=== PATIENT | female | born 1935 | race Caucasian/White ===

== ENCOUNTER 2024-10-12 17:21 | Outpatient (NON) | payer MEDICARE, SELFPAY ==
--- OUTSIDE RECORDS SUMMARY | 2024-10-12 17:26 | XMS_ITS | Clinical Summary ---
Author Organization [facility] 2 Address [address] [facility] [place] [address] Care Team Providers Care Missile Technician Name Role Phone Felipe Rodriguez MD Primary Care Provider Federico Jay MD Unavailable [phone] Allergies Active Allergy Reactions Criticality Noted Date Comments Codeine Other (See comments) Low Reaction: Other Memantine-Donepezil Agitation Low 08/25/2017 Opioids - Morphine Analogues Other (See comments) Low 08/15/2019 According to the family the patient cannot tolerate narcotics as she always needs Narcan for reversal. Only Tylenol for pain control. Medications isosorbide mononitrate ER (IMDUR) 30 mg 24 hr tablet 8 Active levothyroxine (SYNTHROID, LEVOTHROID) 100 mcg tablet 8 Active omeprazole (PriLOSEC) 20 mg capsule 8 Active ipratropium (ATROVENT) 0.03 % nasal spray Active metoprolol XL (TOPROL XL) 25 mg 24 hr tablet Acti ve acetaminophen (TYLENOL EXTRA STRENGTH) 500 mg tablet Active tamsulosin (FLOMAX) 0.4 mg extended release capsule 8 Active polycarbophil (FIBERCON) 625 mg tablet Take 625 mg by mouth daily. Active sennosides (SENNA LAX ORAL) Take by mouth. Active multivitamin (MULTI-DAY ORAL) Take by mouth. Active hydrocortisone 1 % lotion Apply topically 2 (two) times a day. Active DULoxetine DR (CYMBALTA) 20 mg capsule Take two capsules in the evening with food. 60 capsule 1 8 Active Additional Information Patient taking differently: 60 mg, Take two capsules in the evening with food., Reported on 09/14/2019 pregabalin (LYRICA) 100 mg capsule Take 150 mg by mouth 2 (two) times a day Active atorvastatin (LIPITOR) 80 mg tablet Take 80 mg by mouth daily. Active lutein 20 mg capsule Take 20 mg by mouth. Active calcium carbonate (OS-BRITTNEY) 650 mg calcium (1,625 mg) tablet Take 1 tablet by mouth daily Active aspirin 81 mg enteric coated tablet Take 81 mg by mouth daily 9 Active acetaminophen/di phenhydramine (TYLENOL PM EXTRA STRENGTH ORAL) Take by mouth Active vit C/E/Zn/coppr/lut ein/zeaxan (PRESERVISION AREDS-2 ORAL) Take by mouth Ac tive Active Problems Problem Noted Date Diagnosed Date Soft tissue mass 08/18/2018 Overview (08/18/2018): Added automatically from request for surgery [id number] Abnormal findings on diagnostic imaging of diges tive system 08/18/2018 Overview (08/18/2018): Added automatically from request for surgery [id number] Paraparesis of both lower limbs 02/22/2018 Sensory loss 02/22/2018 Neuropathic pain 02/22/2018 Polypharmacy 02/22/2018 Sacroiliitis 10/07/2017 Lumbar radiculopathy 10/07/2017 Spondylolisthesis 08/29/2017 Spinal stenosis of lumbar region 08/29/2017 Disorder of bile duct 08/03/2017 Surgical History Surgery Date Site/Laterality Comments NE ERCP REMOVE CALCULI/DEBRI S BILIARY/PANCREAS DUCT NE CORRJ HLX VLGS BNCTY SESM DC RESCJ PROX PHLX BASE Bunion Correction By Ochoa Procedure - (Added by TW Conv) WRIST SURGERY LUMBAR NERVE STIMLATOR INSERTION 05/24/2018 N/A HYSTERECTOMY CHOLECYSTECTOMY LUMBAR FUSION Medical History Medical History Date Comments DVT (deep venous thrombosis) (HCC) Urinary frequency Arthritis Sciatica Hypertension Memory deficit Myocardial infarction (HCC) Dyslipidemia GERD (gastroesophageal reflux disease) Hypothyroidism Spondylolisthesis Family History Medical History Relation Name Comments Arthritis Brother Diabetes type II Brother Heart disease Brother Hypertension Brother Hypertension Daughter Heart disease Father Alcohol abuse Mother Arthritis Sister Hypertension Sister Stroke Sister Gout Son Heart disease Son Hypertension Son Relation Name Status Comments Brother Daughter Father Mother Sister Son Social History Tobacco Use Types Packs/Day Years Used Date Smoking Tobacco: Former Cigarettes Q uit: 2001 Smokeless Tobacco: Never Alcohol Use Standard Drinks/Week Comments Yes 0 (1 standard drink = 0.6 oz pur e alcohol) RARE Comments Unknown Sex and Gender Information Value Date Recorded Sex Assigned at Not on file Legal Sex Female 3:21 AM JOURNEYMAN PRESSMAN Gender Identity Not on file Sexual Orientation Not on file Obstetrics History Last Filed Vital Signs Vital Sign Reading Time Taken Comments Blood Pressure 170/77 09/14/2019 2:40 PM CDT Pulse 71 09/14/2019 2:40 PM CDT Temperature 36.7 C (98 F) 09/14/2019 2:40 PM CDT Respiratory Rate 11 08/30/2018 2:41 PM JOURNEYMAN PRESSMAN Oxygen Saturation 99% 08/30/2018 2:41 PM JOURNEYMAN PRESSMAN Inhaled Oxygen Concentration - - Weight 64.6 kg (142 lb 6.4 oz) 09/14/2019 2:40 P M CDT Height 149.9 cm (4' 11 ) 08/30/2018 1:12 PM JOURNEYMAN PRESSMAN Body Mass Index 28.76 08/30/2018 1:12 PM JOURNEYMAN PRESSMAN Plan of Treatment Not on file Medical Devices Implanted Type Area Brownell Operator Device Identifier Shelf Expiration Date Model / Serial / Lot Spinal Cord Stimulator- Implanted: by Pasha Sanchez MD (Quantity not on file) Spinal Cord Stimulator Left: Back Med[employer]onic Neuro [id number] / [id number] H / Description:Nerve stimulator for leg pain - confirmed Full Body eligible Pt knows to bring external controller and is able to put into MRI mode. Hardware Spine Lumbar Insurance [place] [id number] MDCR HMO REF [place] [address] Advance Directives For more information, please contact: [phone] Documents on File Type Date Recorded Patient Audio Visual Facilities Engineer Expl anation ADVANCE DIRECTIVE 11/26/2017 12:00 AM ADVANCE DIRECTIVE 09/14/2017 11:22 PM ADVANCE DIRECTIVE 08/15/2017 12:00 AM * Full Code (Latest Code Status on File) Date Activated Date Inactivated Comments 08/30/2018 12:47 PM 08/30/2018 8:48 PM Care Teams Missile Technician Relationship Specialty [place] [address] [place] [address] PCP - General 09/22/17 [place] [address] [place] [address] Referring Physician Gastroenterology 09/04/18
--- OUTSIDE RECORDS SUMMARY | 2024-10-12 17:26 | XMS_ITS | Referral Summary ---
Author Organization [facility] Medical [facility] 2 Address [address] [facility] [place] [address] Care Team Providers Care Glass Toughening Operator Name Role Phone Felipe Rodriguez MD Primary Care Provider Federico Jay MD Unavailable [phone] Allergies Active Allergy Reactions Criticality Noted Date [...] (08/18/2018): Added automatically from request for surgery [id number] Abnormal findings on diagnostic imaging of diges tive system 08/18/2018 Overview (08/18/2018): Added automatically from request for surgery [id number] Paraparesis of both lower limbs 02/22/2018 Sensory loss 02/22/2018 Neuropathic pain 02/22/2018 Polypharmacy 02/22/2018 Sacroiliitis 10/07/2017 Lumbar radiculopathy 10/07/2017 Spondylolisthesis 08/29/2017 Spinal stenosis of lumbar region 08/29/2017 Disorder of bile duct 08/03/2017 Social History Tobacco Use Types Packs/Day Years Used Date Smoking Tobacco: Former Cigarettes Q uit: 2002 Smokeless Tobacco: Never Alcohol Use Standard Drinks/Week Comments Yes 0 (1 standard drink = 0.6 oz pur e alcohol) RARE Comments Unknown Sex and Gender Information Value Date Recorded Sex Assigned at Not on file Legal Sex Female 3:21 AM REEL WINDER Gender Identity Not on file Sexual Orientation Not on file Last Filed Vital Signs Vital Sign Reading Time Taken Comments Blood Pressure 170/77 09/14/2019 2:40 PM CDT Pulse 71 09/14/2019 2:40 PM CDT Temperature 36.7 C (98 F) 09/14/2019 2:40 PM CDT Respiratory Rate 11 08/30/2018 2:41 PM REEL WINDER Oxygen Saturation 99% 08/30/2018 2:41 PM REEL WINDER Inhaled Oxygen Concentration - - Weight 64.6 kg (142 lb 6.4 oz) 09/14/2019 2:40 P M CDT Height 149.9 cm (4' 11 ) 08/30/2018 1:12 PM REEL WINDER Body Mass Index 28.76 08/30/2018 1:12 PM REEL WINDER Plan of Treatment Not on file Medical Devices Implanted Type Area Football Scout Device Identifier Shelf Expiration Date Model / Serial / Lot Spinal Cord Stimulator- Implanted: by Pasha Sanchez MD (Quantity not on file) Spinal Cord Stimulator Left: Back [employer] Neuro [id number] / [id number] H / Description:Nerve stimulator for leg pain - confirmed Full Body eligible Pt knows to bring external controller and is able to put into MRI mode. Hardware Spine Lumbar Insurance [facility] Address: [facility] [address] [place] [address] [facility] Address: [address] [address] [place] [address] [facility] MDCR HMO REF [facility] Address: [address] [address] [place] [address] Advance Directives For more information, please contact: [phone] Documents on File Type Date Recorded Patient Occ Therapist Expl anation ADVANCE DIRECTIVE 11/26/2017 12:00 AM ADVANCE DIRECTIVE 09/14/2017 11:22 PM ADVANCE DIRECTIVE 08/15/2017 12:00 AM * Full Code (Latest Code Status on File) Date Activated Date Inactivated Comments 08/30/2018 12:47 PM 08/30/2018 8:48 PM Care Teams Glass Toughening Operator Relationship Specialty [place] [address] [facility] [address] [place] [address] PCP - General 09/22/17 [place] [address] [place] [address] Referring Physician Gastroenterology 09/04/18
--- OUTSIDE RECORDS SUMMARY | 2024-10-12 17:26 | XMS_ITS | Encounter Summary ---
Author Organization [facility] Address [address] [facility] [place] [address] Care Team Providers Care Butter Grader Name Role Phone Felipe Rodriguez MD Primary Care Provider + Encounter Details Date Type Department Care Team (Late st Contact Info) Description 01/24/2020 Lab Requisition [facility] [address] [facility] [place] [address] Kassandra Reyes MD [address] [facility] [address] [place] [address] Social History Tobacco Use Types Packs/Day Years Used Date Smoking Tobacco: Never Assessed Sex and Gender Information Value Date Recorded Sex Assigned at Not on file Gender Identity Not on file Sexual Orientation Not on file documented as of this encounter Plan of Treatment Not on file documented as of this encounter Procedures Procedure Name Priority Date/Time Associated Diagnosis Comments DERMATOPATHOLOGY Routine 01/23/2020 12:0 0 AM CDT documented in this encounter Results * DERMATOPATHOLOGY (01/23/2020 12:00 AM CDT) Case Report Dermatopathology Report Case: [id number] Authorizing Provider: Kassandra Reyes MD Collected: 01/23/2020 12:00 AM Ordering Location: [facility] Lab Received: 01/24/2020 12:22 PM Pathologist: Keila Luis MD Specimens: A) - Skin, right lower eyelid B) - Skin, right cheek 0 5:15 PM CDT DERMATOPATHOLOGY LABORATORY Final Diagnosis Specimen A. 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 SKIN, right cheek: BLUE NEVUS, COMMON TYPE (D22.9) (see microscopic description) 0 5:15 PM [facility] DERMATOPATHOLOGY [facility]ORATORY Clinical History A: Stedman papule; R/O HAK vs SCC. B: Brown papule; irreg; R/O ISK vs MM. 0 5:15 PM CDT DERMATOPATHOLOGY LABORATORY Gross Description Specimen A: Received is one formalin filled container labeled with the patient's name and designated right lower eyelid. The specimen consists of a shave measuring 1x8a6yf. Jar 0. Specimen B: Received is one formalin filled container labeled with the patient's name and designated right cheek. The specimen consists of a shave measuring 2a2t9im. Jar 0. 0 5:15 PM [facility] DERMATOPATHOLOGY [facility]ORATORY Microscopic Description Specimen A. SKIN, right lower eyelid: The epidermis shows parakeratosis, full thickness disorderly maturation of keratinocytes, mitoses at different levels, and dyskeratotic cells. The lesion extends to the base of the biopsy. COMMENT: An invasive squamous cell carcinoma cannot be ruled out. Specimen B. SKIN, right cheek: Within the dermis there are oval, spindle-shaped and dendritic melanocytes with melanophages. Melanocytes are highlighted by MART-1/Melan-A and HMB-45 (weak, focal). Additional deeper sections were obtained and reviewed. 0 5:15 PM [facility] DERMATOPATH[facility]Y [facility]ORAT[facility] Disclaimer An external and internal positive and negative controls are appropriate for the histochemical, immunohistochemical and immunofluorescence stain(s) in this case (if any), except where stated explicitly. The performance characteristics of the stain(s) cited in this report were developed and its performance characteristic determined by the Dermatopathology Laboratory at [facility], directed by Dr. Dayanna Ewing. These tests need not be, and therefore are not, approved by the [place] Food and Drug Administration. The tests are used for clinical purposes. Billing Codes Specimen Charges Stain Charges 18112 31401 1 1 75386 17956 1 1 0 5:15 PM CDT DERMATOPATHOLOGY LABORATORY Embedded Images 0 5:15 PM CDT DERMATOPATHOLOGY LABORATORY Pathology/Cytology TISSUE SPECIMEN FROM SKIN / Unknown 01/23/2020 01/24/2020 12:22 PM CDT Miscellaneous samples (specimen) TISSUE SPECIMEN FROM SKIN / Unknown 01/23/2020 01/24/2020 12:22 PM CDT Kassandra Reyes MD LAB - PATHOLOGY/CYTO LOGY ORDERABLES DERMATOPATHOLOGY LABORATORY [facility] - Department of Dermatology Senior Painter [place]/[address] [phone] documented in this encounter Visit Diagnoses Not on filedocumented in this encounter Care Teams Butter Grader Relationship Specialty Start Date End Date eFlipe Rodriguez MD PCP - General 01/31/18 documented as of this encounter
--- OUTSIDE RECORDS SUMMARY | 2024-10-12 17:26 | XMS_ITS | Clinical Summary ---
Author Organization [facility] Address [address] [facility] [place] [place] [address] Care Team Providers Care Towel Inspector Name Role Phone Felipe Rodriguez MD Primary Care Provider + Source Comments [facility],non-owned Affiliates and Associated Physician Practices is amultiple site organization consisting of ambulatory clinics and hospital sitesin [place], [place]. This disclosure is being madepursuant to the Care Everywhere program and may not contain all information available regarding this patient. Last updated 18.[facility] Social History Tobacco Use Types Packs/Day Years Used Date Smoking Tobacco: Never Assessed Sex and Gender Information Value Date Recorded Sex Assigned at Not on file Gender Identity Not on file Sexual Orientation Not on file Plan of Treatment Health Maintenance Due Date Last Done Comments BONE DENSITY TESTING 1935 DTAP/TDAP/TD VACCINES (1 - Tdap) 09/27/1954 PNEUMOCOCCAL VACCINE 50+ (1 of 1 - PCV) 09/27/1985 ZOSTER VACCINE (1 of 2) 09/27/1985 Respiratory Syncytial Virus (RSV) Vaccine Pt: or over 60 yrs (1 - 1-dose 75+ series) 09/27/2010 COVID-19 VACCINE ( - 2023-2 5 season) 2024 DEPRESSION SCREENING 07/04/2024 INFLUENZA VACCINE (Season Ended) 2025 HEPATITIS B VACCINE Aged Out No longe r eligible based on patient's age to complete this topic HIB VACCINE Aged Out No longer eligi ble based on patient's age to complete this topic HPV VACCINE Aged Out No longer eligi ble based on patient's age to complete this topic MENINGOCOCCAL (Group B) VACC INE SHARED DECISION-MAKING Aged Out No longer eligibl e based on patient's age to complete this topic MENINGOCOCCAL GROUPS A/C/Y/W VACCINE Aged Out No longer eligible b ased on patient's age to complete this topic Care Teams Towel Inspector Relationship Specialty Start Date End Date Felipe Rodriguez MD PCP - General 01/31/18
--- OUTSIDE RECORDS SUMMARY | 2024-10-12 17:26 | XMS_ITS | Clinical Summary ---
Author Organization Unknown Care Team Providers Care Careers Counsellor Name Role Phone ENE JEFFRIES Unavailable Unavailable DANIEL LICENSED PRACTICAL NURSE, BRENDA gallego Unavailable SHERWIN BRICK HANDLER, RAJEEV Un available Unavailable CASSIE PHYSICAL THERAPIST, DINORAH Unavailable Unavailable RAFAEL SPEECH THERAPIST, MS, CCC/HYDRAULIC BOOM OPERATOR, CARL Un available Unavailable NEERAJ POCKET BUILDER, DANNY Toure ailable Unavailable NATA REGISTERED NURSE CARDIOVASCULAR OR NURSE, MARIA DEL CARMEN López vailable Unavailable NIEVES OCCUPATIONAL THERAPIST, SEJAL Unavailable Unavailable Payers Payer Name Policy Type Policy Number Effective Date Expira tion Date [employer] MEDICARE ADVANTAGE - EPISODIC Problems Condition Name Condition Details Condition Category Status Onset Date Resolution Date Last Treatment Date Treating Clinician Comments METABOLIC ENCEPHALOPAT HY Active 10-02 00:00: 00 HYPERTENSIVE HEART DISEASE WITH HEART FAILURE Active 07-04 00:00: 00 UNSPECIFIED DIASTOLIC (CONGESTIVE) HEART FAILURE Active 07-04 00:00: 00 UNSPECIFIED SEVERE PROTEIN-NILA CHRISTAL MALNUTRITION Active 07-04 00:00: 00 DEPRESSION, UNSPECIFIED Active 07-04 00:00: 00 CHRONIC OBSTRUCTIVE PULMONARY DISEASE, UNSPECIFIED Active 07-04 00:00: 00 HYPOTHYROIDI SM, UNSPECIFIED Active 07-04 00:00: 00 ANXIETY DISORDER, UNSPECIFIED Active 07-04 00:00: 00 UNSPECIFIED OSTEOARTHRIT IS, UNSPECIFIED SITE Active 07-04 00:00: 00 OTHER CHRONIC PAIN Active 07-04 00:00: 00 PURE HYPERCHOLEST EROLEMIA, UNSPECIFIED Active 07-04 00:00: 00 THYROTOXICOS IS, UNSP WITHOUT THYROTOXIC CRISIS OR STORM Active 07-04 00:00: 00 GASTRO-ESOPH AGEAL REFLUX DISEASE WITHOUT ESOPHAGITIS Active 07-04 00:00: 00 MILD COGNITIVE IMPAIRMENT OF UNCERTAIN OR UNKNOWN ETIOLOGY Active 07-04 00:00: 00 UNSPECIFIED CHRONIC GASTRITIS WITHOUT BLEEDING Active 07-04 00:00: 00 OLD MYOCARDIAL INFARCTION Active 07-04 00:00: 00 AGE-RELATED OSTEOPOROSIS W/O CURRENT PATHOLOGICAL FRACTURE Active 07-04 00:00: 00 GASTROSTOMY STATUS Active 07-04 00:00: 00 PERSONAL HISTORY OF OTHER INFECTIOUS AND PARASITIC DISEASES Active 07-04 00:00: 00 PERSONAL HISTORY OF OTHER DISEASES OF THE DIGESTIVE SYSTEM Active 07-04 00:00: 00 PERSONAL HISTORY OF URINARY (TRACT) INFECTIONS Active 07-04 00:00: 00 PERSONAL HISTORY OF NICOTINE DEPENDENCE Active 07-04 00:00: 00 PERSONAL HISTORY OF PNEUMONIA (RECURRENT) Active 07-04 00:00: 00 ACQUIRED ABSENCE OF OTHER SPECIFIED PARTS OF DIGESTIVE TRACT Active 07-04 00:00: 00 ARCHIVAL STUDIES PROFESSOR (CURRENT) USE OF ASPIRIN Active 07-04 00:00: 00 ARCHIVAL STUDIES PROFESSOR (CURRENT) USE OF INHALED STEROIDS Active 07-04 00:00: 00 HORMONE REPLACEMENT THERAPY Active 07-04 00:00: 00 DO NOT RESUSCITATE Active 07-04 00:00: 00 HISTORY OF FALLING Active 07-04 00:00: 00 Allergies, Adverse Reactions, Alerts Allergy Name Allergy Type Status Severity Reaction(s) Onset Date Inactive Date Treating Clinician Comments CODEINE Propensity to adverse reactions Active 10-03 10:06: 49 HYDROMORPHON E Propensity to adverse reactions Active 10-03 10:06: 56 MORPHINE Propensity to adverse reactions Active 10-03 10:07: 05 DONEPEZIL Propensity to adverse reactions Active 10-03 10:07: 12 NALTREXONE Propensity to adverse reactions Active 10-03 10:07: 20 NAMZARIC Propensity to adverse reactions Active 10-03 10:08: 55 PHENYLTOLAXA MINE-ACETAMI NOPHEN Propensity to adverse reactions Active 10-03 10:10: 02 ANY NARCOTICS Propensity to adverse reactions Active 10-09 13:10: 56 Medications Ordered Medication Name Filled Medication Name Start Date Stop Date Current Medication? Ordering Clinician Indication Dosage Frequency Signature (SIG) Comments Components albuterol sulfate HFA 90 mcg/actuati on aerosol inhaler 10-09 00:00: 00 Yes [id number] WHEEZING/SH ORTNESS OF BREATH 2 puff EVERY 6 HOURS 2 puff EVERY 6 HOURS (route: inhalation ) Med Classific ation: Respirato ry Therapy Agents aspirin 81 mg tablet,rosita yed release 10-09 00:00: 00 Yes [id number] CIRCULATION 1 tablet ONCE DAILY 1 tablet ONCE DAILY (route: oral) Alternate Route: G-TUBE. Med Classific ation: Hematolog ical Agents atorvastati n 80 mg tablet 10-09 00:00: 00 Yes [id number] CHOLESTEROL 1 tablet AT BEDTIME 1 tablet AT BEDTIME (route: oral) Alternate Route: G-TUBE. Med Classific ation: Cardiovas cular Therapy Agents Breztri Aerosphere 160 mcg-9mcg-4. 8mcg/actuat ion HFA aerosol inhaler 10-09 00:00: 00 Yes [id number] COPD 2 puff TWICE DAILY 2 puff TWICE DAILY (route: inhalation ) Med Classific ation: Respirato ry Therapy Agents calcium polycarboph il 625 mg tablet 10-09 00:00: 00 Yes [id number] FIBER SUPPLEMENT 1 tablet ONCE DAILY 1 tablet ONCE DAILY (route: oral) Alternate Route: G-TUBE. Med Classific ation: Gastroint estinal Therapy Agents Desitin 40 % topical paste 10-09 00:00: 00 Yes [id number] REDDNESS TO BUTTOCKS 1 gram NEEDED 1 gram NEEDED (route: topical) Med Classific ation: Dermatolo gical dronabinol 2.5 mg capsule 10-09 00:00: 00 Yes [id number] APPETITE 1 capsule TWICE DAILY 1 capsule TWICE DAILY (route: oral) Alternate Route: G-TUBE. Med Classific ation: Gastroint estinal Therapy Agents duloxetine 60 mg capsule,del ayed release 10-09 00:00: 00 Yes [id number] ANXIETY 1 capsule AT BEDTIME 1 capsule AT BEDTIME (route: oral) Alternate Route: G-TUBE. Med Classific ation: Central Nervous System Agents isosorbide mononitrate 10 mg tablet 10-09 00:00: 00 Yes [id number] HIGH BLOOD PRESSURE 3 tablet ONCE DAILY 3 tablet ONCE DAILY (route: oral) Alternate Route: G-TUBE. Med Classific ation: Cardiovas cular Therapy Agents levothyroxi ne 100 mcg tablet 10-09 00:00: 00 Yes [id number] HYPOTHYROID ISM 1 tablet ONCE DAILY 1 tablet ONCE DAILY (route: oral) Alternate Route: G-TUBE. Med Classific ation: Endocrine lisinopril 20 mg tablet 10-09 00:00: 00 Yes [id number] HIGH BLOOD PRESSURE 1 tablet ONCE DAILY 1 tablet ONCE DAILY (route: oral) Alternate Route: G-TUBE. Med Classific ation: Cardiovas cular Therapy Agents loratadine 10 mg tablet 10-09 00:00: 00 Yes [id number] ALLERGIES 1 tablet ONCE DAILY 1 tablet ONCE DAILY (route: oral) Alternate Route: G-TUBE. Med Classific ation: Respirato ry Therapy Agents mecobalamin (vitamin B12) 1,000 mcg chewable tablet 10-09 00:00: 00 Yes [id number] LOW VITAMIN B 1 tablet ONCE DAILY 1 tablet ONCE DAILY (route: oral) Alternate Route: G-TUBE. Med Classific ation: Electroly te Balance-N utritiona l Products melatonin 5 mg tablet 10-09 00:00: 00 Yes [id number] SLEEP 1 tablet AT BEDTIME 1 tablet AT BEDTIME (route: oral) Alternate Route: G-TUBE. Med Classific ation: Central Nervous System Agents methocarbam ol 500 mg tablet 10-09 00:00: 00 Yes [id number] MUSCLE SPASMS-BACK 1 tablet 3 TIMES DAILY 1 tablet 3 TIMES DAILY (route: oral) Alternate Route: G-TUBE. Med Classific ation: Locomotor System metoprolol succinate ER 25 mg tablet,exte nded release 24 hr 10-09 00:00: 00 Yes [id number] HIGH BLOOD PRESSURE 1 tablet ONCE DAILY 1 tablet ONCE DAILY (route: oral) Alternate Route: G-TUBE. Med Classific ation: Cardiovas cular Therapy Agents Miralax 17 gram/dose oral powder 10-09 00:00: 00 Yes [id number] CONSTIPATIO N 17 gram ONCE DAILY 17 gram ONCE DAILY (route: oral) Alternate Route: G-TUBE. Med Classific ation: Gastroint estinal Therapy Agents montelukast 10 mg tablet 10-09 00:00: 00 Yes [id number] ALLERGIES 1 tablet AT BEDTIME 1 tablet AT BEDTIME (route: oral) Alternate Route: G-TUBE. Med Classific ation: Respirato ry Therapy Agents omeprazole 20 mg capsule,del ayed release 10-09 00:00: 00 Yes [id number] GERD 1 capsule ONCE DAILY 1 capsule ONCE DAILY (route: oral) Alternate Route: G-TUBE. Med Classific ation: Gastroint estinal Therapy Agents pregabalin 100 mg capsule 10-09 00:00: 00 Yes [id number] BACK PAIN 1 capsule TWICE DAILY 1 capsule TWICE DAILY (route: oral) Alternate Route: G-TUBE. Med Classific ation: Central Nervous System Agents thiamine HCl (vitamin B1) 100 mg tablet 10-09 00:00: 00 Yes [id number] LOW VITAMIN B 1 tablet ONCE DAILY 1 tablet ONCE DAILY (route: oral) Alternate Route: G-TUBE. Med Classific ation: Electroly te Balance-N utritiona l Products Tylenol Extra Strength 500 mg tablet 10-09 00:00: 00 Yes [id number] BACK PAIN 2 tablet 3 TIMES DAILY 2 tablet 3 TIMES DAILY (route: oral) Alternate Route: G-TUBE. Med Classific ation: Analgesic , Anti-infl ammatory or Antipyret ic Vitamin C 1,000 mg tablet 10-09 00:00: 00 Yes [id number] IMMUNE SUPPORT 1 tablet ONCE DAILY 1 tablet ONCE DAILY (route: oral) Alternate Route: G-TUBE. Med Classific ation: Electroly te Balance-N utritiona l Products Women's 50 Plus Advanced 400 mcg-20 mcg tablet 10-09 00:00: 00 Yes [id number] HEALTH SUPPLEMENT 1 tablet ONCE DAILY 1 tablet ONCE DAILY (route: oral) Alternate Route: G-TUBE. Med Classific ation: Electroly te Balance-N utritiona l Products Jevity 1.5 Seun 0.06 gram-1.5 kcal/mL oral liquid 10-09 00:00: 00 Yes [id number] TUBE FEED Per instruc tions 4 TIMES DAILY Per instructio ns 4 TIMES DAILY (route: oral) Alternate Route: G-TUBE. Med Classific ation: Electroly te Balance-N utritiona l Products Immunizations Ordered Immunization Name Filled Immunization Name Date Status Comments Refusal Reason COVID-19 MONOVALENT, MRNA 2024-04-20 00:00:00 INFLUENZA, TIV (INACTIVATED) 2024-04-20 00:00:00 PNEUMOCOCCAL (PPV), PPV 2021-02-10 00:00:00 Vital Signs Vital Name Observation Time Observation Value Commen ts Temperature 2024-10-12 12:15:11.000 97.8 [degF] Temperature 2024-10-11 13:06:00.000 98.7 [degF] Temperature 2024-10-09 13:59:00.000 97.3 [degF] BMI (%) 2024-10-09 13:59:00.000 31 kg/m2 Height 2024-10-09 13:59:00.000 59 [in_us] Pulse 2024-10-12 12:15:04.000 64 /min Pulse 2024-10-11 13:06:00.000 68 /min Pulse 2024-10-09 13:59:00.000 68 /min O2 Saturation (%) 2024-10-11 13:06:00.000 97 % O2 Saturation (%) 2024-10-09 13:59:00.000 92 % Respirations 2024-10-11 13:06:00.000 16 /min Respirations 2024-10-09 13:59:00.000 16 /min Weight (lbs) 2024-10-09 13:59:00.000 154 [lb_av] Systolic Blood Pressure 2024-10-12 12:18:08.000 128 mm [Hg] Systolic Blood Pressure 2024-10-11 13:06:00.000 124 mm [Hg] Systolic Blood Pressure 2024-10-09 14:59:00.000 118 mm [Hg] Diastolic Blood Pressure 2024-10-12 12:18:08.000 64 mm [Hg] Diastolic Blood Pressure 2024-10-11 13:06:00.000 68 mm [Hg] Diastolic Blood Pressure 2024-10-09 14:59:00.000 52 mm [Hg] Plan of Treatment Planned Activity Planned Date Details Comments Future Scheduled Test SKILLED NU RSE TO INSTRUCT PATIENT/CAREGIVER ON WHAT IS HYPERTENSION, HOW TO CHECK HIS/HER BLOOD PRESSURE, AND STRATEGIES TO USE TO CONTROL BLOOD PRESSURE SUCH MONITORING BP, ENGAGING IN PHYSICAL ACTIVITY AIMING FOR 150 MINUTES SPREAD THROUGHOUT THE WEEK. [code = SKILLED NURSE TO INSTRUCT PATIENT/CAREGIVER ON WHAT IS HYPERTENSION, HOW TO CHECK HIS/HER BLOOD PRESSURE, AND STRATEGIES TO USE TO CONTROL BLOOD PRESSURE SUCH MONITORING BP, ENGAGING IN PHYSICAL ACTIVITY AIMING FOR 150 MINUTES SPREAD THROUGHOUT THE WEEK.] Future Scheduled Test HOME HEALT H NURSE WILL TEACH PATIENT/CAREGIVER ABOUT HEART FAILURE, EDEMA, AND HOW TO WEIGH DAILY AT THE SAME TIME EVERY MORNING AFTER URINATING AND BEFORE BREAKFAST. INSTRUCT PATIENT TO CHECK FOR LBS. OF WEIGHT GAIN CAUSED BY INCREASED FLUID AND CONTACT THE PHYSICIAN IF 2LBS WEIGHT GAIN IN 1 DAY OR 5LBS WEIGHT GAIN IN 1 WEEK. HOME HEALTH RN TO TEACH PATIENT ABOUT WARNING SIGNS TO CONTACT THE AGENCY, PHYSICIAN, OR 911. MAY ADD PRN VISITS PER MONTH FOR SIGNS/SYMPTOMS OF EXACERBATION SUCH INCREASED EDEMA, WEIGHT GAIN, SHORTNESS OF BREATH, OR FATIGUE. [code = HOME HEALTH NURSE WILL TEACH PATIENT/CAREGIVER ABOUT HEART FAILURE, EDEMA, AND HOW TO WEIGH DAILY AT THE SAME TIME EVERY MORNING AFTER URINATING AND BEFORE BREAKFAST. INSTRUCT PATIENT TO CHECK FOR LBS. OF WEIGHT GAIN CAUSED BY INCREASED FLUID AND CONTACT THE PHYSICIAN IF 2LBS WEIGHT GAIN IN 1 DAY OR 5LBS WEIGHT GAIN IN 1 WEEK. HOME HEALTH RN TO TEACH PATIENT ABOUT WARNING SIGNS TO CONTACT THE AGENCY, PHYSICIAN, OR 911. MAY ADD PRN VISITS PER MONTH FOR SIGNS/SYMPTOMS OF EXACERBATION SUCH INCREASED EDEMA, WEIGHT GAIN, SHORTNESS OF BREATH, OR FATIGUE.] Future Scheduled Test [facility] TIFYING PHYSICIAN, ASSOCIATED PHYSICIAN, NPP OR PA WITHIN THE SAME GROUP MAY APPROVE AND SIGN THE ORDER (ON ANY PAGE) ATTESTING THAT THE COMPREHENSIVE OUTCOME ASSESSMENTS, EVALUATIONS, AND HOME HEALTH CERTIFICATION PLANS SUPPORT HOMEBOUND STATUS. HOME HEALTH WEB-PORTAL DOCUMENTATION ACCESSED BY THE PHYSICIAN MUST BE INCORPORATED INTO THE MEDICAL RECORD TO CORROBORATE THE PHYSICIAN, NPP, OR PAS F2F ENCOUNTER TO SUPPORT ELIGIBILITY FOR HOME HEALTH SERVICES. [code = THE CERTIFYING PHYSICIAN, ASSOCIATED PHYSICIAN, NPP OR PA WITHIN THE SAME GROUP MAY APPROVE AND SIGN THE ORDER (ON ANY PAGE) ATTESTING THAT THE COMPREHENSIVE OUTCOME ASSESSMENTS, EVALUATIONS, AND HOME HEALTH CERTIFICATION PLANS SUPPORT HOMEBOUND STATUS. HOME HEALTH WEB-PORTAL DOCUMENTATION ACCESSED BY THE PHYSICIAN MUST BE INCORPORATED INTO THE MEDICAL RECORD TO CORROBORATE THE PHYSICIAN, NPP, OR PAS F2F ENCOUNTER TO SUPPORT ELIGIBILITY FOR HOME HEALTH SERVICES.] Future Scheduled Test EACH ORDER ED IN-HOME OR TELEHEALTH VISIT, THE SKILLED NURSE WILL CONDUCT A COMPREHENSIVE ASSESSMENT INCLUDING VITAL SIGNS, PAIN, SAFETY, MENTAL/COGNITIVE/PSYCHOSOCIAL STATUS, MED MANAGEMENT, NUTRITION, SKIN INTEGRITY, PRESSURE ULCER PREVENTION, AND PATIENT/CAREGIVER ABILITY TO SUPPORT ORDERED CARE. SKILLED NURSE WILL INSTRUCT ON DISEASE PROCESS, MED MGMT., FALL PREVENTION AND SAFETY, INFECTION CONTROL AND PREVENTION, WARNING SIGNS, ADDRESS RESULTS OUTSIDE OF ORDERED PARAMETERS LISTED ON CARE PLAN, AND COORDINATE DISCHARGE WITH THE TREATING PROVIDER. MAY ACCEPT ORDERS FROM THE FOLLOWING PROVIDER(S) WHO WILL BE CONSULTING ON THE CERTIFIED CARE PLAN: DR. ENE JEFFRIES, DR. SALIMA QURESHI, DR. MAXX REDDY, DR. NEIL ALMEIDA AND ANYONE COVERING IN THEIR ABSENCE. [code = EACH ORDERED IN-HOME OR TELEHEALTH VISIT, THE SKILLED NURSE WILL CONDUCT A COMPREHENSIVE ASSESSMENT INCLUDING VITAL SIGNS, PAIN, SAFETY, MENTAL/COGNITIVE/PSYCHOSOCIAL STATUS, MED MANAGEMENT, NUTRITION, SKIN INTEGRITY, PRESSURE ULCER PREVENTION, AND PATIENT/CAREGIVER ABILITY TO SUPPORT ORDERED CARE. SKILLED NURSE WILL INSTRUCT ON DISEASE PROCESS, MED MGMT., FALL PREVENTION AND SAFETY, INFECTION CONTROL AND PREVENTION, WARNING SIGNS, ADDRESS RESULTS OUTSIDE OF ORDERED PARAMETERS LISTED ON CARE PLAN, AND COORDINATE DISCHARGE WITH THE TREATING PROVIDER. MAY ACCEPT ORDERS FROM THE FOLLOWING PROVIDER(S) WHO WILL BE CONSULTING ON THE CERTIFIED CARE PLAN: DR. ENE JEFFRIES, DR. SALIMA QURESHI, DR. MAXX REDDY, DR. NEIL ALMEIDA AND ANYONE COVERING IN THEIR ABSENCE. ] Future Scheduled Test SKILLED NU RSE TO OBSERVE AND ASSESS PATIENT WITH GENERALIZED DEPRESSION AND TEACH DEPRESSIVE SYMPTOMS. [code = SKILLED NURSE TO OBSERVE AND ASSESS PATIENT WITH GENERALIZED DEPRESSION AND TEACH DEPRESSIVE SYMPTOMS.] Future Scheduled Test SKILLED NU RSE TO ASSESS PATIENT WITH ANXIETY DISORDER AND TEACH SYMPTOMS OF ANXIETY. [code = SKILLED NURSE TO ASSESS PATIENT WITH ANXIETY DISORDER AND TEACH SYMPTOMS OF ANXIETY.] Future Scheduled Test HOME HEALT H NURSE TO INSTRUCT ON URINARY TRACT INFECTION, PREVENTION, SYMPTOMS AND WHEN TO REPORT TO THE AGENCY, PHYSICIAN, OR 911. [code = HOME HEALTH NURSE TO INSTRUCT ON URINARY TRACT INFECTION, PREVENTION, SYMPTOMS AND WHEN TO REPORT TO THE AGENCY, PHYSICIAN, OR 911.] Future Scheduled Test SKILLED NU RSE TO INSTRUCT ON URINARY INCONTINENCE INCLUDING CAUSES AND MANAGEMENT STRATEGIES. [code = SKILLED NURSE TO INSTRUCT ON URINARY INCONTINENCE INCLUDING CAUSES AND MANAGEMENT STRATEGIES.] Future Scheduled Test HOME HEALT H NURSE TO INSTRUCT PATIENT/CAREGIVER ON HYPOTENSION, SIGNS AND SYMPTOMS TO REPORT, TO KEEP A VITAL SIGN LOG, TO MONITOR BLOOD PRESSURE SIT TO STAND, AND TO ADDRESS DIETARY NEEDS TO HELP DECREASE SIGNS AND SYMPTOMS RELATED TO HYPOTENSION. [code = HOME HEALTH NURSE TO INSTRUCT PATIENT/CAREGIVER ON HYPOTENSION, SIGNS AND SYMPTOMS TO REPORT, TO KEEP A VITAL SIGN LOG, TO MONITOR BLOOD PRESSURE SIT TO STAND, AND TO ADDRESS DIETARY NEEDS TO HELP DECREASE SIGNS AND SYMPTOMS RELATED TO HYPOTENSION.] Future Scheduled Test SKILLED NU RSE TO EDUCATE ON PREPARATION/ADMINISTRATION OF GASTROSTOMY FEEDING. ADMINISTER JEVITY 1.5 KCAL VIA BOLUS FEEDING 4X DAILY. 237 ML @ 0800, 1200, 1600 AND 119 ML @ 2000. FLUSH TUBE WITH 30 ML OF FREE WATER BEFORE AND AFTER EACH FEEDING. RESIDUALS NOT ORDERED. SITE TO BE CLEANSED ITH WARM SOAP AND WATER OR STERILE SALINE USING COTTON TIPPED APPLICATOR WITH NEW SPLIT GAUZE TO BE REAPPLIED, SECURED WITH PAPER TAPE. TO BE CHANGED DAILY AND NEEDED FOR SOILAGE OR LOOSENESS. MAY COVER PEG TUBING AND CLAMP WITH DRY DRESSING FOR COMFORT. MAY WEAR ABDOMINAL BINDER. CAREGIVER TO COMPLETE AFTER RETURN DEMONSTATIO OF PROPER TECHNIQUE. MAY ADD 2 PRN VISITS PER MONTH FOR FEEDING TUBE COMPLICATIONS OR SITE COMPLICATIONS. [code = SKILLED NURSE TO EDUCATE ON PREPARATION/ADMINISTRATION OF GASTROSTOMY FEEDING. ADMINISTER JEVITY 1.5 KCAL VIA BOLUS FEEDING 4X DAILY. 237 ML @ 0800, 1200, 1600 AND 119 ML @ 2000. FLUSH TUBE WITH 30 ML OF FREE WATER BEFORE AND AFTER EACH FEEDING. RESIDUALS NOT ORDERED. SITE TO BE CLEANSED ITH WARM SOAP AND WATER OR STERILE SALINE USING COTTON TIPPED APPLICATOR WITH NEW SPLIT GAUZE TO BE REAPPLIED, SECURED WITH PAPER TAPE. TO BE CHANGED DAILY AND NEEDED FOR SOILAGE OR LOOSENESS. MAY COVER PEG TUBING AND CLAMP WITH DRY DRESSING FOR COMFORT. MAY WEAR ABDOMINAL BINDER. CAREGIVER TO COMPLETE AFTER RETURN DEMONSTATIO OF PROPER TECHNIQUE. MAY ADD 2 PRN VISITS PER MONTH FOR FEEDING TUBE COMPLICATIONS OR SITE COMPLICATIONS.] Future Scheduled Test PHYSICAL T HERAPIST TO EVALUATE AND TREAT [code = PHYSICAL THERAPIST TO EVALUATE AND TREAT] Future Scheduled Test OCCUPATION AL THERAPIST TO EVALUATE AND TREAT [code = OCCUPATIONAL THERAPIST TO EVALUATE AND TREAT] Future Scheduled Test SPEECH GRABIEL GUAGE PATHOLOGIST TO EVALUATE AND TREAT. [code = SPEECH LANGUAGE PATHOLOGIST TO EVALUATE AND TREAT.] Future Scheduled Test HOME HEALT H AIDE SERVICE FOR ASSISTANCE WITH PERSONAL CARE, HYGIENE AND ACTIVITIES OF DAILY LIVING. [code = HOME HEALTH AIDE SERVICE FOR ASSISTANCE WITH PERSONAL CARE, HYGIENE AND ACTIVITIES OF DAILY LIVING.] Goal Patient Goal - S OC 10/09/24: TO REMAIN FREE FROM FALLS, INFECTIONS, AND HOSPITALIZATIONS. TO GET ADEQUATE NUTRITION AND HYDRATION THROUGH TUBE FEEDING AND ORAL INTAKE. Goal Provider Goal - PATIENT/CAREGIVER WILL INDEPENDENTLY DEMONSTRATE HOW TO CHECK HIS/HER OWN BP AND VERBALIZE WHAT STRATEGIES CAN ASSIST TO CONTROL BLOOD PRESSURE. Goal Provider Goal - PATIENT/CAREGIVER WILL DEMONSTRATE AND ADHERE TO WEIGHING DAILY WITH THE USE OF TRACKING LOG. PATIENT WILL VERBALIZE WAYS TO MONITOR FLUID OVERLOAD FROM OWN QUALITY OF SLEEP, EDEMA, TIGHT-FITTING CLOTHES, QUALITY OF BREATHING, AND CHANGES IN FEELING MORE TIRED OR WEEK BY THE END OF HOME HEALTH SERVICES. Goal Provider Goal - A PLAN OF CARE WILL BE ESTABLISHED THAT MEETS ALL PATIENT'S CARE HOME NEEDS AND COUNTER SIGNED BY PHYSICIAN. Goal Provider Goal - PATIENT WILL BE FREE OF FALLS AND HOSPITALIZATIONS THROUGHOUT EPISODE OF CARE. PATIENT/CAREGIVER WILL UNDERSTAND AND ADHERE TO ORDERED DIET. PATIENT/CAREGIVER WILL INDEPENDENTLY MANAGE MEDICATIONS, UNDERSTAND ANY CHANGES, SIDE EFFECTS TO REPORT BY EOE. PATIENT WILL BE FREE OF INFECTION AND UNDERSTAND MEASURES OF PREVENTION. PATIENT/CAREGIVER WILL COLLABORATE WITH SKILLED NURSE TO DEVELOP POC AT SOC AND ON AN ONGOING BASIS UPDATES ARE NEEDED. UNDERSTAND PROGRESS MADE/DISCHARGE PLANNING. ADDITIONAL ORDERS WILL BE RECEIVED FROM ALTERNATE PHYSICIANS IN A TIMELY MANNER. Goal Provider Goal - PATIENT/CAREGIVER WILL VERBALIZE UNDERSTANDING OF THE CONTRIBUTING FACTORS AND SYMPTOMS OF DEPRESSION. Goal Provider Goal - PATIENT/CAREGIVER WILL VERBALIZE UNDERSTANDING OF THE CONTRIBUTING FACTORS AND SYMPTOMS OF ANXIETY. Goal Provider Goal - PATIENT/CAREGIVER WILL INDEPENDENTLY VERBALIZE WAYS TO PREVENT A UTI AND VERBALIZE SYMPTOMS TO REPORT TO THE PHYSICIAN BY THE END OF HOME HEALTH SERVICES. Goal Provider Goal - PATIENT/CAREGIVER WILL INDEPENDENTLY DEMONSTRATE STRATEGIES TO MANAGE INCONTINENCE AND PROBLEMS THAT CAN DEVELOP FROM BEING INCONTINENT. Goal Provider Goal - PATIENT/CAREGIVER WILL DEMONSTRATE USE OF A LOG TO TRACK BLOOD PRESSURE READINGS AND VERBALIZE UNDERSTANDING OF WHEN TO CALL THE PHYSICIAN BY THE END OF HOME HEALTH SERVICES. Goal Provider Goal - PATIENT/CAREGIVER WILL INDEPENDENTLY DEMONSTRATE THE ABILITY TO MANAGE CARE OF SITE, EQUIPMENT, AND FLUSHING. PATIENT/CAREGIVER WILL INDEPENDENTLY VERBALIZE SYMPTOMS TO REPORT TO THE PHYSICIAN BY END OF HOME HEALTH SERVICES. Goal Provider Goal - Goal Provider Goal - Goal Provider Goal - Goal Provider Goal - PATIENT WILL RECEIVE ASSISTANCE WITH PERSONAL CARE AND HYGIENE AND OTHER ACTIVITIES OF DAILY LIVING NEEDED. Progress Notes Progress Notes <paragraph>[Visit Date: 2024 by MARIA DEL CARMEN PEACE REGISTERED NURSE CARDIOVASCULAR OR NURSE]:</paragraph><paragraph>PTNT BEING SEEN BY SN FOR METABOLIC ENCEPHALOPATHY. HOSPITALIZED AT [facility] FROM 09/26-10/09. PMH: SEPSIS, UTI, MALNUTRITION, HTN, CHF, ANGINA, COPD, HYPOTHYROIDISM, ANXIETY, DEPRESSION, OA, OP, HLD, THYROTOXICOSIS, CHRONIC GASTRITIS, GA, SYNCOPE, PNA, NEUROSTIMULATOR, HYPOKALEMIA, HYPONATREMIA, HYPERURICEMIA, SPINAL STENOSIS GREETED AT DOOR BY PTNT DTRRADHA. SN ENTERED HOME TO FIND PTNT RESTING IN HOSPITAL BED. PTNT DISCHARGED HOME TODAY AND IS VERY TIRED AFTER CAR RIDE. PTNT LIVES ALONE. DTR LIVES NEXT DOOR. THERE ARE 4 SONS WHO HELP WITH CARE. PRIVATE PAY CG DURING THE WEEK TO ASSIST WITH CARE. PTNT CG PRESENT DURING VISIT. PTNT SLEEPY AND ORIENTED X3 (-TIME), VERY FORGETFUL, SOMEWHAT PARTICIPATING IN CARE. COMPREHENSIVE ASSESSMENT COMPLETED. VSS, HR REG, LUNGS DIMINISHED ALL RIVERA, BSX4, ABD DISTENDED AND TENDER, LBM 4/7, G- TUBE IN PLACE LUQ, NO EDEMA, +2 PEDAL PULSES. DORA FOOT DROP NOTED, SKIN CHECK PERFORMED. PTNT SHOWS NO BREAKDOWN IN SKIN INTEGRITY. DOES HAVE BLANCHABLE REDDNESS TO DORA BUTTOCKS-MOISTURE ASSOCIATED. PTNT DENIES CHEST PAIN, FEVER, CHILLS, SOB, NEW COUGH, OR DYSURIA. PAIN 5/10 ABD PTNT HAS ADEQUATE DME IN HOME: ROLLATOR, MOTORIZED WHEELCHAIR, MANUAL WHEELCHAIR, STAND-AID, HOSPITAL BED, [place], BED ALARM, LIFE ALERT. PTNT NOT ABLE TO PERFORM WALK TEST TODAY. PTNT ABLE TO INTAKE PO-SOFT DIET WITH THIN LIQUIDS. SHE HAS TUBE FEEDING QID FOR SUPPLEMENT. PTNT CG-RADHA COMPLETED NOON TUBE FEEDING WITH SN PRESENT. SN OBSERVED PTNT CG INDEPENDENCE WITH PROPER RETURN DEMONSTRATION. MEDICATION RECONCILLIATION COMPLETED. SN EDUCATED PTNT ON EACH MEDICATION TAKING INCLUDING ROUTE, PURPOSE, DOSE, TIME, AND POTENTIAL SIDE EFFECTS. PTNT VERBALIZED UNDERSTANDING. SIGNIFICANT MEDICATION ISSUES FOUND DURING REVIEW (SEE NOTE) PTNT APT 11/30 DR. REDDY (CARDIO), 02/06 DR. ALMEIDA (NEURO). SN INSTRUCTED PTNT TO BRING MEDICATION LIST AND ARRIVE 15 MIN EARLY FOR CHECK-IN. PTNT VERBALIZED UNDERSTANDING. INSTRUCTED ON SIGNS AND SYMPTOMS OF COVID-19 AND HOW IT IS TRANSMITTED. INSTRUCTED ON NEED FOR WEARING MASK, MAINTAINING SOCIAL DISTANCING, ADEQUATE HAND WASHING, NOT TOUCHING THEIR FACE, AND AVOIDING CROWDS. INSTRUCTED TO NOTIFY SN WITH ANY FEVER, CHILLS, BODY ACHES, SINUS DRAINAGE, HEADACHE, WORSENING SOB, COUGH, LOSS OF SENSE OF TASTE, AND DIARRHEA. INSTRUCTED ON PAIN RELIEF, FALL PRECAUTIONS, INFECTION CONTROL, PRESSURE RELIEF, AND SX OF UTI AND WHEN TO CALL AGENCY. REVIEWED START OF CARE PACKET INFORMATION WITH PATIENT/CG (AGENCY NUMBER, PATIENT BILL OF RIGHTS, GRIEVANCE PROCEDURE, EMERGENCY PREPAREDNESS, GOALS, AND STATE HOTLINE NUMBER). FOR FURTHER PATIENT REFERENCE AND REMINDERS, THIS INFORMATION WAS CIRCLED/HIGHLIGHTED AT THIS TIME. VERBALIZES UNDERSTANDING OF ALL INSTRUCTIONS. PTNT IN STABLE CONDITION UPON DEPARTURE FROM HOME.</paragraph> Encounters Start Date/Time End Date/Time Encounter Type Admission Type Attending Clinicians Care Facility Care Department Encounter ID Discharge Date Discharge Status Discharge Condition Discharge Reason Percent Goals Met 2024-10-09 00:00:00 2024-12-07 00:00:00 Outpatient NEW ADMISSION [facility] [facility] [id number]
--- OUTSIDE RECORDS SUMMARY | 2024-10-12 17:26 | XMS_ITS | Encounter Summary ---
Author Organization [facility] Address [address] [place] [address] Phone Care Team Providers Care Drug Abuse Treatment Specialist Name Role Phone Felipe Rodriguez MD Primary Care Provider Federico Jay MD Unavailable [phone] Encounter Details Date Type Department Care Team (Latest Contact Info) Description 10/20/2017 Orders Only [facility] CONVERSION Scanning, Provider Social History Tobacco Use Types Packs/Day Years Used Date Smoking Tobacco: Former Comments Unknown Sex and Gender Information Value Date Recorded Sex Assigned at Not on file Legal Sex Female 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 Gender Identity Not on file Sexual Orientation Not on file documented as of this encounter Plan of Treatment Not on file documented as of this encounter Procedures Procedure Name Priority Date/Time Associated Diagnosis Comments VASCULAR LABORATORY REPORT 10/20/2017 7:05 AM CDT documented in this encounter Results * VASCULAR LABORATORY REPORT (10/20/2017 7:05 AM CDT) Anatomical Region Laterality Modality Ultrasound us Provider Scanning CV VASCULAR PROCEDURES Final R esult documented in this encounter Visit Diagnoses Not on filedocumented in this encounter Care Teams Drug Abuse Treatment Specialist Relationship Specialty [place] [address] [place] [address] PCP - General 09/22/17 [place] [address] [place] [address] Referring Physician Gastroenterology 09/04/18 documented as of this encounter
--- OUTSIDE RECORDS SUMMARY | 2024-10-12 17:26 | XMS_ITS | Continuity of Care Document ---
Author Organization [facility] Address [address] [place] [address] [place] [address] Phone Care Team Providers Care Moisture Meter Reader Name Role Phone Artem Salmeron Unavailable Unavailable Advance Directives Directive Yes / No Effective Date File Name No Information Encounters Encounter Description Practice Location Reason(s) For Visit Diagnoses Date Provider Providers Copied on Encounter [facility], [address], [place], [id number], [place] tel:[phone] [facility] ([facility]) No Information Faviola Mcgill. [address], [place], [facility] [place], [place]. tel:[phone] Referring Provider: Aminata Peters, [address] [place] [address], [place], [facility]. tel:[phone] Family History Family Member Type Diagnosis Age At Onset No Information Payers Payer name Insurance type Covered republican ID Authoriza tion(s) No Information Social History [...]
--- OUTSIDE RECORDS SUMMARY | 2024-10-12 17:27 | XMS_ITS | CONTINUITY OF CARE DOCUMENT ---
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 Raghav Fish MD HTN-12/10 ECHO EF 55 -3/07 EC HO EF 60 active ? Roberto Landry RN HYPERCHOLESTEROLEMIA-LABS PE Uri PEREZ active ? Raghav Fish MD CHEST PAIN-NL STRESS TEST 2009 active Jasmin Fish MD HEALTH MAINTENANCE EXAM completed - Raghav Fish MD ENCOUNTERS Date Type Provider Location Encounter Diag nosis - In-person encounter Office Visit Raghav Fish MD [facility] - In-person encounter Office Visit Raghav Fish MD [facility] CHEST PAIN-NL STRESS TEST 2009HEALTH MAINTENANCE EXAM - In-person encounter Office Visit Raghav Fish MD [facility] - In-person encounter Office Visit Raghav Fish MD [facility] CAD-8/07 NUC SUB MAXHTN-12/10 ECHO EF 55 -3/07 ECHO EF 60HYPERCHOLESTEROLEM IA-LABS PER ANA VITAL SIGNS Date Observation Value Provider blood pressure, diastolic 51 mm[Hg] Jamil ayaladayne Marcelino blood pressure, systolic 101 mm[Hg] Mauro Marcelino pulse rate 70 /min Mendez Marcelino oxygen saturation, oximetry 95 % Mendez Marcelino respiratory rate E&M 16 /min Mendez Marcelino weight E&M 161 [lb_av] Mendez Marcelino blood pressure, diastolic, left arm 59 mm [Hg] Efrain Manacop blood pressure, systolic, left arm 144 mm [Hg] Efrain Manacop blood pressure, diastolic, right arm 89 m m[Hg] Efrain Man[place] blood pressure, systolic, right arm 154 m m[Hg] Efrain [place] blood pressure, diastolic 89 mm[Hg] Tisha seph [place] blood pressure, systolic 154 mm[Hg] Fernando eph [place] pulse rate 88 /min Efrain Man[place] oxygen saturation, oximetry 97 % Efrain Man[place]op respiratory rate E&M 16 /min Efrain [place] weight E&M 161 [lb_av] Efrain Man[place]op blood pressure, diastolic 82 mm[Hg] Tisha seph [place] blood pressure, systolic 148 mm[Hg] Fernando eph [place] pulse rate 64 /min Efrain Manacop oxygen saturation, oximetry 96 % Efrain Manacop respiratory rate E&M 16 /min Efrain Manacop weight E&M 161 [lb_av] Efrain Manacop blood pressure, diastolic 69 mm[Hg] Tisha seph [place] blood pressure, systolic 143 mm[Hg] Fernando eph [place] pulse rate 82 /min Efrain Manacop oxygen saturation, oximetry 95 % Efrain Manacop respiratory rate E&M 16 /min Efrain Manacop weight E&M 159 [lb_av] Efrain Bianchi ALLERGIES Allergy Name Onset Date Reaction Criticality Status MUSCLE RELAXER High Criticality acti ve RESULTS Date Observation Value Provider Reference Range Interpretation Location 0 thyroid stimulating hormone, serum 0.40 u[IU]/mL Elizabeth Negron RN 0 platelet count 236 10*3/uL Elizabeth Negron RN 0 hematocrit, blood 39.0 % Elizabeth Negron RN 0 hemoglobin, blood 13.3 g/dL Elizabeth Negron RN 0 leukocyte count, blood 6.7 10*3/mm3 Elizabeth Negron RN 0 triglyceride, serum, fasting 325 mg/dL Elizabeth Negron RN 0 HDL cholesterol, serum 51 mg/dL Elizabeth Negorn RN 0 LDL cholesterol, serum 143 mg/dL Elizabeth Negron RN 0 cholesterol, serum 259 mg/dL Elizabeth Negron RN HISTORY OF MEDICATION USE Medication Status Instructions Dates Provider Indications Com ments CRESTOR TABLET completed 1 tablet by mouth daily - Mendez Marcelino RESTASIS 0.05 % OPHTHALMIC EMULSION completed 2 per day in both eyes - Mendez Marcelino FISH OIL 1000 MG ORAL CAPSULE active twice daily Rosa Elena [place] AVALIDE 300-12.5 MG ORAL TABLET active 1/2 tablet daily Rosa Elena [place] CRESTOR 20 MG ORAL TABLET completed ONE TAB. DAILY - Rosa Elena Jose NITROQUICK SUBL active 0.4mg underneath the tongu as needed Efrain Bianchi PAXIL 10 MG ORAL TABLET active ONE TAB. DAILY Kelli Stahlschmidt CALCIUM + D TABLET active 1200mg 1 tablet by mouth daily Efrain Bianchi ASPIRIN 81 MG ORAL TABLET active ONE TAB. DAILY Kelli Stahlschmidt BIOTIN TABS active twice daily Rosa Elena Jose AMITRIPTYLINE HCL 25 MG ORAL TABLET active ONE TAB. DAILY Kelli Stahlschmidt LEVOTHROID 100 MCG TABS active ONE TAB. DAILY Kelli Stahlschmidt AVAPRO 150 MG ORAL TABLET active ONE TAB. DAILY Kelli Stahlschmidt LIPITOR 20 MG ORAL TABLET completed 1 tablet by mouth daily - Elizabeth Negron RN PREMARIN TABS active 0.625mg 1 tablet by mouth once daily Efrain Bianchi OMEPRAZOLE 20 MG ORAL CAPSULE DELAYED RELEASE active ONE TAB. DAILY Kelli Stahlschmidt ISOSORBIDE MONONITRATE ER 30 MG ORAL TABLET EXTENDED RELEASE 24 HOUR active one tab. daily Kelli Stahlschmidt METOPROLOL TARTRATE 50 MG ORAL TABLET active ONE TAB TWICE DAILY Kelli Stahlschmidt NABUMETONE 750 MG ORAL TABLET active ONE TAB TWICE DAILY Kelli Stahlschmidt SOCIAL HISTORY Date Observation Value Provider social history reviewed E&M reviewed Roberto Landry RN social history reviewed E&M reviewed Raghav Fish MD social history E&M Marital Statu s: L zackery with family/friends E thnicity: Raghav Fish MD drug use none Raghav Fish MD social history reviewed E&M reviewed Raghav Fish MD social history E&M Marital Statu s: L zackery with family/friends E thnicity: Roberto Landry RN social history reviewed E&M reviewed Roberto Landry RN number of years as a smoker 10 years or m ore [employer] smoking status Quit [facility] MENTAL STATUS Date Observation Value Provider assessment of judgme nt and insight E&M Alert and oriented to time, place and person. Mood and affect are normal. Roberto Landry RN assessment of judgme nt and insight E&M Alert and oriented to time, place and person. Mood and affect are normal. Raghav Fish MD assessment of judgme nt and insight E&M Alert and oriented to time, place and person. Mood and affect are normal. Roberto Landry RN assessment of judgme nt and insight E&M Alert and oriented to time, place and person. Mood and affect are normal. Roberto Landry RN INSURANCE PROVIDERS Payer name Policy type / Coverage type [place] red libertarian ID [employer] MEDICARE COMPLETE HMO Other [id number] TREATMENT PLAN Date Name Performer follow up: T he following medications were removed from the medication list: Crestor Tabs (Rosuvastatin calcium tabs) ..... 1 tablet by mouth daily Her updated medication list for this problem includes: Metoprolol Tartrate 50 Mg Tabs (Metoprolol tartrate) ..... One tab twice daily Isosorbide Mononitrate Cr 30 Mg Tb24 (Isosorbide mononitrate) ..... One tab. daily Aspirin 81 Mg Tabs (Aspirin) ..... One tab. daily Nitroquick Subl (Nitroglycerin subl) ..... 0.4mg underneath the tongu as needed BP today: 101/51 Prior BP: 154/89 (12/09/2009) N uclear Stress Findings: EF - 54%. S ubmaximal stress test. N o EKG changes diagnostic for ischemia. N ormal myocardial perfusion without infarct or ischemia. (02/28/2007) C HOL: 259 (01/10/2009) LDL: 143 (01/10/2009) HDL: 51 (01/10/2009) T (01/10/2009) H gb: 13.3 (01/10/2009) HCT: 39.0 (01/10/2009) WBC: 6.7 (01/10/2009) T SH: 0.40 (01/10/2009) Raghav Fish MD follow up: H er updated medication list for this problem includes: Metoprolol Tartrate 50 Mg Tabs (Metoprolol tartrate) ..... One tab twice daily Avapro 150 Mg Tabs (Irbesartan) ..... One tab. daily Aspirin 81 Mg Tabs (Aspirin) ..... One tab. daily Avalide 300-12.5 Mg Tabs (Irbesartan-hydrochlorothiazide) ..... 1/2 tablet daily BP today: 101/51 P rior BP: 154/89 (12/09/2009) Labs Reviewed: C hol: 259 (01/10/2009) HDL: 51 (01/10/2009) LDL: 143 (01/10/2009) T (01/10/2009) Raghav Fish MD follow up: T he following medications were removed from the medication list: Crestor Tabs (Rosuvastatin calcium tabs) ..... 1 tablet by mouth daily BP today: 101/51 Prior BP: 154/89 (12/09/2009) C HOL: 259 (01/10/2009) LDL: 143 (01/10/2009) HDL: 51 (01/10/2009) T (01/10/2009) Raghav Fish MD follow up: H er updated medication list for this problem includes: Levothroid 100 Mcg Tabs (Levothyroxine sodium) ..... One tab. daily Orders: E KG ([id number]) Labs Reviewed: T SH: 0.40 (01/10/2009) C hol: 259 (01/10/2009) HDL: 51 (01/10/2009) LDL: 143 (01/10/2009) T (01/10/2009) Raghav Fish MD follow up: H er updated medication list for this problem includes: Metoprolol Tartrate 50 Mg Tabs (Metoprolol tartrate) ..... One tab twice daily Isosorbide Mononitrate Cr 30 Mg Tb24 (Isosorbide mononitrate) ..... One tab. daily Aspirin 81 Mg Tabs (Aspirin) ..... One tab. daily Nitroquick Subl (Nitroglycerin subl) ..... 0.4mg underneath the tongu as needed BP today: 101/51 Prior BP: 154/89 (12/09/2009) N uclear Stress Findings: EF - 54%. S ubmaximal stress test. N o EKG changes diagnostic for ischemia. N ormal myocardial perfusion without infarct or ischemia. (02/28/2007) C HOL: 259 (01/10/2009) LDL: 143 (01/10/2009) HDL: 51 (01/10/2009) T (01/10/2009) H gb: 13.3 (01/10/2009) HCT: 39.0 (01/10/2009) WBC: 6.7 (01/10/2009) T SH: 0.40 (01/10/2009) Echocardiogram: EF - 55%. N ormal LV systolic function. Normal E/E at 9. T race aortic regurgitation. Aortic valve sclerosis without stenosis. T race mitral regurgitation. Trace tricuspid regurgitation. There is non-specific thickening of the tricuspid valve. N ormal pericardium with no significant pericardial effusion. [facility] (12/03/2008) Raghav Fish MD Yearly Follow-up: H er updated medication list for this problem includes: Metoprolol Tartrate 50 Mg Tabs (Metoprolol tartrate) ..... One tab twice daily Avapro 150 Mg Tabs (Irbesartan) ..... One tab. daily Aspirin 81 Mg Tabs (Aspirin) ..... One tab. daily Avalide 300-12.5 Mg Tabs (Irbesartan-hydrochlorothiazide) ..... 1/2 tablet daily BP today: 154/89 P rior BP: 148/82 (12/03/2008) Labs Reviewed: C hol: 259 (01/10/2009) HDL: 51 (01/10/2009) LDL: 143 (01/10/2009) T (01/10/2009) Raghav Fish MD Yearly Follow-up: H er updated medication list for this problem includes: Levothroid 100 Mcg Tabs (Levothyroxine sodium) ..... One tab. daily Labs Reviewed: T SH: 0.40 (01/10/2009) C hol: 259 (01/10/2009) HDL: 51 (01/10/2009) LDL: 143 (01/10/2009) T (01/10/2009) Raghav Fish MD Yearly Follow-up: H er updated medication list for this problem includes: Metoprolol Tartrate 50 Mg Tabs (Metoprolol tartrate) ..... One tab twice daily Isosorbide Mononitrate Cr 30 Mg Tb24 (Isosorbide mononitrate) ..... One tab. daily Aspirin 81 Mg Tabs (Aspirin) ..... One tab. daily Nitroquick Subl (Nitroglycerin subl) ..... 0.4mg underneath the tongu as needed BP today: 154/89 Prior BP: 148/82 (12/03/2008) N uclear Stress Findings: EF - 54%. S ubmaximal stress test. N o EKG changes diagnostic for ischemia. N ormal myocardial perfusion without infarct or ischemia. (02/28/2007) C HOL: 259 (01/10/2009) LDL: 143 (01/10/2009) HDL: 51 (01/10/2009) T (01/10/2009) H gb: 13.3 (01/10/2009) HCT: 39.0 (01/10/2009) WBC: 6.7 (01/10/2009) TSH: 0.40 (01/10/2009) Echocardiogram: EF - 55%. N ormal LV systolic function. Normal E/E at 9. T race aortic regurgitation. Aortic valve sclerosis without stenosis. T race mitral regurgitation. T race tricuspid regurgitation. There is non-specific thickening of the tricuspid valve. N ormal pericardium with no significant pericardial effusion. [facility] (12/03/2008) Raghav Fish MD 6 month follow-up [facility] Echo: H er updated medication list for this problem includes: Metoprolol Tartrate 50 Mg Tabs (Metoprolol tartrate) ..... One tab twice daily Avapro 150 Mg Tabs (Irbesartan) ..... One tab. daily Aspirin 81 Mg Tabs (Aspirin) ..... One tab. daily BP today: 148/82 P rior BP: 143/69 (06/03/2008) Raghav Fish MD 6 month follow-up [facility] Echo: H er updated medication list for this problem includes: Lipitor 20 Mg Tabs (Atorvastatin calcium) ..... 1 tablet by mouth daily BP today: 148/82 Prior BP: 143/69 (06/03/2008) Raghav Fish MD 6 month follow-up [facility] Echo: H er updated medication list for this problem includes: Metoprolol Tartrate 50 Mg Tabs (Metoprolol tartrate) ..... One tab twice daily Isosorbide Mononitrate Cr 30 Mg Tb24 (Isosorbide mononitrate) ..... One tab. daily Aspirin 81 Mg Tabs (Aspirin) ..... One tab. daily Nitroquick Subl (Nitroglycerin subl) ..... 0.4mg underneath the tongu as needed B P today: 148/82 Prior BP: 143/69 (06/03/2008) N uclear Stress Findings: EF - 54%. S ubmaximal stress test. N o EKG changes diagnostic for ischemia. N ormal myocardial perfusion without infarct or ischemia. (02/28/2007) E chocardiogram: EF - 60%. T race mitral regurgitation. T race tricuspid regurgitation. (09/27/2006) Raghav Fish MD 6 month follow-up wi th Echo: H er updated medication list for this problem includes: Levothroid 100 Mcg Tabs (Levothyroxine sodium) ..... One tab. daily Raghav Fish MD yearly follow-up: H er updated medication list for this problem includes: Levothroid 100 Mcg Tabs (Levothyroxine sodium) ..... One tab. daily Raghav Fish MD yearly follow-up: H er updated medication list for this problem includes: Metoprolol Tartrate 50 Mg Tabs (Metoprolol tartrate) ..... One tab twice daily Isosorbide Mononitrate Cr 30 Mg Tb24 (Isosorbide mononitrate) ..... One tab. daily Aspirin 81 Mg Tabs (Aspirin) ..... One tab. daily Nitroquick Subl (Nitroglycerin subl) ..... 0.4mg underneath the tongu as needed BP today: 143/69 Prior BP: / () N uclear Stress Findings: EF - 54%. S ubmaximal stress test. N o EKG changes diagnostic for ischemia. N ormal myocardial perfusion without infarct or ischemia. (02/28/2007) E chocardiogram: EF - 60%. T race mitral regurgitation. T race tricuspid regurgitation. (09/27/2006) Raghav Fish MD yearly follow-up: H er updated medication list for this problem includes: Lipitor 40 Mg Tabs (Atorvastatin calcium) ..... One tab. daily BP today: 143/69 Prior BP: / () Raghav Fish MD yearly follow-up: H er updated medication list for this problem includes: Metoprolol Tartrate 50 Mg Tabs (Metoprolol tartrate) ..... One tab twice daily Avapro 150 Mg Tabs (Irbesartan) ..... One tab. daily Aspirin 81 Mg Tabs (Aspirin) ..... One tab. daily BP today: 143/69 Raghav Fish MD yearly follow-up: H er updated medication list for this problem includes: Metoprolol Tartrate 50 Mg Tabs (Metoprolol tartrate) ..... One tab twice daily Isosorbide Mononitrate Cr 30 Mg Tb24 (Isosorbide mononitrate) ..... One tab. daily Lipitor 40 Mg Tabs (Atorvastatin calcium) ..... One tab. daily Aspirin 81 Mg Tabs (Aspirin) ..... One tab. daily Nitroquick Subl (Nitroglycerin subl) ..... 0.4mg underneath the tongu as needed BP today: 143/69 Prior BP: / () N uclear Stress Findings: EF - 54%. S ubmaximal stress test. N o EKG changes diagnostic for ischemia. N ormal myocardial perfusion without infarct or ischemia. (02/28/2007) Raghav Fish MD HISTORY OF PROCEDURES Procedure Date Procedure Name Provider Procedure Notes S tatus EKG Raghav Fish MD completed EKG Raghav Fish MD completed
[2024-10-12 17:42] LABS: Anion Gap 5 mmol/L (4-12); Blood Urea Nitrogen 31 mg/dL (7-18); Calcium 9.5 mg/dL (8.5-10.1); Carbon Dioxide 32 mmol/L (21-32); Chloride 98 mmol/L (98-108); Estimated Glomerular Filt Rate 57; Glucose 121 mg/dL (70-99); Osmolality Calculated 287 mOsm/kg (285-295); Potassium 5.2 mmol/L (3.5-5.1); Sodium 135 mmol/L (136-145)
== END 2024-10-12 17:22 | disposition home or self-care (01) ==
LOC: CHSLAB 17:24
PROVIDERS: PCP Internal Medicine; Visit Provider Family Medicine
DX: I11.0 Hypertensive heart disease with heart failure (principal)
CPT/HCPCS: 36415; 80048

== ENCOUNTER 2025-01-20 10:32 | Inpatient (IN) | payer MEDICARE, SELFPAY ==
[2025-01-20] VITALS (17 sets, daily range): BP systolic 151–178; BP diastolic 64–90; PULSE 84–98; RESP 18–30; TEMP 36.7–37.1; O2SAT 93–97; BMI 32.0
--- NOTE | ~2025-01-20 | XR_ITS ---
Portable chest x-ray Comparison: 01/27/2018 Clinical History: Shortness of breath Findings: Lungs are clear, without focal consolidation or pleural effusion. Cardiomediastinal silho uette is stable. Bones and soft tissues are unremarkable. Neurostimulator device present. Impression: Clear lungs. Reviewed, dictated and finalized at location . Impression: Clear lungs.
--- NOTE | ~2025-01-20 | XR_ITS ---
EXAMINATION: XR chest 1V portable Exam Date/Time: 01/21/2025 18:10 CDT HISTORY: Follow up shortness of breath Comparison: 01/20/2025; CT lumbar spine 01/27/2018. RESULT: Lines, tubes, and devices: Stimulator leads project over the thoracic spine. G-tube over the stomach . Lungs and pleura: Mild rotation. No focal consolidation, pleural effusion, or pneumothorax. Cardiomediastinal silhouette: Stable. Posteromedial left diaphragmatic hernia, fat-containing in the prior CT lumbar spine Other: No acute osseous or upper abdominal finding. IMPRESSION: No acute cardiopulmonary process. Reviewed, dictated and finalized at location K.
--- NOTE | ~2025-01-20 | CT_ITS ---
EXAMINATION: CTA chest PE protocol DATE: 01/22/2025 17:35 CDT INDICATION: Hypoxia TECHNIQUE: Computed tomographic angiography (CTA) of the chest was performed with 100 mL Omnipaque-35 0 intravenous contrast. The dose-length product was 465.44 mGy-cm. Maximum intensity projection 3D-re constructions of the aorta and other arteries were constructed by the technologist on a separate work station. COMPARISON: None. FINDINGS/OBSERVATIONS: PULMONARY ARTERIES: No filling defect is identified within the main or proximal pulmonary artery. The main pulmonary artery is not enlarged. THORACIC AORTA: No aneurysmal dilatation or dissection is present. The great vessels are intact LUNGS: Panlobular emphysematous disease is identified. Examination is somewhat limited for the evalua tion of discrete pulmonary nodules secondary to respiratory motion artifact. MEDIASTINUM: No morphologically suspicious or pathologically enlarged lymph nodes are identified with in the mediastinum or bilateral axilla. BONES OF THE CHEST: No acute fracture. No significant degenerative disease. No lytic or blastic lesions. HEART: The heart is of normal size, without pericardial effusion. IMPRESSION: No pulmonary embolus. No thoracic aortic dissection. Panlobular emphysematous disease, as detailed above. Reviewed, dictated and finalized at location A.
--- NOTE | 2025-01-20 10:42 | ECG_ITS ---
Test Date: 2025-01-20 10:46:51 Measurements Intervals [place] Rate: 89 P: 248 NV: 362 QRS: -7 QRSD: 90 T: 69 QT: 325 QTc: 397 Interpretive Statements Significant baseline artifact precludes accurate interpretation of underlying rhythm SEPTAL MYOCARDIAL INFARCTION , OF INDETERMINATE AGE [40+ ms Q WAVE IN V1/V2] No previous ECG available for comparison Electronically Signed On 01-21-2025 10:43:37 CDT by Joseph Nielsen M.D.
--- NOTE | 2025-01-20 10:52 | ED_ITS ---
HPI - General Adult General Chief complaint: Shortness of Breath/Dyspnea Stated complaint: dyspnea Time Seen by Provider: 01/20/25 10:43 History of Present Illness HPI narrative: 89-year-old female present to the emergency department for evaluation for approximately 3 days of worsening shortness of breath. Patient does have a prior history of smoking. Patient does have audible wheeze exam. Patient is A&O x 2 which is her baseline. Patient is present with her family members. Patient denies any associated chest pain. Patient denies any falls or injuries. Related Data Home Medications ?Medication ?Instructions ?Recorded ?Confirmed ?Last Taken ?Type acetaminophen 500 mg tablet 500 mg PO ONCE PRN pain 01/20/25 01/20/25 01/19/25 History (Tylenol Extra Strength) albuterol sulfate 90 mcg/actuation 1 puff inhalation Q6H PRN 01/20/25 01/20/25 01/20/25 History aerosol inhaler shortness of breath or wheezing ascorbic acid (vitamin C) 1,000 mg 1,000 mg PO DAILY 01/20/25 01/20/25 01/19/25 History capsule aspirin 81 mg tablet,delayed 81 mg PO DAILY 01/20/25 01/20/25 01/19/25 History release (Adult Aspirin Regimen) atorvastatin 80 mg tablet 80 mg PO DAILY 01/20/25 01/20/25 01/20/25 History budesonide 160 mcg-glycopyr 9 2 inh inhalation BID 01/20/25 01/20/25 01/19/25 History mcg-formot 4.8 mcg/actuation HFA inhaler (Breztri Aerosphere) calcium carbonate (Calcium 600) 600 mg PO DAILY 01/20/25 01/20/25 01/19/25 History calcium polycarbophil 625 mg 625 mg PO DAILY 01/20/25 01/20/25 01/19/25 History tablet (Fiber (calcium polycarbophil)) docusate sodium 100 mg capsule 100 mg PO DAILY PRN constipation 01/20/25 01/20/25 01/19/25 History (Stool Softener) ipratropium 0.5 mg-albuterol 3 mg 1.5 ml inhalation BID 01/20/25 01/20/25 01/19/25 History (2.5 mg base)/3 mL nebulization soln isosorbide mononitrate 60 mg 60 mg PO DAILY 01/20/25 01/20/25 01/19/25 History tablet,extended release 24 hr levothyroxine 100 mcg tablet 100 mcg PO DAILY 01/20/25 01/20/25 01/19/25 History lisinopril 10 mg tablet 20 mg PO DAILY 01/20/25 01/20/25 01/19/25 History loratadine 10 mg tablet 10 mg PO DAILY 01/20/25 01/20/25 01/19/25 History megestrol 40 mg tablet 40 mg PO TID 01/20/25 01/20/25 01/19/25 History metoprolol succinate 25 mg 25 mg PO DAILY 01/20/25 01/20/25 01/19/25 History tablet,extended release 24 hr montelukast 10 mg tablet 10 mg PO DAILY 01/20/25 01/20/25 01/19/25 History mv-mn-iron fum-folic acid-omega cap PO DAILY 01/20/25 01/19/25 History 3,6,9 no.3 18 mg-600 mcg capsule omeprazole 20 mg capsule,delayed 20 mg PO DAILY 01/20/25 01/20/25 01/19/25 History release pregabalin 100 mg capsule 200 mg PO BID 01/20/25 01/20/25 01/19/25 History quetiapine 25 mg tablet 25 mg PO HS 01/20/25 01/20/25 01/19/25 History sodium chloride 1,000 mg soluble 40 mg PO DAILY 01/20/25 01/20/25 01/19/25 History tablet vitamin B12 0.5 mg-folic acid 1 mg 1 tablet PO DAILY 01/20/25 01/20/25 01/19/25 History tablet (Foltrate) Allergies Allergy/AdvReac Type Severity Reaction Status Date / Time codeine Allergy Unknown worsens Verified 02/01/19 14:45 pain donepezil Allergy Unknown sleeplessne Verified 02/01/19 14:46 ss memantine Allergy Unknown sleeplessne Verified 02/01/19 14:46 ss Opioids - Morphine Analogues Allergy Unknown unconscious Verified 02/01/19 14:45 ness Review of Systems 2 Review of Systems: All systems reviewed & are unremarkable except as noted in HPI and below PMFSH Family History Family History Other Depression Diabetes mellitus Family history of arthritis Family history of cardiovascular disease Family history of mental disorder Family history of thyroid disease Hypertension Social History Social History Smoking packs per day: 2 Smoking cigarettes per day: 40.0 Smoking status: Former smoker Tobacco type: cigarettes Smoking end date: 07/04/94 Alcohol intake: never Substance use: never Substance use type: does not use Do You Feel Safe in your Home?: Yes Lack of Transportation: No Lack of Food: Never True Current Housing: I Have Housing Concerned About Future Housing: No Difficulty Paying Gas/Electric Bills: No Difficulty Paying for Meds: No Currently Unemployed: No Education: High School Diploma/GED Difficulty w/ Childcare or Family Care: No Spiritual care concerns: No Exam 2 Narrative: APPEARANCE: Well appearing, no pain, no distress, well-nourished. HEAD: normocephalic, atraumatic. EYES: PERRLA/EOMI, conjunctivae clear. NOSE: Normal no drainage EARS:TMS clear with good light reflex. THROAT: Pharynx clear, no exudate. NECK: Supple. No adenopathy, no masses. RESPIRATORY: Expiratory wheeze CARDIOVASCULAR: Regular rate and rhythm without murmurs rubs or gallops. ABDOMINAL: Soft, nontender, nondistended, normal bowel sounds MUSCULOSKELETAL: Moves all extremities. Strength/ROM intact, No edema, No calf tenderness. NEURO: Alert. Cranial nerves II through XII intact. Good gait. Good coordination SKIN: Warm, dry. Normal Color Course Vital Signs Vital signs: Vital Signs Temperature 98.7 F 01/20/25 10:33 Pulse Rate 88 01/20/25 10:33 Respiratory Rate 24 H 01/20/25 10:33 Blood Pressure 151/75 H 01/20/25 10:33 Pulse Oximetry 96 01/20/25 10:33 Oxygen Delivery Room Air 01/20/25 10:33 Temperature 98.7 F 01/20/25 10:33 Pulse Rate 92 01/20/25 18:28 Respiratory Rate 28 H 01/20/25 16:14 Blood Pressure 158/79 H 01/20/25 16:14 Pulse Oximetry 95 01/20/25 18:28 Oxygen Delivery Room Air 01/20/25 18:28 Oxygen Flow Rate 2 01/20/25 10:43 Medical Decision Making MDM Narrative Medical decision making narrative: 89-year-old female present to the emergency department for evaluation for worsening shortness of breath. Patient does have history of COPD but is not on oxygen at home. Patient has been exposed to viral illnesses at home. Patient did have a recent course of steroids but continues to worsen. Patient was treated with 2 x 5 mg nebulized albuterol treatments and does have some residual wheeze. Patient does still have increased work of breathing. Patient does not have an O2 requirement. Patient is currently afebrile but does have a leukocytosis of 13.1. CMP has no acute abnormalities. Patient was negative for influenza RSV and for COVID. I did recommend admission to the family is due to the patient artery having outpatient steroids and continue to worsen. Patient was started on antibiotics in the emergency department for concern for COPD exacerbation and underlying pneumonia. Differential Diagnosis Differential Diagnosis: Pneumonia, pneumothorax, COPD, COVID, RSV, and influenza Vital Signs Vital Signs: Vital Signs Temperature 98.7 F 01/20/25 10:33 Pulse Rate 88 01/20/25 10:33 Respiratory Rate 24 H 01/20/25 10:33 Blood Pressure 151/75 H 01/20/25 10:33 Pulse Oximetry 96 01/20/25 10:33 Oxygen Delivery Room Air 01/20/25 10:33 Temperature 98.7 F 01/20/25 10:33 Pulse Rate 92 01/20/25 18:28 Respiratory Rate 28 H 01/20/25 16:14 Blood Pressure 158/79 H 01/20/25 16:14 Pulse Oximetry 95 01/20/25 18:28 Oxygen Delivery Room Air 01/20/25 18:28 Oxygen Flow Rate 2 01/20/25 10:43 Lab Data Lab results reviewed: Yes I reviewed the patient's lab results. 01/20/25 11:34 01/20/25 11:34 Labs: Lab Results 01/20/25 01/20/25 Range/Units 10:58 11:34 WBC 13.1 H (4.5-10.0) K/mm3 RBC 4.56 (4.2-5.4) M/mm3 Hgb 12.7 (12.0-15.0) g/dL Hct 41.4 (37.0-47.0) % MCV 90.8 (80-100) fl MCH 27.9 (26-34) pg MCHC 30.7 L (32-36) g/dl RDW 15.4 H (11.5-14.5) % Plt Count 244 (150-375) k/mm3 MPV 10.5 H (7.4-10.4) fl Immature Gran % (Auto) 0.4 (0-0.5) % Neut % (Auto) 71.6 (45.5-73.1) % Lymph % (Auto) 20.1 (18.3-44.2) % [place] % (Auto) 5.4 (2.6-8.5) % Eos % (Auto) 2.1 (0-4.4) % Baso % (Auto) 0.4 (0.2-1.2) % Lymph # (Auto) 2.63 (0.9-3.2) K/mm3 [place] # (Auto) 0.7 H (0.1-0.6) K/mm3 Eos # (Auto) 0.3 (0-0.3) K/mm3 Baso # (Auto) 0.1 (0.0-0.1) K/mm3 Abs Immat Gran (auto) 0.05 H (0.00-0.031) K/mm3 Absolute Neuts (auto) 9.4 H (1.3-6.7) K/mm3 Absolute Nucleated RBC 0.000 (0.0-0.012) K/mm3 Nucleated RBC % 0.0 (0.0-0.2) % Sodium 137 (137-145) mmol/L Potassium 4.1 (3.4-5.0) mmol/L Chloride 102 (98-107) mmol/L Carbon Dioxide 23 (22-30) mmol/L Anion Gap 12 (4-12) mmol/L BUN 23 H (7-17) mg/dL Creatinine 0.75 (0.7-1.0) mg/dL Estim Creat Clear Calc Not Reportable Estimated GFR > 60 (59 - ) Glucose 104 (65-110) mg/dL Calcium 9.2 (8.4-10.2) mg/dL Total Bilirubin 0.3 (0.2-1.3) mg/dL AST 29 (14-36) U/L ALT 26 (6-35) U/L Alkaline Phosphatase 74 (38-126) U/L NT-Pro-B Natriuret Pep Cancelled 81 Total Protein 7.4 (6.3-8.2) g/dL Albumin 4.1 (3.5-5.1) g/dL Influenza A (RT-PCR) Negative (Negative) Influenza B (RT-PCR) Negative (Negative) RSV (RT-PCR) Negative (Negative) SARS-CoV-2 RNA (RT-PCR) Negative (Negative) Imaging Data Radiologist's impression: Impressions Chest X-Ray 01/20/25 10:59 Impression: Clear lungs. Discharge Plan Discharge Clinical Impression: COPD exacerbation, Pneumonia, Acute dyspnea Patient Disposition: Still a Patient Condition: Serious
--- OUTSIDE RECORDS SUMMARY | 2025-01-20 11:00 | XMS_ITS | Encounter Summary ---
Author Organization [facility] Address [address] [place] [address] Care Team Providers Care Stamp Analyst Name Role Phone Felipe Rodriguez MD Primary Care Provider + Encounter Details Date Type Department Care Team (Late st Contact Info) Description 01/24/2020 Lab Requisition [facility] [address] [place] [address] Kassandra Reyes MD [address] [facility] [address] [place] [address] Social History Tobacco Use Types Packs/Day Years Used Date Smoking Tobacco: Never Assessed Comments Unknown Sex and Gender Information Value Date Recorded Sex Assigned at Not on file Legal Sex Female 2:38 PM CDT Gender Identity Not on file Sexual Orientation Not on file documented as of this encounter Plan of Treatment Not on file documented as of this encounter Procedures Procedure Name Priority Date/Time Associated Diagnosis Comments DERMATOPATHOLOGY Routine 01/23/2020 12:0 0 AM CDT documented in this encounter Results * DERMATOPATHOLOGY (01/23/2020 12:00 AM CDT) Case Report Dermatopathology Report Case: [id number] Authorizing Provider: Kassandra Reyes MD Collected: 01/23/2020 12:00 AM Ordering Location: [facility] Received: 01/24/2020 12:22 PM [...] (D22.9) (see microscopic description) 0 5:15 PM CDT DERMATOPATHOLOGY LABORATORY at 1715 CDT Clinical History A: Askov papule; R/O HAK vs SCC. B: Brown papule; irreg; R/O ISK vs MM. 0 5:15 PM CDT DERMATOPATHOLOGY LABORATORY Gross Description Specimen A: Received is one formalin filled container labeled with the patient's name and designated right lower eyelid. The specimen consists of a shave measuring 2h6y6lb. Jar 0. Specimen B: Received is one formalin filled container labeled with the patient's name and designated right cheek. The specimen consists of a shave measuring 9l2j9mi. Jar 0. 0 5:15 PM CDT DERMATOPATHOLOGY LABORATORY Microscopic Description Specimen A. SKIN, [...] were obtained and reviewed. 0 5:15 PM CDT DERMATOPATHOLOGY LABORATORY Disclaimer An external and internal positive and negative controls are appropriate for the histochemical, immunohistochemical and immunofluorescence stain(s) in this case (if any), except where stated explicitly. The performance characteristics of the stain(s) cited in this report were developed and its performance characteristic determined by the Dermatopathology Laboratory at [facility], directed by Dr. Dayanna Ewing. These tests need not be, and therefore are not, approved by the [place] Food and Drug Administration. The tests are used for clinical purposes. Billing Codes Specimen Charges Stain Charges 12041 33016 1 1 30365 51204 1 1 0 5:15 PM CDT DERMATOPATHOLOGY LABORATORY Embedded Images 0 5:15 PM CDT DERMATOPATHOLOGY LABORATORY Pathology/Cytology TISSUE SPECIMEN FROM SKIN / Unknown 01/23/2020 01/24/2020 12:22 PM CDT Miscellaneous samples (specimen) TISSUE SPECIMEN FROM SKIN / Unknown 01/23/2020 01/24/2020 12:22 PM CDT us Kassandra Reyes MD LAB - PATHOLOGY/CYTOLOGY ORD ERABLES Final Result DERMATOPATHOLOGY LABORATORY [facility] - Department of Dermatology [facility]/[address] [phone] documented in this encounter Visit Diagnoses Not on filedocumented in this encounter Care Teams Stamp Analyst Relationship Specialty Start Date End Date Felipe Rodriguez MD PCP - General 01/31/18 documented as of this encounter
--- OUTSIDE RECORDS SUMMARY | 2025-01-20 11:00 | XMS_ITS | Continuity of Care Document ---
Author Organization [facility] Address [address] [place] [address] [place] [address] Phone Care Team Providers Care Ski Maker Name Role Phone Artem Salmeron Unavailable Unavailable Advance Directives Directive Yes / No Effective Date File Name No Information Encounters Encounter Description Practice Location Reason(s) For Visit Diagnoses Date Provider Providers Copied on Encounter [facility], [address], [place], [place], [id number], [place] tel:[phone] [facility] No Information Faviola Mcgill. [address] [place], [place], [facility], [place]. tel:[phone] Referring Provider: Aminata Peters, [address] [place] [address] [place], [place], [facility]. tel:[phone] Family History Family Member Type Diagnosis Age [...]
--- OUTSIDE RECORDS SUMMARY | 2025-01-20 11:00 | XMS_ITS | Clinical Summary ---
Author Organization [facility] 2 Address [address] [place] [address] Care Team Providers Care Value Advisor Name Role Phone Felipe Rodriguez MD Primary Care Provider Federico Jay MD Unavailable [phone] Allergies Active Allergy Reactions Criticality Noted Date [...] (08/18/2018): Added automatically from request for surgery [id number] Abnormal findings on diagnostic imaging of diges tive system 08/18/2018 Overview (08/18/2018): Added automatically from request for surgery [id number] Paraparesis of both lower limbs 02/22/2018 Sensory loss 02/22/2018 Neuropathic pain 02/22/2018 Polypharmacy 02/22/2018 Sacroiliitis 10/07/2017 Lumbar radiculopathy 10/07/2017 Spondylolisthesis 08/29/2017 Spinal stenosis of lumbar region 08/29/2017 Disorder of bile duct 08/03/2017 Surgical History Surgery Date Site/Laterality Comments [place] ERCP REMOVE CALCULI/DEBRI S BILIARY/PANCREAS DUCT [place] CORRJ HLX VLGS BNCTY SESM DC RESCJ [...] on file Legal Sex Female 3:21 AM SIZE STAMPER Gender Identity Not on file Sexual Orientation Not on file Obstetrics History Last Filed Vital Signs Vital Sign Reading Time Taken Comments Blood Pressure 170/77 09/14/2019 2:40 PM CDT Pulse 71 09/14/2019 2:40 PM CDT Temperature 36.7 C (98 F) 09/14/2019 2:40 PM CDT Respiratory Rate 11 08/30/2018 2:41 PM SIZE STAMPER Oxygen Saturation 99% 08/30/2018 2:41 PM SIZE STAMPER Inhaled Oxygen Concentration - - Weight 64.6 kg (142 lb 6.4 oz) 09/14/2019 2:40 P M CDT Height 149.9 cm (4' 11) 08/30/2018 1:12 PM SIZE STAMPER Body Mass Index 28.76 08/30/2018 1:12 PM SIZE STAMPER Plan of Treatment Not on file Medical Devices Implanted Type Area Program Director Cable Television Device Identifier Shelf Expiration Date Model / Serial / Lot Spinal Cord Stimulator- Implanted: by Pasha Sanchez MD (Quantity not on file) Spinal Cord Stimulator Left: Back Medtronic Neuro [id number] / [id number] / Description:Nerve stimulator for leg pain - confirmed Full Body eligible Pt knows to bring external controller and is able to put into MRI mode. Hardware Spine Lumbar Insurance [facility] Address: [address] [address] [place] [id number] [facility] Address: [address] MDCR HMO REF [facility] Address: [address] [address] [place] [address] Advance Directives For more information, please contact: [phone] Documents on File Type Date Recorded Patient New Car Sales Manager Expl anation ADVANCE DIRECTIVE 11/26/2017 12:00 AM ADVANCE DIRECTIVE 09/14/2017 11:22 PM ADVANCE DIRECTIVE 08/15/2017 12:00 AM * Full Code (Latest Code Status on File) Date Activated Date Inactivated Comments 08/30/2018 12:47 PM 08/30/2018 8:48 PM Care Teams Value Advisor Relationship Specialty [place] [address] [place] [address] PCP - General 09/22/17 [place] [address] [place] [address] Referring Physician Gastroenterology 09/04/18
--- OUTSIDE RECORDS SUMMARY | 2025-01-20 11:00 | XMS_ITS | Clinical Summary ---
Author Organization [facility] Address [address] [place] [address] Care Team Providers Care Station Cook Name Role Phone Felipe Rodriguez MD Primary Care Provider + Source Comments [facility],non-owned Affiliates and Associated Physician Practices is amultiple site organization consisting of ambulatory clinics and hospital sitesin [place], [place], [place] and [place]. This disclosure is being madepursuant to the Care Everywhere program and may not contain all information available regarding this patient. Last updated 18.[facility] Social History Tobacco Use Types Packs/Day Years [...] season) 2024 DEPRESSION SCREENING 07/04/2024 INFLUENZA VACCINE (#1) 2025 HEPATITIS B VACCINE Aged Out No [...] on patient's age to complete this topic Insurance Care Teams Station Cook Relationship Specialty Start Date End Date Felipe Rodriguez MD PCP - General 01/31/18
--- OUTSIDE RECORDS SUMMARY | 2025-01-20 11:00 | XMS_ITS | Encounter Summary ---
Author Organization [facility] Address [address] [place] [address] Phone Care Team Providers Care Coding Machine Operator Name Role Phone Felipe Rodriguez MD Primary Care Provider Federico Jay MD Unavailable [phone] Encounter Details Date Type Department Care Team (Latest Contact Info) Description 10/20/2017 Orders Only [facility] CONVERSION Scanning, Provider Social History Tobacco Use Types Packs/Day Years Used Date Smoking Tobacco: Former Comments Unknown Sex and Gender Information Value Date Recorded Sex Assigned at Not on file Legal Sex Female 3:21 AM TOMBSTONE ERECTOR HELPER Gender Identity Not on file Sexual Orientation [...] on filedocumented in this encounter Care Teams Coding Machine Operator Relationship Specialty [place] [address] [place] [address] PCP - General 09/22/17 [place] [address] [place] [address] Referring Physician Gastroenterology 09/04/18 documented as of this encounter
--- OUTSIDE RECORDS SUMMARY | 2025-01-20 11:01 | XMS_ITS | Referral Summary ---
Author Organization [facility] Medical [facility] 2 Address [address] [facility] [place] [address] Care Team Providers Care Sail Maker Name Role Phone Felipe Rodriguez MD Primary Care Provider Federico Jay MD Unavailable [phone] Allergies Active Allergy Reactions Criticality Noted Date [...] (08/18/2018): Added automatically from request for surgery [id number] Abnormal findings on diagnostic imaging of diges tive system 08/18/2018 Overview (08/18/2018): Added automatically from request for surgery [id number] Paraparesis of both lower limbs 02/22/2018 Sensory [...] on file Legal Sex Female 3:21 AM CHARACTER ACTRESS Gender Identity Not on file Sexual Orientation Not on file Last Filed Vital Signs Vital Sign Reading Time Taken Comments Blood Pressure 170/77 09/14/2019 2:40 PM CDT Pulse 71 09/14/2019 2:40 PM CDT Temperature 36.7 C (98 F) 09/14/2019 2:40 PM CDT Respiratory Rate 11 08/30/2018 2:41 PM CHARACTER ACTRESS Oxygen Saturation 99% 08/30/2018 2:41 PM CHARACTER ACTRESS Inhaled Oxygen Concentration - - Weight 64.6 kg (142 lb 6.4 oz) 09/14/2019 2:40 P M CDT Height 149.9 cm (4' 11) 08/30/2018 1:12 PM CHARACTER ACTRESS Body Mass Index 28.76 08/30/2018 1:12 PM CHARACTER ACTRESS Plan of Treatment Not on file Medical Devices Implanted Type Area Featheredger And Reducer Machine Device Identifier Shelf Expiration Date Model / Serial / Lot Spinal Cord Stimulator- Implanted: by Pasha Sanchez MD (Quantity not on file) Spinal Cord Stimulator Left: Back [employer] Neuro [id number] / [id number] H / Description:Nerve stimulator for leg pain - confirmed Full Body eligible Pt knows to bring external controller and is able to put into MRI mode. Hardware Spine Lumbar Insurance [facility] MDCR HMO REF Advance Directives For more information, please contact: [phone] Documents on File Type Date Recorded Patient Lead Nurse Expl anation ADVANCE DIRECTIVE 11/26/2017 12:00 AM ADVANCE DIRECTIVE 09/14/2017 11:22 PM ADVANCE DIRECTIVE 08/15/2017 12:00 AM * Full Code (Latest Code Status on File) Date Activated Date Inactivated Comments 08/30/2018 12:47 PM 08/30/2018 8:48 PM Care Teams Sail Maker Relationship Specialty [place] [address] [address] [place] [address] PCP - General 09/22/17 [place] [address] [place] [address] Referring Physician Gastroenterology 09/04/18
[2025-01-20] MEDS: ALBUTEROL SULFATE NEB 2.5 MG/3 ML INH 5 MG INHALATION ×2 (11:04→12:23)
[2025-01-20 11:43] LABS: Hematocrit 41.4 % (37.0-47.0); Hemoglobin 12.7 g/dL (12.0-15.0); Immature Granulocyte Percent A 0.4 % (0-0.5); Lymphocytes Absolute Auto 2.63 K/mm3 (0.9-3.2); Mean Corpuscular HGB Conc 30.7 g/dl (32-36); Mean Corpuscular Hemoglobin 27.9 pg (26-34); Mean Corpuscular Volume 90.8 fl (80-100); Nucleated Red Blood Cells Absolute Auto 0.000 K/mm3 (0.0-0.012); Nucleated Red Blood Cells Perc 0.0 % (0.0-0.2); Platelet Count Result 244 k/mm3 (150-375); Red Blood Count 4.56 M/mm3 (4.2-5.4); White Blood Count 13.1 K/mm3 (4.5-10.0)
[2025-01-20 11:51] LABS: Influenza A QL RT-PCR Negative (Negative); Influenza B QL RT-PCR Negative (Negative); RSV RNA, RT-PCR Negative (Negative); SARS-CoV-2 RNA PCR Negative (Negative)
[2025-01-20 11:55] LABS: Alanine Aminotransferase 26 U/L (6-35); Albumin Level 4.1 g/dL (3.5-5.1); Alkaline Phosphatase 74 U/L (38-126); Anion Gap 12 mmol/L (4-12); Aspartate Amino Transferase 29 U/L (14-36); Bilirubin,Total 0.3 mg/dL (0.2-1.3); Blood Urea Nitrogen 23 mg/dL (7-17); Calcium 9.2 mg/dL (8.4-10.2); Carbon Dioxide 23 mmol/L (22-30); Chloride 102 mmol/L (98-107); Estimated Glomerular Filt Rate > 60; Glucose 104 mg/dL (65-110); Potassium 4.1 mmol/L (3.4-5.0); Sodium 137 mmol/L (137-145); Total Protein 7.4 g/dL (6.3-8.2)
[2025-01-20 12:02] LABS: NT Pro B Type Natriuretic Pept 81 pg/mL (19.9-100)
[2025-01-20] MEDS: AZITHROMYCIN 250 MG TABLET 500 MG PO (12:15)
--- NOTE | 2025-01-20 12:21 | PC.NURSE ---
Pt appears more comfortably at this time with work of breathing improved. She does still endorse shortness of breath being present. Saturating well on 2L. BP 170s systolic at this time without pt complaint of headache or chest pain. NAD noted.
--- NOTE | 2025-01-20 12:29 | PC.NURSE ---
Pt's daughter reports pt did not take her morning blood pressure medication. Dr. Gonsalves made aware of family request for BP meds.
--- NOTE | 2025-01-20 12:44 | PC.NURSE ---
Lisinopril administered per SEP. Pharmacy contacted to send Metoprolol dosage.
[2025-01-20] MEDS: METOPROLOL SUCCINATE EXT REL 25 MG TABCR PO (12:59)
--- NOTE | 2025-01-20 13:56 | PC.NURSE ---
RN attempted exertional trial on pt while monitoring O2 level. Pt is bed bound and does not have AFOs with her in order to attempt pivot to wheelchair. RN had pt lay flat in bed and bring herself to a seated position 8x. Respirations increased to 30s. HR 90s. Lowest O2 saturation was 94%. Pt appears with increased work of breathing during episode. Pt continues to endorse shortness of breath at this time.
--- NOTE | 2025-01-20 14:42 | P.HP_ITS ---
H&P: HPI History of Present Illness Date/Time: 01/20/25 14:42 Chief Complaint: Shortness of Breath Narrative: 89 y/o F with PMH of former smoker, COPD, HTN, hyperthyroidism, anxiety, and dementia presents here with shortness of breath. The patient presents here from home via EMS for further evaluation of shortness of breath. Onset 4-5 days ago with worsening this morning upon awakening. This was precipitated by a coarse cough that has been dry and exposure to a viral illness within her family. Denies chest pain, nausea, vomiting, diarrhea, fever, chills, rhinorrhea, or congestion. She is A&O x2 at baseline. Per chart review, the patient arrived to the ED with audible wheezing on exam and had persistent wheezing despite nebulizers. Initial VS at presentation: 98.7? F, HR 80, R 24, 151/75, and 96% on RA. ED workup showed: WBC 13.1, no anemia, no significant electrolyte derangements, renal function within normal limits, viral PCR negative. CXR showed clear lungs. EKG showed electronic atrial pacemaker and septal PR of indeterminate age, rate 89. Review of Systems Review of Systems: All systems reviewed & are unremarkable except as noted in HPI and below (Limited due to baseline disorientation) [facility] Past Medical History Medical History (Updated 01/20/25 @ 21:03 by Melissa Feldman APRN) Hypothyroidism (acquired) History of PR (myocardial infarction) FIDE (generalized anxiety disorder) Anxiety Macular degeneration Cataracts, bilateral Hemorrhoids COPD (chronic obstructive pulmonary disease) HTN (hypertension) Surgical History Surgical History (Updated 01/20/25 @ 20:59 by Melissa Feldman APRN) History of ankle surgery History of cholecystectomy History of intestinal surgery History of cardiac catheterization Family History Family History Other Depression Diabetes mellitus Family history of arthritis Family history of cardiovascular disease Family history of mental disorder Family history of thyroid disease Hypertension Social History Social History Smoking packs per day: 2 Smoking cigarettes per day: 40.0 Smoking status: Former smoker Tobacco type: cigarettes Smoking end date: 07/04/94 Alcohol intake: never Substance use: never Substance use type: does not use Do You Feel Safe in your Home?: Yes Lack of Transportation: No Lack of Food: Never True Current Housing: I Have Housing Concerned About Future Housing: No Difficulty Paying Gas/Electric Bills: No Difficulty Paying for Meds: No Currently Unemployed: No Education: High School Diploma/GED Difficulty w/ Childcare or Family Care: No Spiritual care concerns: No Meds Home Medications and Allergies Home Medications ?Medication ?Instructions ?Recorded ?Confirmed ?Type acetaminophen 500 mg tablet 500 mg PO ONCE PRN pain 01/20/25 01/20/25 History (Tylenol Extra Strength) albuterol sulfate 90 mcg/actuation 1 puff inhalation Q6H PRN 01/20/25 01/20/25 History aerosol inhaler shortness of breath or wheezing ascorbic acid (vitamin C) 1,000 mg 1,000 mg PO DAILY 01/20/25 01/20/25 History capsule aspirin 81 mg tablet,delayed 81 mg PO DAILY 01/20/25 01/20/25 History release (Adult Aspirin Regimen) atorvastatin 80 mg tablet 80 mg PO DAILY 01/20/25 01/20/25 History budesonide 160 mcg-glycopyr 9 2 inh inhalation BID 01/20/25 01/20/25 History mcg-formot 4.8 mcg/actuation HFA inhaler (Breztri Aerosphere) calcium carbonate (Calcium 600) 600 mg PO DAILY 01/20/25 01/20/25 History calcium polycarbophil 625 mg 625 mg PO DAILY 01/20/25 01/20/25 History tablet (Fiber (calcium polycarbophil)) docusate sodium 100 mg capsule 100 mg PO DAILY PRN constipation 01/20/25 01/20/25 History (Stool Softener) ipratropium 0.5 mg-albuterol 3 mg 1.5 ml inhalation BID 01/20/25 01/20/25 Histor y (2.5 mg base)/3 mL nebulization soln isosorbide mononitrate 60 mg 60 mg PO DAILY 01/20/25 01/20/25 History tablet,extended release 24 hr levothyroxine 100 mcg tablet 100 mcg PO DAILY 01/20/25 01/20/25 History lisinopril 10 mg tablet 20 mg PO DAILY 01/20/25 01/20/25 History loratadine 10 mg tablet 10 mg PO DAILY 01/20/25 01/20/25 History megestrol 40 mg tablet 40 mg PO TID 01/20/25 01/20/25 History metoprolol succinate 25 mg 25 mg PO DAILY 01/20/25 01/20/25 History tablet,extended release 24 hr montelukast 10 mg tablet 10 mg PO DAILY 01/20/25 01/20/25 History mv-mn-iron fum-folic acid-omega 1 cap PO DAILY 01/20/25 01/20/25 History 3,6,9 no.3 18 mg-600 mcg capsule omeprazole 20 mg capsule,delayed 20 mg PO DAILY 01/20/25 01/20/25 History release pregabalin 100 mg capsule 200 mg PO BID 01/20/25 01/20/25 History quetiapine 25 mg tablet 25 mg PO HS 01/20/25 01/20/25 History sodium chloride 1,000 mg soluble 40 mg PO DAILY 01/20/25 01/20/25 History tablet vitamin B12 0.5 mg-folic acid 1 mg 1 tablet PO DAILY 01/20/25 01/20/25 History tablet (Foltrate) Allergies Allergy/AdvReac Type Severity Reaction Status Date / Time codeine Allergy Unknown worsens Verified 02/01/19 14:45 pain donepezil Allergy Unknown sleeplessne Verified 02/01/19 14:46 ss memantine Allergy Unknown sleeplessne Verified 02/01/19 14:46 ss Opioids - Morphine Analogues Allergy Unknown unconscious Verified 02/01/19 14:45 ness Vital Signs Vital Signs - 24 hr 01/20/25 10:33 01/20/25 10:43 01/20/25 10:44 Temperature 98.7 F Pulse Rate 88 87 Respiratory Rate 24 H Blood Pressure 151/75 H Pulse Oximetry 96 96 Oxygen Delivery Room Air Nasal Cannula Oxygen Flow Rate 2 01/20/25 11:00 01/20/25 11:07 01/20/25 12:16 Temperature Pulse Rate 88 91 Respiratory Rate 20 20 Blood Pressure 178/90 H Pulse Oximetry Oxygen Delivery Oxygen Flow Rate 01/20/25 12:18 01/20/25 12:18 01/20/25 12:20 Temperature Pulse Rate 94 94 87 Respiratory Rate 23 H 23 H 20 Blood Pressure 177/76 H Pulse Oximetry 94 95 Oxygen Delivery Oxygen Flow Rate 01/20/25 12:24 01/20/25 12:40 01/20/25 12:59 Temperature Pulse Rate 89 98 92 Respiratory Rate 20 18 Blood Pressure 160/64 H Pulse Oximetry 97 Oxygen Delivery Oxygen Flow Rate 01/20/25 12:59 01/20/25 13:42 Temperature Pulse Rate 94 87 Respiratory Rate 30 H 20 Blood Pressure 165/77 H 162/64 H Pulse Oximetry 95 94 Oxygen Delivery Oxygen Flow Rate Exam Const: General: comfortable and no acute distress Other: , female, elderly, nontoxic appearance HENMT: Face/Nose/Sinus: Normal nares present Mouth: Yes moist mucous membranes Eyes: General: appearance normal, both eyes and all related structures Sclera: sclerae normal Pupils: Equal, round and reactive pupils present EOM: EOMs intact bilaterally Resp: Auscultation: clear to auscultation bilaterally Other: Mild tachypnea without accessory muscle use Cardio: Rate: regular rate Rhythm: regular rhythm Other: S1-S2 present without murmur, rub, ectopy GI: Other: Abdomen soft, nondistended, nontender. Normoactive bowel sounds in all quadrants. Skin: General skin exam: normal color and no rashes or lesions noted Wounds: no wounds Neuro: Speech: normal speech Motor exam (neuro): 5/5 motor strength present throughout Sensory Exam: normal sensation Other: A&O x2 Extrem: General: normal to inspection Psych: Mental Status: mental status grossly normal Affect: normal affect Other: Fair to poor insight and judgment, pleasant H&P: Results Labs Labs: Short CBC 01/20/25 Range/Units 11:34 WBC 13.1 H (4.5-10.0) K/mm3 Hgb 12.7 (12.0-15.0) g/dL Hct 41.4 (37.0-47.0) % Plt Count 244 (150-375) k/mm3 BMP 01/20/25 11:34 Sodium 137 Potassium 4.1 Chloride 102 Carbon Dioxide 23 BUN 23 H Creatinine 0.75 Glucose 104 Calcium 9.2 Liver Function 01/20/25 Range/Units 11:34 Total Bilirubin 0.3 (0.2-1.3) mg/dL AST 29 (14-36) U/L ALT 26 (6-35) U/L Alkaline Phosphatase 74 (38-126) U/L Albumin 4.1 (3.5-5.1) g/dL Assessment and Plan Assessment and plan (1) COPD exacerbation: Code(s): J44.1 - Chronic obstructive pulmonary disease with (acute) exacerbation Status: Acute Assessment and Plan: - former smoker with recent exposure to viral illness, coarse cough, shortness of breath. No hypoxia. Viral PCR negative. No improvement with recent steroid course outpatient. Given age, will treat inpatient for COPD exacerbation - CXR showed clear lungs - DuoNebs jose - steroid course IV - started on ceftriaxone and azithromycin on 01/20 for exacerbation - Mucinex jose - continue home meds (2) HTN (hypertension): Qualifiers: Hypertension type: primary hypertension Qualified Code(s): I10 - Essential (primary) hypertension Code(s): I10 - Essential (primary) hypertension Status: Chronic Assessment and Plan: - chronic, currently 162/69 - continue home medications: Lisinopril, Metoprolol - monitor Plan Diet: Heart healthy GI Prophylaxis: N/a DVT Prophylaxis: SCDs IV fluids: LR at 150 mL/hr x1L Lines/Tubes: peripheral IV Code Status: full code Quality VTE Prophylaxis VTE prophylaxis: mechanical ordered Hospitalist [facility] Advance Care Plan I have confirmed that the patient's Advanced Care Plan is present, code status is documented, or surrogate decision maker is listed in patient medical record.: Yes Medication Reconciliation I have utilized all available resources to obtain, update and review the patients current medications (includes all prescriptions, OTC, herbals, cannabis, and nutritional supplements).: Yes
[2025-01-20] MEDS: cefTRIAXone 1 GM in SODIUM CHLORIDE 0.9% IV 50 ML 100 ML IVPB (16:06)
--- NOTE | 2025-01-20 16:25 | ADMGEN ---
This patient, Roslyn Kasper, was admitted to Medical Room 244-. Patient/family oriented to hospital policies and general routines including ID bracelet, bed and alarms, visiting hours, pain management, procedures, bathroom and other care routines, personal items, smoking policy, room service/diet, and visiting hours. Information on how to activate the Rapid Response Team has been discussed. Patient/Family are encouraged to report perceived risks to care and to ask questions if they do not understand what they are told or what they should do.
[2025-01-20] MEDS: LACTATED RINGERS 1,000 ML 150 ML IV CONT (17:43)
[2025-01-20] MEDS: IPRATROPIUM BR 0.02% INH SOLN 0.5 MG/2.5 ML VIAL INHALATION (20:00)
[2025-01-20] MEDS: guaiFENesin 12 HR 600 MG TABCR PO (21:02)
--- NOTE | 2025-01-20 21:43 | PCRCNOTE ---
Patient seen this pm for initial respiratory medical staff physician; she stated there she had chest pain with previous nebulized Albuterol treatments; med changed to Levalbuterol. Further discussion reveals confusion and only 30 seconds of nebulizer with mask before patient refuses treatment saying that she just can't do it. Attempted to use mouthpiece, unsuccessful. No pain or other symptoms noted.
[2025-01-20] MEDS: PREGABALIN (*CRX) 50 MG CAPSULE 200 MG PO (23:04)
[2025-01-21] VITALS (19 sets, daily range): BP systolic 125–152; BP diastolic 71–87; PULSE 82–94; RESP 18–24; TEMP 36.5–36.8; O2SAT 93–98; BMI 32.0
[2025-01-21 00:43] LABS: Add Urine Microscopic? YES; Appearance Urine Clear (Clear); Glucose Urine UA Negative (Negative); Leukocyte Esterase Ur Trace LEU/UL (Negative); Nitrate Urine Negative (Negative); Specific Grav Ur 1.011 (1.001-1.035)
[2025-01-21] MEDS: IPRATROPIUM BR 0.02% INH SOLN 0.5 MG/2.5 ML VIAL INHALATION ×4 (02:24→20:45)
[2025-01-21] MEDS: LEVOTHYROXINE SODIUM 100 MCG TABLET PO (04:23)
[2025-01-21 05:25] LABS: Hematocrit 42.0 % (37.0-47.0); Hemoglobin 13.4 g/dL (12.0-15.0); Immature Granulocyte Percent A 0.7 % (0-0.5); Lymphocytes Absolute Auto 1.03 K/mm3 (0.9-3.2); Mean Corpuscular HGB Conc 31.9 g/dl (32-36); Mean Corpuscular Hemoglobin 28.3 pg (26-34); Mean Corpuscular Volume 88.8 fl (80-100); Nucleated Red Blood Cells Absolute Auto 0.000 K/mm3 (0.0-0.012); Nucleated Red Blood Cells Perc 0.0 % (0.0-0.2); Platelet Count Result 275 k/mm3 (150-375); Red Blood Count 4.73 M/mm3 (4.2-5.4); White Blood Count 8.0 K/mm3 (4.5-10.0)
[2025-01-21 05:51] LABS: Anion Gap 11 mmol/L (4-12); Blood Urea Nitrogen 19 mg/dL (7-17); Calcium 9.3 mg/dL (8.4-10.2); Carbon Dioxide 25 mmol/L (22-30); Chloride 99 mmol/L (98-107); Estimated Glomerular Filt Rate > 60; Glucose 147 mg/dL (65-110); Potassium 4.1 mmol/L (3.4-5.0); Sodium 135 mmol/L (137-145)
--- NOTE | 2025-01-21 07:25 | P.PNIM_ITS ---
Progress Note: A&P Assessment and Plan (1) Acute respiratory failure: Code(s): J96.00 - Acute respiratory failure, unspecified whether with hypoxia or hypercapnia Status: Acute Assessment and Plan: Wean for sats >92% -Goals of care: No Bipap, No intubation -High risk for respiratory decompensation but no plan for advanced airways (2) COPD exacerbation: Code(s): J44.1 - Chronic obstructive pulmonary disease with (acute) exacerbation Status: Acute Assessment and Plan: Former smoker with recent exposure to viral illness, coarse cough, shortness of breath. No hypoxia. Viral PCR negative. No improvement with recent steroid course outpatient. Given age, will treat inpatient for COPD exacerbation - CXR showed clear lungs, repeat chest x-ray - Duonebs jose but not tolerating well due to severe claustrophobia - Continue IV methylprednisone 60mg IV q6 - started on ceftriaxone and azithromycin on 01/20 for exacerbation - Mucinex scheduled - continue home meds: Trelegy substituted for Breztri --Treatment of respiratory failure (3) HTN (hypertension): Qualifiers: Hypertension type: primary hypertension Qualified Code(s): I10 - Essential (primary) hypertension Code(s): I10 - Essential (primary) hypertension Status: Chronic Assessment and Plan: - chronic, currently 162/69 - continue home medications: Lisinopril, Metoprolol - monitor Plan Diet: Heart healthy GI Prophylaxis: N/a DVT Prophylaxis: SCDs IV fluids: LR at 150 mL/hr x1L Lines/Tubes: peripheral IV Code Status: full code Time Spent With Patient Time: 58 minutes Subjective Date/time seen: 01/21/25 16:15 Interval history: Increased work of breathing, but family reports it is better than this weekend Has significant claustrophobia, not tolerating breathing treatments or even the pipe style breathing treatments Discussed with family at bedside: No bipap or intubation. No CPR. Daughter, ADALBERTO, initially considered intubation only in an emergency, but discussed further and opted against intubation due to severe claustrophobia. Review of Systems Review of Systems: All systems reviewed & are unremarkable except as noted in HPI and below (Limited due to baseline disorientation) Exam Narrative: General - Awake and alert. No acute distress Eyes - PERRLA, EOM intact ENT - No thrush, No erythema Neck - No noticeable or palpable swelling Lymph Nodes - No lymphadenopathy Cardiovascular - RRR no m/r/g, no JVD Lungs: Wheezing to small airways, abdominal accessory muscle use Skin - Skin warm and dry, no wounds or rashes Abdomen - Normal bowel sounds, abdomen soft and nontender Extremities - No edema, cyanosis or clubbing Musculoskeletal - 3/5 strength, normal range of motion, no swollen or erythematous joints. Neurological ? Alert and oriented x 1, CN 2-12 grossly intact. Psych: Mildly anxious Objective Data Vital Signs Vital Signs: Vital Signs - 24 hr 01/20/25 10:33 01/20/25 10:43 01/20/25 10:44 Temperature 98.7 F Pulse Rate 88 87 Respiratory Rate 24 H Blood Pressure 151/75 H Pulse Oximetry 96 96 Oxygen Delivery Room Air Nasal Cannula Oxygen Flow Rate 2 01/20/25 11:00 01/20/25 11:07 01/20/25 12:16 Temperature Pulse Rate 88 91 Respiratory Rate 20 20 Blood Pressure 178/90 H Pulse Oximetry Oxygen Delivery Oxygen Flow Rate 01/20/25 12:18 01/20/25 12:18 01/20/25 12:20 Temperature Pulse Rate 94 94 87 Respiratory Rate 23 H 23 H 20 Blood Pressure 177/76 H Pulse Oximetry 94 95 Oxygen Delivery Oxygen Flow Rate 01/20/25 12:24 01/20/25 12:40 01/20/25 12:59 Temperature Pulse Rate 89 98 92 Respiratory Rate 20 18 Blood Pressure 160/64 H Pulse Oximetry 97 Oxygen Delivery Oxygen Flow Rate 01/20/25 12:59 01/20/25 13:42 01/20/25 15:29 Temperature Pulse Rate 94 87 87 Respiratory Rate 30 H 20 30 H Blood Pressure 165/77 H 162/64 H Pulse Oximetry 95 94 94 Oxygen Delivery Oxygen Flow Rate 01/20/25 16:14 01/20/25 18:28 01/20/25 18:28 Temperature Pulse Rate 84 92 Respiratory Rate 28 H Blood Pressure 158/79 H Pulse Oximetry 95 95 Oxygen Delivery Room Air Oxygen Flow Rate 01/20/25 20:00 01/20/25 20:00 01/20/25 20:09 Temperature 98.0 F Pulse Rate 88 85 95 Respiratory Rate 18 20 Blood Pressure 162/69 H Pulse Oximetry 93 Oxygen Delivery Oxygen Flow Rate 01/20/25 20:46 01/21/25 00:00 01/21/25 02:24 Temperature Pulse Rate 82 88 Respiratory Rate 18 Blood Pressure Pulse Oximetry Oxygen Delivery Room Air Oxygen Flow Rate 01/21/25 02:34 01/21/25 03:53 01/21/25 04:00 Temperature 97.7 F Pulse Rate 88 83 92 Respiratory Rate 22 H 18 Blood Pressure 152/87 H Pulse Oximetry 93 Oxygen Delivery Oxygen Flow Rate 01/21/25 06:14 01/21/25 06:20 01/21/25 06:24 Temperature Pulse Rate 91 94 94 Respiratory Rate 24 H 24 H 24 H Blood Pressure Pulse Oximetry 94 Oxygen Delivery Room Air Oxygen Flow Rate Intake/Output Intake/Output: Intake & Output 01/18/25 01/19/25 01/20/25 01/21/25 23:59 23:59 23:59 23:59 Intake Total 240 1190 Output Total 400 Balance 240 790 Meds/Results Medications: Active Medications Generic Name Dose Route Start Last Admin Trade Name Freq PRN Reason Stop Dose Admin Acetaminophen 650 mg 01/20/25 15:32 Acetaminophen 325 Mg Tablet PO Q6H PRN Mild Pain (1-3) or Fever Ascorbic Acid 1,000 mg 01/21/25 09:00 Ascorbic Acid 500 Mg Tablet PO DAILY [facility] Aspirin 81 mg 01/21/25 09:00 Aspirin 81 Mg Enteric Tablet PO DAILY [facility] Atorvastatin Calcium 80 mg 01/21/25 09:00 Atorvastatin 40 Mg Tablet PO DAILY [facility] Calcium Carbonate 500 mg 01/21/25 09:00 Calcium Carbonate (Oscal) 500 Mg Tablet PO DAILY [facility] Calcium Polycarbophil 625 mg 01/21/25 09:00 Calcium Polycarbophil 625 Mg Tablet PO DAILY [facility]1983 Cyanocobalamin 500 mcg 01/21/25 09:00 Cyanocobalamin 500 Mcg Tablet PO DAILY [facility] Docusate Sodium 100 mg 01/20/25 21:03 Docusate Sodium 100 Mg Capsule PO DAILY PRN constipation Fluticasone/Umeclidinium/Vilanterol 1 puff 01/21/25 09:00 Fluticasone/Umeclidin/Vilanter 100-62.5-25 Mcg Ellipta INHALATION DAILY [facility] Folic Acid 1 mg 01/21/25 09:00 Folic Acid 1 Mg Tablet PO DAILY [facility] Guaifenesin 600 mg 01/20/25 21:00 01/20/25 21:02 Guaifenesin 12 Hr 600 Mg Tabcr PO 600 mg Q12HR JOSE Administration Ceftriaxone Sodium 1 gm/ 50 mls @ 100 mls/hr 01/20/25 16:00 01/20/25 16:06 Sodium Chloride IVPB 100 mls/hr Q24H JOSE Administration Azithromycin 500 mg/ Sodium 250 mls @ 250 mls/hr 01/21/25 12:00 Chloride IVPB 01/25/25 12:59 Q24H [facility] Ipratropium [place] 0.5 mg 01/20/25 20:00 01/21/25 06:14 Ipratropium Br 0.02% Inh Soln 0.5 Mg/2.5 Ml Vial INHALATION 0.5 mg Q6HRT [facility] Administration Isosorbide Mononitrate 60 mg 01/21/25 09:00 Isosorbide Mononitrate 60 Mg Tab.Er.24h PO DAILY [facility] Levalbuterol HCl 1.25 mg 01/20/25 20:00 01/21/25 06:13 Levalbuterol Neb 1.25 Mg/3 Ml INHALATION 1.25 mg Q6HRT [facility] Administration Levothyroxine Sodium 100 mcg 01/21/25 06:30 01/21/25 04:23 Levothyroxine Sodium 100 Mcg Tablet PO 100 mcg DAILY@0630 [facility] Administration Lisinopril 20 mg 01/21/25 09:00 Lisinopril 20 Mg Tablet PO DAILY [facility] Loratadine 10 mg 01/21/25 09:00 Loratadine 10 Mg Tablet PO DAILY [facility] Megestrol Acetate 40 mg 01/21/25 09:00 Megestrol Acetate (*Chemo) 40 Mg Tablet PO TID [facility] Methylprednisolone Sodium Succinate 60 mg 01/20/25 15:00 01/21/25 04:23 Methylprednisolone Sod Succ 125 Mg Vial IV PUSH 60 mg Q6H [facility] Administration Metoprolol Succinate 25 mg 01/21/25 09:00 Metoprolol Succinate Ext Rel 25 Mg Tabcr PO DAILY [facility] Montelukast Sodium 10 mg 01/21/25 09:00 Montelukast Sodium 10 Mg Tablet PO DAILY [facility] Multivitamins Therapeutic 1 tablet 01/21/25 09:00 Multivitamins Therapeutic Tab (*Bkc) PO DAILY [facility] Ondansetron HCl 4 mg 01/20/25 15:32 Ondansetron Hcl Odt 4 Mg Tablet PO Q6H PRN Nausea And Vomiting Pantoprazole Sodium 40 mg 01/21/25 09:00 Pantoprazole 40 Mg Tablet PO DAILY JOSE Pregabalin 200 mg 01/20/25 21:15 01/20/25 23:04 Pregabalin (*Crx) 50 Mg Capsule PO 200 mg BID JOSE Administration Quetiapine Fumarate 25 mg 01/20/25 21:55 01/20/25 23:04 Quetiapine Fumarate 25 Mg Tablet PO 25 mg HS JOSE Administration Radiology Results: ITS Impressions Chest X-Ray 01/20/25 10:59 Impression: Clear lungs. Labs Labs: Laboratory Results - last 24 hr 01/20/25 01/20/25 01/21/25 10:58 11:34 00:23 WBC 13.1 H RBC 4.56 Hgb 12.7 Hct 41.4 MCV 90.8 MCH 27.9 MCHC 30.7 L RDW 15.4 H Plt Count 244 MPV 10.5 H Immature Gran % (Auto) 0.4 Neut % (Auto) 71.6 Lymph % (Auto) 20.1 [place] % (Auto) 5.4 Eos % (Auto) 2.1 Baso % (Auto) 0.4 Lymph # (Auto) 2.63 [place] # (Auto) 0.7 H Eos # (Auto) 0.3 Baso # (Auto) 0.1 Abs Immat Gran (auto) 0.05 H Absolute Neuts (auto) 9.4 H Absolute Nucleated RBC 0.000 Nucleated RBC % 0.0 Sodium 137 Potassium 4.1 Chloride 102 Carbon Dioxide 23 Anion Gap 12 BUN 23 H Creatinine 0.75 Estim Creat Clear Calc Not Reportable Estimated GFR > 60 Glucose 104 Calcium 9.2 Total Bilirubin 0.3 AST 29 ALT 26 Alkaline Phosphatase 74 NT-Pro-B Natriuret Pep Cancelled 81 Total Protein 7.4 Albumin 4.1 Urine Color Yellow Urine Appearance Clear Urine pH 6.0 Ur Specific [place] 1.011 Urine Protein 2+ H Urine Glucose (UA) Negative Urine Ketones Negative Ur Blood (Man) Negative Urine Nitrate Negative Urine Bilirubin Negative Urine Urobilinogen 0.2 Leukocyte Esterase Rfl Trace H Urine RBC 3-5 H Urine WBC 0-5 Ur Squamous Epith Cells None seen Urine Bacteria None seen Urine Casts 3-5 Influenza A (RT-PCR) Negative Influenza B (RT-PCR) Negative RSV (RT-PCR) Negative SARS-CoV-2 RNA (RT-PCR) Negative 01/21/25 05:15 WBC 8.0 RBC 4.73 Hgb 13.4 Hct 42.0 MCV 88.8 MCH 28.3 MCHC 31.9 L RDW 14.6 H Plt Count 275 MPV 10.5 H Immature Gran % (Auto) 0.7 H Neut % (Auto) 83.7 H Lymph % (Auto) 12.8 L [place] % (Auto) 2.7 Eos % (Auto) 0.0 Baso % (Auto) 0.1 L Lymph # (Auto) 1.03 [place] # (Auto) 0.2 Eos # (Auto) 0.0 Baso # (Auto) 0.0 Abs Immat Gran (auto) 0.06 H Absolute Neuts (auto) 6.7 Absolute Nucleated RBC 0.000 Nucleated RBC % 0.0 Sodium 135 L Potassium 4.1 Chloride 99 Carbon Dioxide 25 Anion Gap 11 BUN 19 H Creatinine 0.71 Estim Creat Clear Calc Not Reportable Estimated GFR > 60 Glucose 147 H Calcium 9.3 Total Bilirubin AST ALT Alkaline Phosphatase NT-Pro-B Natriuret Pep Total Protein Albumin Urine Color Urine Appearance Urine pH Ur Specific [place] Urine Protein Urine Glucose (UA) Urine Ketones Ur Blood (Man) Urine Nitrate Urine Bilirubin Urine Urobilinogen Leukocyte Esterase Rfl Urine RBC Urine WBC Ur Squamous Epith Cells Urine Bacteria Urine Casts Influenza A (RT-PCR) Influenza B (RT-PCR) RSV (RT-PCR) SARS-CoV-2 RNA (RT-PCR) Quality VTE Prophylaxis VTE prophylaxis: mechanical ordered Hospitalist MIPS Advance Care Plan I have confirmed that the patient's Advanced Care Plan is present, code status is documented, or surrogate decision maker is listed in patient medical record.: Yes Medication Reconciliation I have utilized all available resources to obtain, update and review the patients current medications (includes all prescriptions, OTC, herbals, cannabis, and nutritional supplements).: Yes
[2025-01-21] MEDS: ASCORBIC ACID 500 MG TABLET 1000 MG PO (08:02)
[2025-01-21] MEDS: PREGABALIN (*CRX) 50 MG CAPSULE 200 MG PO ×2 (08:02→17:17)
[2025-01-21] MEDS: CALCIUM CARBONATE (OSCAL) 500 MG TABLET PO (08:02)
[2025-01-21] MEDS: FOLIC ACID 1 MG TABLET PO (08:03)
[2025-01-21] MEDS: LORATADINE 10 MG TABLET PO (08:03)
[2025-01-21] MEDS: ISOSORBIDE MONONITRATE 60 MG TAB.ER.24H PO (08:03)
[2025-01-21] MEDS: METOPROLOL SUCCINATE EXT REL 25 MG TABCR PO (08:03)
[2025-01-21] MEDS: ASPIRIN 81 MG ENTERIC TABLET PO (08:03)
[2025-01-21] MEDS: PANTOPRAZOLE 40 MG TABLET PO (08:03)
[2025-01-21] MEDS: MULTIVITAMINS THERAPEUTIC TAB (*BKC) 1 TABLET PO (08:03)
[2025-01-21] MEDS: CYANOCOBALAMIN 500 MCG TABLET PO (08:04)
[2025-01-21] MEDS: guaiFENesin 12 HR 600 MG TABCR PO ×2 (08:04→21:19)
[2025-01-21] MEDS: ATORVASTATIN 40 MG TABLET 80 MG PO (08:04)
[2025-01-21] MEDS: MEGESTROL ACETATE (*CHEMO) 40 MG TABLET PO ×3 (08:04→17:17)
[2025-01-21] MEDS: MONTELUKAST SODIUM 10 MG TABLET PO (08:04)
[2025-01-21] MEDS: ACETAMINOPHEN 325 MG TABLET 650 MG PO ×2 (12:08→21:22)
[2025-01-21] MEDS: AZITHROMYCIN IV 500 MG in SODIUM CHLORIDE 0.9% IV 250 ML IVPB (12:08)
[2025-01-21] MEDS: FLUTICASONE/UMECLIDIN/VILANTER 100-62.5-25 MCG ELLIPTA 1 PUFF INHALATION (14:13)
[2025-01-21] MEDS: cefTRIAXone 1 GM in SODIUM CHLORIDE 0.9% IV 50 ML 100 ML IVPB (16:26)
[2025-01-22] VITALS (14 sets, daily range): BP systolic 144–187; BP diastolic 70–89; PULSE 60–87; RESP 20–22; TEMP 36.4–36.5; O2SAT 95–99
[2025-01-22] MEDS: IPRATROPIUM BR 0.02% INH SOLN 0.5 MG/2.5 ML VIAL INHALATION (01:37)
[2025-01-22 05:47] LABS: Fractional Inspired Oxygen 36 %; HCO3 VBG 27.5 mEq/l (24.0-30.0); PCO2 VBG 44.3 mmHg (42.0-48.0); PO2 VBG 44.0 mmHg (35.0-45.0)
[2025-01-22] MEDS: LEVOTHYROXINE SODIUM 100 MCG TABLET PO (05:54)
[2025-01-22 05:56] LABS: Liters per Minute 4.0 LPM; pH VBG 7.411 (7.300-7.400)
--- NOTE | 2025-01-22 07:40 | P.PNIM_ITS ---
Progress Note: A&P Assessment and Plan (1) Acute respiratory failure with hypoxia: Code(s): J96.01 - Acute respiratory failure with hypoxia Status: Acute Assessment and Plan: NT proBNP normal. Still on 2L O2 Wean for sats >92% -CT r/o PE today -TTE --Pulmonary consult -Goals of care: No Bipap, No intubation -High risk for respiratory decompensation but no plan for advanced airways (2) COPD exacerbation: Code(s): J44.1 - Chronic obstructive pulmonary disease with (acute) exacerbation Status: Acute Assessment and Plan: Former smoker with recent exposure to viral illness, coarse cough, shortness of breath. No hypoxia. Viral PCR negative. No improvement with recent steroid course outpatient. Given age, will treat inpatient for COPD exacerbation - CXR showed clear lungs, repeat chest x-ray unchanged - Duonebs scheduled but not tolerating well due to severe claustrophobia, changed to albuterol q4 - Continue IV methylprednisone 60mg IV q6, can likely reduce dose soon - started on ceftriaxone and azithromycin on 01/20 for exacerbation, continue for now - Mucinex scheduled - continue home meds: Trelegy substituted for Breztri --Treatment of respiratory failure, scheduled --VBG showed respiratory alkalosis (3) HTN (hypertension): Qualifiers: Hypertension type: primary hypertension Qualified Code(s): I10 - Essential (primary) hypertension Code(s): I10 - Essential (primary) hypertension Status: Chronic Assessment and Plan: - chronic, currently 162/69 - continue home medications: Lisinopril, Metoprolol - monitor Plan Diet: Heart healthy GI Prophylaxis: N/a DVT Prophylaxis: SCDs IV fluids: LR at 150 mL/hr x1L Lines/Tubes: peripheral IV Code Status: full code Time Spent With Patient Time: 65 minutes Assessed patient 3 times today Subjective Date/time seen: 01/22/25 15:04 Interval history: Respiratory alkalosis on VBG Possibly improving slowly, still on 2L O2 and mildly increased work of breathing at rest and minimal exertion. Consulting pulmonary given difficulty with inhalers and nebulizer treatments due to claustrophobia Review of Systems Review of Systems: All systems reviewed & are unremarkable except as noted in HPI and below (Limited due to baseline disorientation) Exam Narrative: General - Awake and alert. No acute distress Eyes - PERRLA, EOM intact ENT - No thrush, No erythema Neck - No noticeable or palpable swelling Lymph Nodes - No lymphadenopathy Cardiovascular - RRR no m/r/g, no JVD Lungs: End expiratory wheezing, less abdominal accessory muscle use Skin - Skin warm and dry, no wounds or rashes Abdomen - Normal bowel sounds, abdomen soft and nontender Extremities - No edema, cyanosis or clubbing Musculoskeletal - 3/5 strength, normal range of motion, no swollen or erythematous joints. Neurological ? Alert and oriented x 1, CN 2-12 grossly intact. Psych: Mildly anxious Objective Data Vital Signs Vital Signs: Vital Signs - 24 hr 01/21/25 08:00 01/21/25 08:00 01/21/25 12:00 Temperature Pulse Rate 94 85 Respiratory Rate Blood Pressure Pulse Oximetry Oxygen Delivery Room Air Fraction of Inspired Oxygen 01/21/25 13:06 01/21/25 13:12 01/21/25 14:00 Temperature 98.2 F Pulse Rate 89 88 94 Respiratory Rate 21 H 20 20 Blood Pressure 125/72 Pulse Oximetry 98 Oxygen Delivery Fraction of Inspired Oxygen 01/21/25 14:12 01/21/25 16:00 01/21/25 20:00 Temperature Pulse Rate 89 86 84 Respiratory Rate Blood Pressure Pulse Oximetry Oxygen Delivery Fraction of Inspired Oxygen 01/21/25 20:26 01/21/25 20:45 01/21/25 20:49 Temperature 97.7 F Pulse Rate 86 85 85 Respiratory Rate 22 H 20 20 Blood Pressure 150/71 H Pulse Oximetry 95 95 Oxygen Delivery Room Air Fraction of Inspired Oxygen 01/21/25 21:10 01/22/25 00:00 01/22/25 01:38 Temperature Pulse Rate 74 60 Respiratory Rate 20 Blood Pressure Pulse Oximetry Oxygen Delivery Room Air Fraction of Inspired Oxygen 01/22/25 04:00 01/22/25 05:16 Temperature 97.7 F Pulse Rate 82 84 Respiratory Rate 22 H Blood Pressure 187/89 H Pulse Oximetry 95 Oxygen Delivery Fraction of Inspired Oxygen Intake/Output Intake/Output: Intake & Output 01/19/25 01/20/25 01/21/25 01/22/25 23:59 23:59 23:59 23:59 Intake Total 290 1610 120 Output Total 600 600 Balance 290 1010 -480 Meds/Results Medications: Active Medications Generic Name Dose Route Start Last Admin Trade Name Freq PRN Reason Stop Dose Admin Acetaminophen 650 mg 07/20/25 15:32 01/21/25 21:22 Acetaminophen 325 Mg Tablet PO 650 mg Q6H PRN Administration Mild Pain (1-3) or Fever Ascorbic Acid 1,000 mg 01/21/25 09:00 01/21/25 08:02 Ascorbic Acid 500 Mg Tablet PO 1,000 mg DAILY SHAWNA Administration Aspirin 81 mg 01/21/25 09:00 01/21/25 08:03 Aspirin 81 Mg Enteric Tablet PO 81 mg DAILY SHAWNA Administration Atorvastatin Calcium 80 mg 01/21/25 09:00 01/21/25 08:04 Atorvastatin 40 Mg Tablet PO 80 mg DAILY SHAWNA Administration Calcium Carbonate 500 mg 01/21/25 09:00 01/21/25 08:02 Calcium Carbonate (Oscal) 500 Mg Tablet PO 500 mg DAILY SHAWNA Administration Calcium Polycarbophil 625 mg 01/21/25 09:00 01/21/25 08:04 Calcium Polycarbophil 625 Mg Tablet PO 625 mg DAILY SHAWNA Administration Cyanocobalamin 500 mcg 01/21/25 09:00 01/21/25 08:04 Cyanocobalamin 500 Mcg Tablet PO 500 mcg DAILY SHAWNA Administration Docusate Sodium 100 mg 01/20/25 21:03 Docusate Sodium 100 Mg Capsule PO DAILY PRN constipation Fluticasone/Umeclidinium/Vilanterol 1 puff 01/21/25 13:25 01/21/25 14:13 Fluticasone/Umeclidin/Vilanter 100-62.5-25 Mcg Ellipta INHALATION 1 puff DAILYRT SHAWNA Administration Folic Acid 1 mg 01/21/25 09:00 01/21/25 08:03 Folic Acid 1 Mg Tablet PO 1 mg DAILY SHAWNA Administration Guaifenesin 600 mg 01/20/25 21:00 01/21/25 21:19 Guaifenesin 12 Hr 600 Mg Tabcr PO 600 mg Q12HR SHAWNA Administration Ceftriaxone Sodium 1 gm/ 50 mls @ 100 mls/hr 01/20/25 16:00 01/21/25 16:26 Sodium Chloride IVPB 100 mls/hr Q24H SHAWNA Administration Azithromycin 500 mg/ Sodium 250 mls @ 250 mls/hr 01/21/25 12:00 01/21/25 12:08 Chloride IVPB 01/25/25 12:59 250 mls/hr Q24H SHAWNA Administration Ipratropium [place] 0.5 mg 01/20/25 20:00 01/22/25 01:37 Ipratropium Br 0.02% Inh Soln 0.5 Mg/2.5 Ml Vial INHALATION 0.5 mg Q6HRT SHAWNA Administration Isosorbide Mononitrate 60 mg 01/21/25 09:00 01/21/25 08:03 Isosorbide Mononitrate 60 Mg Tab.Er.24h PO 60 mg DAILY SHAWNA Administration Levalbuterol HCl 1.25 mg 01/21/25 18:22 Levalbuterol Neb 1.25 Mg/3 Ml INHALATION Q6HRT PRN shortness of breath Levothyroxine Sodium 100 mcg 01/21/25 06:30 01/22/25 05:54 Levothyroxine Sodium 100 Mcg Tablet PO 100 mcg DAILY@0630 SHAWNA Administration Lisinopril 20 mg 01/21/25 09:00 01/21/25 08:03 Lisinopril 20 Mg Tablet PO 20 mg DAILY SHAWNA Administration Loratadine 10 mg 01/21/25 09:00 01/21/25 08:03 Loratadine 10 Mg Tablet PO 10 mg DAILY SHAWNA Administration Megestrol Acetate 40 mg 01/21/25 09:00 01/21/25 17:17 Megestrol Acetate (*Chemo) 40 Mg Tablet PO 40 mg TID SHAWNA Administration Methylprednisolone Sodium Succinate 60 mg 01/20/25 15:00 01/22/25 04:44 Methylprednisolone Sod Succ 125 Mg Vial IV PUSH 60 mg Q6H SHAWNA Administration Metoprolol Succinate 25 mg 01/21/25 09:00 01/21/25 08:03 Metoprolol Succinate Ext Rel 25 Mg Tabcr PO 25 mg DAILY SHAWNA Administration Montelukast Sodium 10 mg 01/21/25 09:00 01/21/25 08:04 Montelukast Sodium 10 Mg Tablet PO 10 mg DAILY SHAWNA Administration Multivitamins Therapeutic 1 tablet 01/21/25 09:00 01/21/25 08:03 Multivitamins Therapeutic Tab (*Bkc) PO 1 tablet DAILY SHAWNA Administration Ondansetron HCl 4 mg 01/20/25 15:32 Ondansetron Hcl Odt 4 Mg Tablet PO Q6H PRN Nausea And Vomiting Pantoprazole Sodium 40 mg 01/21/25 09:00 01/21/25 08:03 Pantoprazole 40 Mg Tablet PO 40 mg DAILY SHAWNA Administration Pregabalin 200 mg 01/20/25 21:15 01/21/25 17:17 Pregabalin (*Crx) 50 Mg Capsule PO 200 mg BID SHAWNA Administration Quetiapine Fumarate 25 mg 01/20/25 21:55 01/21/25 21:19 Quetiapine Fumarate 25 Mg Tablet PO 25 mg HS SHAWNA Administration Radiology Results: ITS Impressions Chest X-Ray 01/21/25 18:28 IMPRESSION: No acute cardiopulmonary process. Labs Labs: Laboratory Results - last 24 hr 01/22/25 05:38 VBG pH 7.411 H* VBG pCO2 44.3 VBG pO2 44.0 VBG HCO3 27.5 O2 Delivery Device Nasal cannula O2 Liters/Min 4.0 FiO2 36 Quality VTE Prophylaxis VTE prophylaxis: mechanical ordered Hospitalist [facility] Advance Care Plan I have confirmed that the patient's Advanced Care Plan is present, code status is documented, or surrogate decision maker is listed in patient medical record.: Yes Medication Reconciliation I have utilized all available resources to obtain, update and review the lisandro mcqueen current medications (includes all prescriptions, OTC, herbals, cannabis, and nutritional supplements).: Yes
--- NOTE | 2025-01-22 08:22 | P.CDI_ITS ---
CDI Query Clarification Request Please review the clinical information below and clarify the respiratory diagn osis the patient is being treated for: Hypoxia or hypoxemia without respiratory failure Respiratory distress without respiratory failure Acute respiratory failure with hypoxia Acute respiratory failure with hypercapnia Acute respiratory failure with hypoxia and hypercapnia Acute on chronic respiratory failure with hypoxia Acute on chronic respiratory failure with hypercapnia Acute on chronic respiratory failure with hypoxia and hypercapnia Acute respiratory distress syndrome (ARDS) Chronic respiratory failure with hypoxia Chronic respiratory failure with hypercapnia Chronic respiratory failure with hypoxia and hypercapnia Other explanation clinical findings, please specify Unable to determine The medical chart reflects the following: Assessment and Plan (1) Acute respiratory failure: Wean for sats >92% -Goals of care: No Bipap, No intubation -High risk for respiratory decompensation but no plan for advanced airways (2) COPD exacerbation: Former smoker with recent exposure to viral illness, coarse cough, shortness of breath. No hypoxia. Viral PCR negative. No improvement with recent steroid course outpatient. Given age, will treat inpatient for COPD exacerbation - CXR showed clear lungs, repeat chest x-ray - Duonebs jose but not tolerating well due to severe claustrophobia - Continue IV methylprednisone 60mg IV q6 - started on ceftriaxone and azithromycin on 01/20 for exacerbation - Mucinex scheduled - continue home meds: Trelegy substituted for Breztri --Treatment of respiratory failure <Natalie Reyes RN - Last Filed: 01/22/25 08:26> Clarified Diagnosis Clarified Diagnosis: Acute respiratory failure with hypoxia <Rhona Mcgill APRN - Last Filed: 01/22/25 15:24>
[2025-01-22] MEDS: CALCIUM CARBONATE (OSCAL) 500 MG TABLET PO (10:01)
[2025-01-22] MEDS: ATORVASTATIN 40 MG TABLET 80 MG PO (10:01)
[2025-01-22] MEDS: PREGABALIN (*CRX) 50 MG CAPSULE 200 MG PO ×2 (10:01→16:42)
[2025-01-22] MEDS: MONTELUKAST SODIUM 10 MG TABLET PO (10:01)
[2025-01-22] MEDS: ASPIRIN 81 MG ENTERIC TABLET PO (10:02)
[2025-01-22] MEDS: MULTIVITAMINS THERAPEUTIC TAB (*BKC) 1 TABLET PO (10:02)
[2025-01-22] MEDS: MEGESTROL ACETATE (*CHEMO) 40 MG TABLET PO ×3 (10:02→16:42)
[2025-01-22] MEDS: ISOSORBIDE MONONITRATE 60 MG TAB.ER.24H PO (10:03)
[2025-01-22] MEDS: FOLIC ACID 1 MG TABLET PO (10:03)
[2025-01-22] MEDS: CYANOCOBALAMIN 500 MCG TABLET PO (10:03)
[2025-01-22] MEDS: PANTOPRAZOLE 40 MG TABLET PO (10:03)
[2025-01-22] MEDS: ASCORBIC ACID 500 MG TABLET 1000 MG PO (10:03)
[2025-01-22] MEDS: LORATADINE 10 MG TABLET PO (10:04)
[2025-01-22] MEDS: METOPROLOL SUCCINATE EXT REL 25 MG TABCR PO (10:04)
[2025-01-22] MEDS: guaiFENesin 12 HR 600 MG TABCR PO ×2 (10:05→20:12)
[2025-01-22] MEDS: AZITHROMYCIN IV 500 MG in SODIUM CHLORIDE 0.9% IV 250 ML IVPB (12:00)
--- NOTE | 2025-01-22 13:19 | PCNFU ---
Nutrition Follow-Up Complete: Inability to meet nutrition needs PO related to poor appetite as evidenced by need for supplemental PEG tube feedings Goal:Meet estimated nutrition needs Pt progressing towards goal Pt current nutrition is Heart healthy, Ensure BID, TF: Jevity 1.5 bolus 240ml BID. Nutrition recommendation: continue with current plan of care Last recorded weight is 72 kg. Bowel Motility: +BM 01/22 Labs Reviewed: NA:135, BUN:19, Glu:147 Meds Noted: solumedrol, megace, MVI, B12, folic acid Skin: WNL Additional Notes: Pt continues on a heart healthy diet, intake 25-50% per chart. Ensure ordered BID. Tube feedings of Jevity 1.5 240ml bolus BID in place. Pt tolerating well. Monitoring intakes, weights, labs, tube feeding tolerance, output, plan of care Follow up Tuesday/Tuesday
[2025-01-22] MEDS: cefTRIAXone 1 GM in SODIUM CHLORIDE 0.9% IV 50 ML 100 ML IVPB (15:33)
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
[2025-01-22] MEDS: ENOXAPARIN 40 MG/0.4 ML SYRINGE SUB-Q (16:09)
[2025-01-23] VITALS (12 sets, daily range): BP systolic 148–166; BP diastolic 65–85; PULSE 76–93; RESP 16–20; TEMP 36.4–36.9; O2SAT 93–98
--- NOTE | 2025-01-23 | ECHO_ITS ---
Patient Info Name: Roslyn Kasper Age: 89 years : 1935 Gender: Female Ht: 59 in Wt: 158 lbs BSA: 1.76 m2 HR: 84 bpm BP: 166 / 74 mmHg Heart Rhythm: Sinus Rhythm Technical Quality: Poor Exam Date: 01/23/2025 11:23 AM Patient Status: I Admit Date: 01/21/2025 Exam Type: CA echo dop color flow w con Complete two-dimensional, color flow and Doppler transthoracic echocardiogram is performed with contrast to opacify the left ventricle and to improve the deliniation of the left ventricle endocardial borders. Staff Referring Physician: Rhona Mcgill Rn Navigator: Brandy Wheeler Attending Provider: Olesya Don Contrast/Agitated Saline Contrast/Ag. Saline: Definity Amount: 2.00 ml Administered By: Brandy Wheeler Existing IV Access: Yes IV Access Condition: patent with no signs of infiltration Summary 1. Left ventricular chamber dimension is normal. 2. Left ventricular systolic function is hyperdynamic, estimated at >70. 3. There is moderately increased left ventricular wall thickness. 4. The left ventricular diastolic function is grade I diastolic dysfunction. 5. Right ventricular chamber dimension is mildly enlarged. 6. There is mild aortic valve calcification. 7. There is mild mitral valve regurgitation. 8. There is mild tricuspid valve regurgitation. Left Ventricle Left ventricular chamber dimension is normal. Left ventricular systolic function is hyperdynamic, estimated at >70. There is moderately increased left ventricular wall thickness. The left ventricular diastolic function is grade I diastolic dysfunction. Right Ventricle Right ventricular chamber dimension is mildly enlarged. Right ventricular systolic function is normal. Left Atria Left atrial chamber dimension is normal. Right Atria Right atrial chamber dimension is normal. Atrial Septum Intact interatrial septum visualized by color flow imaging. Aortic Valve The aortic valve is trileaflet. There is no aortic valve stenosis. There is trace aortic valve regurgitation. There is mild aortic valve calcification. Pulmonic Valve The pulmonic valve is normal. There is no pulmonic valve stenosis. There is trace pulmonic regurgitation. Mitral Valve The mitral valve has normal leaflets. There is no mitral valve stenosis. There is mild mitral valve regurgitation. Tricuspid Valve The tricuspid valve leaflets are normal. There is no significant tricuspid valve stenosis. There is mild tricuspid valve regurgitation. Pericardium/Pleural The pericardium appears normal. There is trivial pericardial effusion. Inferior Vena Cava Normal inferior vena cava with >50% collapse upon inspiration consistent with normal right atrial pressure, 5 mmHg. Aorta The aortic root size at the sinus of Valsalva is normal. Left Ventricular Outflow Tract Name Value Normal LVOT 2D LVOT Diameter 1.9 cm Pulmonic Valve Name Value Normal PV Doppler PV Peak Velocity 109 cm/s PV Peak Gradient 5 mmHg Mitral Valve Name Value Normal MV Diastolic Function MV E Peak Velocity 69 cm/s MV A Peak Velocity 96 cm/s MV E/A 0.7 MV Decel Time (PW) 278 ms MV Annular TDI MV E/e' (Septal) 11.7 MV E/e' (Lateral) 9.0 MV E/e' (Average) 10.4 Tricuspid Valve Name Value Normal Estimated PAP/RSVP RA Pressure 5 mmHg <=5 TV Annular TDI TV Lateral Jackie s' Velocity 16.9 cm/s >=9.5 Aortic Valve Name Value Normal AV Regurgitation 2D LVOT Area 2.8 cm2 Ventricles Name Value Normal LV Dimensions 2D/MM IVS Diastolic Thickness (2D) 1.4 cm 0.6-1.0 LVID Diastole (2D) 2.1 cm 3.8-5.2 LVIW Diastolic Thickness (2D) 1.4 cm 0.6-0.9 LVID Systole (2D) 1.3 cm 2.2-3.5 LVOT Diameter 1.9 cm LV Mass (2D Cubed) 85.79 g 67.00-162.00 LV Mass Index (2D Cubed) 49 g/m2 43-95 Relative Wall Thickness (2D) 1.30 <=0.42 LV Fractional Shortening/Ejection Fraction 2D/MM LV Fractional Shortening (2D) 39 % 27-45 LV EF (2D Teichholz) 73 % Report Signatures
[2025-01-23] MEDS: LEVOTHYROXINE SODIUM 100 MCG TABLET PO (05:03)
[2025-01-23] MEDS: ACETAMINOPHEN 325 MG TABLET 650 MG PO (05:11)
[2025-01-23] MEDS: ENOXAPARIN 40 MG/0.4 ML SYRINGE SUB-Q (08:52)
[2025-01-23] MEDS: MEGESTROL ACETATE (*CHEMO) 40 MG TABLET PO ×3 (08:53→16:38)
[2025-01-23] MEDS: MULTIVITAMINS THERAPEUTIC TAB (*BKC) 1 TABLET PO (08:55)
[2025-01-23] MEDS: CALCIUM CARBONATE (OSCAL) 500 MG TABLET PO (08:55)
[2025-01-23] MEDS: PREGABALIN (*CRX) 50 MG CAPSULE 200 MG PO ×2 (08:55→16:38)
[2025-01-23] MEDS: PANTOPRAZOLE 40 MG TABLET PO (08:56)
[2025-01-23] MEDS: CYANOCOBALAMIN 500 MCG TABLET PO (08:56)
[2025-01-23] MEDS: METOPROLOL SUCCINATE EXT REL 25 MG TABCR PO (08:56)
[2025-01-23] MEDS: ASCORBIC ACID 500 MG TABLET 1000 MG PO (08:56)
[2025-01-23] MEDS: LORATADINE 10 MG TABLET PO (08:57)
[2025-01-23] MEDS: guaiFENesin 12 HR 600 MG TABCR PO ×2 (08:57→21:49)
[2025-01-23] MEDS: MONTELUKAST SODIUM 10 MG TABLET PO (08:57)
[2025-01-23] MEDS: ISOSORBIDE MONONITRATE 60 MG TAB.ER.24H PO (08:57)
[2025-01-23] MEDS: ATORVASTATIN 40 MG TABLET 80 MG PO (08:58)
[2025-01-23] MEDS: ASPIRIN 81 MG ENTERIC TABLET PO (08:58)
[2025-01-23] MEDS: FOLIC ACID 1 MG TABLET PO (08:58)
[2025-01-23] MEDS: LORazepam INJ (*CRX) 2 MG/ML VIAL 0.25 MG IV PUSH (10:28)
[2025-01-23] MEDS: AZITHROMYCIN IV 500 MG in SODIUM CHLORIDE 0.9% IV 250 ML IVPB (12:08)
[2025-01-23] MEDS: PERFLUTREN LIPID MICROSPHERES 1.5 ML VIAL DILUTED TO 10 ML TOTAL VOLUME IV PUSH (12:10)
--- NOTE | 2025-01-23 12:21 | IVDEFINITY ---
Prior to administration of IV Definity the patient was educated on the risks and benefits of the imaging enhancing agent including potential adverse side effects. The patient verbalized understanding. Allergies were verified. No exclusion criteria were identified and at least one of the following inclusion criteria were met: 1) physician request, 2) patient technically difficult to image (per the [place] [employer] guidelines of two or more segments not discernable within the apical view), or 3) questionable left ventricular function. ?
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
[2025-01-23] MEDS: IPRATROPIUM BR 0.02% INH SOLN 0.5 MG/2.5 ML VIAL INHALATION ×2 (13:42→20:33)
[2025-01-23] MEDS: SODIUM CHLOR 3% 15 ML NEB (RESPIRATORY THERAPY) 3 ML INHALATION (13:42)
--- NOTE | 2025-01-23 14:27 | PCPTNOTE ---
Attempted PT evaluation, pt's caregiver is present and declined for pt to participate in therapy at this time. Per pt's caregiver, pt was given medication that made pt drowsy. Pt's nurse aware.
[2025-01-23] MEDS: cefTRIAXone 1 GM in SODIUM CHLORIDE 0.9% IV 50 ML 100 ML IVPB (15:48)
--- NOTE | 2025-01-23 16:03 | P.PNIM_ITS ---
Progress Note: A&P Assessment and Plan (1) Acute respiratory failure with hypoxia: Code(s): J96.01 - Acute respiratory failure with hypoxia Status: Acute Assessment and Plan: NT proBNP normal. Still on 2L O2 Wean for sats >92% -CT r/o PE today -TTE showed hyperdynamic LVEF >70% --Pulmonary consult -Goals of care: No Bipap, No intubation -High risk for respiratory decompensation but no plan for advanced airways (2) COPD exacerbation: Code(s): J44.1 - Chronic obstructive pulmonary disease with (acute) exacerbation Status: Acute Assessment and Plan: Former smoker with recent exposure to viral illness, coarse cough, shortness of breath. No hypoxia. Viral PCR negative. No improvement with recent steroid course outpatient. Given age, will treat inpatient for COPD exacerbation - CXR showed clear lungs, repeat chest x-ray unchanged - Duonebs scheduled but not tolerating well due to severe claustrophobia, changed to albuterol q4 - Continue IV methylprednisone 60mg IV q6> 40 q8 - started on ceftriaxone and azithromycin on 01/20 for exacerbation, continue for now - Mucinex scheduled - continue home meds: Trelegy substituted for Breztri --Treatment of respiratory failure, scheduled --VBG showed respiratory alkalosis --Pulmonary consulted, appreciate recommendations: Vest treatments when tolerating (3) HTN (hypertension): Qualifiers: Hypertension type: primary hypertension Qualified Code(s): I10 - Essential (primary) hypertension Code(s): I10 - Essential (primary) hypertension Status: Chronic Assessment and Plan: - chronic, currently 162/69 - continue home medications: Lisinopril, Metoprolol - monitor (4) Anxiety: Code(s): F41.9 - Anxiety disorder, unspecified Status: Acute Assessment and Plan: Severe anxiety, not tolerating breathing treatments due to claustrophobia. Family gives them while she's asleep and holds them away from her face --Ativan 0.25 q6 prn IV since not taking PO Plan Diet: Heart healthy GI Prophylaxis: N/a DVT Prophylaxis: SCDs IV fluids: LR at 150 mL/hr x1L Lines/Tubes: peripheral IV Code Status: full code Time Spent With Patient Time: 57 minutes Subjective Date/time seen: 01/23/25 16:03 Interval history: Severe anxiety and not tolerating breathing treatments. Heart rate 150's. Wants to get out of bed. overall lungs sound more clear. Heart rate improved and rested well with IV ativan Review of Systems Review of Systems: All systems reviewed & are unremarkable except as noted in HPI and below (Limited due to baseline disorientation) Exam Narrative: General - Awake and alert. No acute distress Eyes - PERRLA, EOM intact ENT - No thrush, No erythema Neck - No noticeable or palpable swelling Lymph Nodes - No lymphadenopathy Cardiovascular - RRR no m/r/g, no JVD Lungs: End expiratory wheezing, moving more air Skin - Skin warm and dry, no wounds or rashes Abdomen - Normal bowel sounds, abdomen soft and nontender Extremities - No edema, cyanosis or clubbing Musculoskeletal - 3/5 strength, normal range of motion, no swollen or erythematous joints. Neurological ? Alert and oriented x 1, CN 2-12 grossly intact. Psych: Very anxious and upset Objective Data Vital Signs Vital Signs: Vital Signs - 24 hr 01/22/25 19:56 01/22/25 20:00 01/22/25 20:39 Temperature Pulse Rate 83 Respiratory Rate Blood Pressure Pulse Oximetry 99 97 Oxygen Delivery Nasal Cannula Nasal Cannula Oxygen Flow Rate 2 2 01/22/25 20:49 01/23/25 00:00 01/23/25 03:41 Temperature 97.6 F 97.6 F Pulse Rate 80 76 78 Respiratory Rate 20 20 Blood Pressure 144/70 H 166/74 H Pulse Oximetry 99 94 Oxygen Delivery Oxygen Flow Rate 01/23/25 04:00 01/23/25 08:56 01/23/25 08:58 Temperature Pulse Rate 84 84 Respiratory Rate Blood Pressure Pulse Oximetry 98 Oxygen Delivery Nasal Cannula Oxygen Flow Rate 2 01/23/25 08:58 01/23/25 08:58 01/23/25 12:02 Temperature Pulse Rate 84 83 Respiratory Rate 20 Blood Pressure Pulse Oximetry 98 Oxygen Delivery Nasal Cannula Oxygen Flow Rate 2 01/23/25 13:43 01/23/25 13:43 01/23/25 13:53 Temperature Pulse Rate 78 81 Respiratory Rate 16 18 Blood Pressure Pulse Oximetry 93 Oxygen Delivery Room Air Oxygen Flow Rate 01/23/25 14:00 Temperature 98.4 F Pulse Rate 79 Respiratory Rate 16 Blood Pressure 148/65 H Pulse Oximetry 94 Oxygen Delivery Oxygen Flow Rate Intake/Output Intake/Output: Intake & Output 01/20/25 01/21/25 01/22/25 01/23/25 23:59 23:59 23:59 23:59 Intake Total 290 1910 1718 1288 Output Total 600 1300 950 Balance 290 1310 418 338 Meds/Results Medications: Active Medications Generic Name Dose Route Start Last Admin Trade Name Freq PRN Reason Stop Dose Admin Acetaminophen 650 mg 01/20/25 15:32 01/23/25 05:11 Acetaminophen 325 Mg Tablet PO 650 mg Q6H PRN Administration Mild Pain (1-3) or Fever Ascorbic Acid 1,000 mg 01/21/25 09:00 01/23/25 08:56 Ascorbic Acid 500 Mg Tablet PO 1,000 mg DAILY SHAWNA Administration Aspirin 81 mg 01/21/25 09:00 01/23/25 08:58 Aspirin 81 Mg Enteric Tablet PO 81 mg DAILY SHAWNA Administration Atorvastatin Calcium 80 mg 01/21/25 09:00 01/23/25 08:58 Atorvastatin 40 Mg Tablet PO 80 mg DAILY SHAWNA Administration Bisacodyl 10 mg 01/23/25 16:00 Bisacodyl 10 Mg Suppository RECTAL DAILY PRN Constipation Calcium Carbonate 500 mg 01/21/25 09:00 01/23/25 08:55 Calcium Carbonate (Oscal) 500 Mg Tablet PO 500 mg DAILY [facility] Administration Calcium Polycarbophil 625 mg 01/21/25 09:00 01/23/25 08:58 Calcium Polycarbophil 625 Mg Tablet PO 625 mg DAILY SHAWNA Administration Cyanocobalamin 500 mcg 01/21/25 09:00 01/23/25 08:56 Cyanocobalamin 500 Mcg Tablet PO 500 mcg DAILY SHAWNA Administration Docusate Sodium 100 mg 01/20/25 21:03 Docusate Sodium 100 Mg Capsule PO DAILY PRN constipation Enoxaparin Sodium 40 mg 01/22/25 15:40 01/23/25 08:52 Enoxaparin 40 Mg/0.4 Ml Syringe SUB-Q 40 mg DAILY SHAWNA Administration Fluticasone/Umeclidinium/Vilanterol 1 puff 01/21/25 13:25 01/23/25 08:57 Fluticasone/Umeclidin/Vilanter 100-62.5-25 Mcg Ellipta INHALATION Not Given DAILYRT SHAWNA Folic Acid 1 mg 01/21/25 09:00 01/23/25 08:58 Folic Acid 1 Mg Tablet PO 1 mg DAILY SHAWNA Administration Guaifenesin 600 mg 01/20/25 21:00 01/23/25 08:57 Guaifenesin 12 Hr 600 Mg Tabcr PO 600 mg Q12HR SHAWNA Administration Ceftriaxone Sodium 1 gm/ 50 mls @ 100 mls/hr 01/20/25 16:00 01/23/25 15:48 Sodium Chloride IVPB 01/25/25 16:29 100 mls/hr Q24H SHAWNA Administration Ipratropium [place] 0.5 mg 01/20/25 20:00 01/23/25 13:42 Ipratropium Br 0.02% Inh Soln 0.5 Mg/2.5 Ml Vial INHALATION 0.5 mg Q6HRT SHAWNA Administration Isosorbide Mononitrate 60 mg 01/21/25 09:00 01/23/25 08:57 Isosorbide Mononitrate 60 Mg Tab.Er.24h PO 60 mg DAILY SHAWNA Administration Levalbuterol HCl 1.25 mg 01/21/25 18:22 Levalbuterol Neb 1.25 Mg/3 Ml INHALATION Q6HRT PRN shortness of breath Levothyroxine Sodium 100 mcg 01/21/25 06:30 01/23/25 05:03 Levothyroxine Sodium 100 Mcg Tablet PO 100 mcg DAILY@0630 SHAWNA Administration Lisinopril 20 mg 01/21/25 09:00 01/23/25 08:55 Lisinopril 20 Mg Tablet PO 20 mg DAILY SHAWNA Administration Loratadine 10 mg 01/21/25 09:00 01/23/25 08:57 Loratadine 10 Mg Tablet PO 10 mg DAILY SHAWNA Administration Lorazepam 0.25 mg 01/23/25 10:17 01/23/25 10:28 Lorazepam Inj (*Crx) 2 Mg/Ml Vial IV PUSH 01/26/25 10:16 0.25 mg Q6H PRN Administration Anxiety Megestrol Acetate 40 mg 01/21/25 09:00 01/23/25 12:06 Megestrol Acetate (*Chemo) 40 Mg Tablet PO 40 mg TID SHAWNA Administration Methylprednisolone Sodium Succinate 40 mg 01/22/25 22:00 01/23/25 13:18 Methylprednisolone Sod Succ 40 Mg Vial IV PUSH 40 mg Q8HR SHAWNA Administration Metoprolol Succinate 25 mg 01/21/25 09:00 01/23/25 08:56 Metoprolol Succinate Ext Rel 25 Mg Tabcr PO 25 mg DAILY SHAWNA Administration Montelukast Sodium 10 mg 01/21/25 09:00 01/23/25 08:57 Montelukast Sodium 10 Mg Tablet PO 10 mg DAILY SHAWNA Administration Multivitamins Therapeutic 1 tablet 01/21/25 09:00 01/23/25 08:55 Multivitamins Therapeutic Tab (*Bkc) PO 1 tablet DAILY SHAWNA Administration Ondansetron HCl 4 mg 01/20/25 15:32 Ondansetron Hcl Odt 4 Mg Tablet PO Q6H PRN Nausea And Vomiting Pantoprazole Sodium 40 mg 01/21/25 09:00 01/23/25 08:56 Pantoprazole 40 Mg Tablet PO 40 mg DAILY SHAWNA Administration Polyethylene Glycol 17 gm 01/23/25 16:00 Polyethylene Glycol 3350 17 Gm Powd.Pack PO QAM PRN constipation Pregabalin 200 mg 01/20/25 21:15 01/23/25 08:55 Pregabalin (*Crx) 50 Mg Capsule PO 200 mg BID SHAWNA Administration Quetiapine Fumarate 25 mg 01/20/25 21:55 01/22/25 20:12 Quetiapine Fumarate 25 Mg Tablet PO 25 mg HS SHAWNA Administration Radiology Results: ITS Impressions Chest X-Ray 01/21/25 18:28 IMPRESSION: No acute cardiopulmonary process. Chest CTA 01/22/25 17:34 IMPRESSION: No pulmonary embolus. No thoracic aortic dissection. Panlobular emphysematous disease, as detailed above. Quality VTE Prophylaxis VTE prophylaxis: mechanical ordered Hospitalist MIPS Advance Care Plan I have confirmed that the patient's Advanced Care Plan is present, code status is documented, or surrogate decision maker is listed in patient medical record.: Yes Medication Reconciliation I have utilized all available resources to obtain, update and review the patients current medications (includes all prescriptions, OTC, herbals, cannabis, and nutritional supplements).: Yes
[2025-01-24] VITALS (15 sets, daily range): BP systolic 165–180; BP diastolic 80–94; PULSE 76–100; RESP 18–20; TEMP 36.4–36.9; O2SAT 92–94
[2025-01-24] MEDS: IPRATROPIUM BR 0.02% INH SOLN 0.5 MG/2.5 ML VIAL INHALATION (02:45)
[2025-01-24] MEDS: LEVOTHYROXINE SODIUM 100 MCG TABLET PO (06:58)
--- NOTE | 2025-01-24 07:23 | PM.IMPN ---
Progress Note: A&P Assessment and Plan (1) Acute respiratory failure with hypoxia: Code(s): J96.01 - Acute respiratory failure with hypoxia Status: Acute Assessment and Plan: NT proBNP normal. Still on 2L O2 Wean for sats >92% -TTE showed hyperdynamic LVEF >70% --Pulmonary consulted, appreciate recommendations 01/22 CTA No pulmonary embolus. No thoracic aortic dissection. Panlobular emphysematous disease, as detailed above. -Goals of care: No Bipap, No intubation -High risk for respiratory decompensation but no plan for advanced airways (2) COPD exacerbation: Code(s): J44.1 - Chronic obstructive pulmonary disease with (acute) exacerbation Status: Acute Assessment and Plan: Former smoker with recent exposure to viral illness, coarse cough, shortness of breath. No hypoxia. Viral PCR negative. No improvement with recent steroid course outpatient. Given age, will treat inpatient for COPD exacerbation. 01/24 VBG showed respiratory alkalosis - CXR showed clear lungs, repeat chest x-ray unchanged - Duonebs scheduled but not tolerating well due to severe claustrophobia, changed to albuterol q4 - Continue IV methylprednisone 60mg IV q6> 40 q8 - started on ceftriaxone and azithromycin on 01/20 for exacerbation, continue for now - Mucinex scheduled - continue home meds: Trelegy substituted for Breztri, continue when able. ipratropium nebs if refusing if will take them --Xopenex prn --Treatment of respiratory failure, scheduled --Pulmonary consulted, appreciate recommendations Vest treatments when tolerating (3) HTN (hypertension): Qualifiers: Hypertension type: primary hypertension Qualified Code(s): I10 - Essential (primary) hypertension Code(s): I10 - Essential (primary) hypertension Status: Chronic Assessment and Plan: - chronic, currently 162/69 - continue home medications: Lisinopril, Metoprolol - monitor (4) Anxiety: Code(s): F41.9 - Anxiety disorder, unspecified Status: Acute Assessment and Plan: Severe anxiety, not tolerating breathing treatments due to claustrophobia. Family gives them while she's asleep and holds them away from her face --Ativan 0.25 q6 prn IV since not taking PO --Seroquel 12.5mg daily prn when taking po (5) SVT (supraventricular tachycardia): Code(s): I47.10 - Supraventricular tachycardia, unspecified Status: Acute Assessment and Plan: Metoprolol 25mg daily>change to 12.5 q6 Continue to monitor on tele and titrate as able Anxiety may be contributing Plan Diet: Heart healthy GI Prophylaxis: N/a DVT Prophylaxis: SCDs IV fluids: LR at 150 mL/hr x1L Lines/Tubes: peripheral IV Code Status: full code Time Spent With Patient Time: 57 minutes Subjective Date/time seen: 01/24/25 09:40 Interval history: Not taking breathing treatments due to claustrophobia. Won't take them if they touch her face. RT was able to get her to take her inhaler this morning, had trouble yesterday. Her daughter asked us to give breathing treatments only while asleep, so changing to hs and prn Discussed trying a low dose of seroquel during the day. Also using IV ativan intermittently but discussed that it's only a short term solution Increasing metoprolol dose for frequent runs of SVT. Review of Systems Review of Systems: All systems reviewed & are unremarkable except as noted in HPI and below (Limited due to baseline disorientation) Exam Narrative: General - Awake and alert. No acute distress Eyes - PERRLA, EOM intact ENT - No thrush, No erythema Neck - No noticeable or palpable swelling Lymph Nodes - No lymphadenopathy Cardiovascular - RRR no m/r/g, no JVD Lungs: End expiratory wheezing, moving more air Skin - Skin warm and dry, no wounds or rashes Abdomen - Normal bowel sounds, abdomen soft and nontender Extremities - No edema, cyanosis or clubbing Musculoskeletal - 3/5 strength, normal range of motion, no swollen or erythematous joints. Neurological ? Alert and oriented x 1, CN 2-12 grossly intact. Psych: Very anxious and upset Objective Data Vital Signs Vital Signs: Vital Signs - 24 hr 01/23/25 08:56 01/23/25 08:58 01/23/25 08:58 Temperature Pulse Rate 84 Respiratory Rate 20 Blood Pressure Pulse Oximetry 98 98 Oxygen Delivery Nasal Cannula Nasal Cannula Oxygen Flow Rate 2 2 01/23/25 08:58 01/23/25 12:02 01/23/25 13:43 Temperature Pulse Rate 84 83 Respiratory Rate Blood Pressure Pulse Oximetry 93 Oxygen Delivery Room Air Oxygen Flow Rate 07/23/25 13:43 01/23/25 13:53 01/23/25 14:00 Temperature 98.4 F Pulse Rate 78 81 79 Respiratory Rate 16 18 16 Blood Pressure 148/65 H Pulse Oximetry 94 Oxygen Delivery Oxygen Flow Rate 01/23/25 16:02 01/23/25 20:00 01/23/25 20:00 Temperature Pulse Rate 93 79 Respiratory Rate Blood Pressure Pulse Oximetry Oxygen Delivery Room Air Oxygen Flow Rate 01/23/25 22:00 01/24/25 00:00 01/24/25 04:00 Temperature 97.6 F Pulse Rate 78 78 80 Respiratory Rate 18 Blood Pressure 163/85 H Pulse Oximetry 94 Oxygen Delivery Oxygen Flow Rate 01/24/25 06:00 Temperature 97.5 F L Pulse Rate 80 Respiratory Rate 18 Blood Pressure 167/80 H Pulse Oximetry 94 Oxygen Delivery Oxygen Flow Rate Intake/Output Intake/Output: Intake & Output 01/21/25 01/22/25 01/23/25 01/24/25 23:59 23:59 23:59 23:59 Intake Total 1910 1718 1746 Output Total 600 1300 1650 1850 Balance 1310 418 96 -1850 Meds/Results Medications: Active Medications Generic Name Dose Route Start Last Admin Trade Name Freq PRN Reason Stop Dose Admin Acetaminophen 650 mg 01/20/25 15:32 01/23/25 05:11 Acetaminophen 325 Mg Tablet PO 650 mg Q6H PRN Administration Mild Pain (1-3) or Fever Ascorbic Acid 1,000 mg 01/21/25 09:00 01/23/25 08:56 Ascorbic Acid 500 Mg Tablet PO 1,000 mg DAILY SHAWNA Administration Aspirin 81 mg 01/21/25 09:00 01/23/25 08:58 Aspirin 81 Mg Enteric Tablet PO 81 mg DAILY SHAWNA Administration Atorvastatin Calcium 80 mg 01/21/25 09:00 01/23/25 08:58 Atorvastatin 40 Mg Tablet PO 80 mg DAILY SHAWNA Administration Bisacodyl 10 mg 01/23/25 16:00 Bisacodyl 10 Mg Suppository RECTAL DAILY PRN Constipation Calcium Carbonate 500 mg 01/21/25 09:00 01/23/25 08:55 Calcium Carbonate (Oscal) 500 Mg Tablet PO 500 mg DAILY SHAWNA Administration Calcium Polycarbophil 625 mg 01/21/25 09:00 01/23/25 08:58 Calcium Polycarbophil 625 Mg Tablet PO 625 mg DAILY SHAWNA Administration Cyanocobalamin 500 mcg 01/21/25 09:00 01/23/25 08:56 Cyanocobalamin 500 Mcg Tablet PO 500 mcg DAILY SHAWNA Administration Docusate Sodium 100 mg 01/20/25 21:03 Docusate Sodium 100 Mg Capsule PO DAILY PRN constipation Enoxaparin Sodium 40 mg 01/22/25 15:40 01/23/25 08:52 Enoxaparin 40 Mg/0.4 Ml Syringe SUB-Q 40 mg DAILY SHAWNA Administration Fluticasone/Umeclidinium/Vilanterol 1 puff 01/21/25 13:25 01/23/25 08:57 Fluticasone/Umeclidin/Vilanter 100-62.5-25 Mcg Ellipta INHALATION Not Given DAILYRT [facility] Folic Acid 1 mg 01/21/25 09:00 01/23/25 08:58 Folic Acid 1 Mg Tablet PO 1 mg DAILY SHAWNA Administration Guaifenesin 600 mg 01/20/25 21:00 01/23/25 21:49 Guaifenesin 12 Hr 600 Mg Tabcr PO 600 mg Q12HR SHAWNA Administration Ceftriaxone Sodium 1 gm/ 50 mls @ 100 mls/hr 01/20/25 16:00 01/23/25 15:48 Sodium Chloride IVPB 01/25/25 16:29 100 mls/hr Q24H SHAWNA Administration Ipratropium [place] 0.5 mg 01/20/25 20:00 01/24/25 02:45 Ipratropium Br 0.02% Inh Soln 0.5 Mg/2.5 Ml Vial INHALATION 0.5 mg Q6HRT SHAWNA Administration Isosorbide Mononitrate 60 mg 01/21/25 09:00 01/23/25 08:57 Isosorbide Mononitrate 60 Mg Tab.Er.24h PO 60 mg DAILY SHAWNA Administration Levalbuterol HCl 1.25 mg 01/21/25 18:22 Levalbuterol Neb 1.25 Mg/3 Ml INHALATION Q6HRT PRN shortness of breath Levothyroxine Sodium 100 mcg 01/21/25 06:30 01/24/25 06:58 Levothyroxine Sodium 100 Mcg Tablet PO 100 mcg DAILY@0630 SHAWNA Administration Lisinopril 20 mg 01/21/25 09:00 01/23/25 08:55 Lisinopril 20 Mg Tablet PO 20 mg DAILY SHAWNA Administration Loratadine 10 mg 01/21/25 09:00 01/23/25 08:57 Loratadine 10 Mg Tablet PO 10 mg DAILY SHAWNA Administration Lorazepam 0.25 mg 01/23/25 10:17 01/23/25 10:28 Lorazepam Inj (*Crx) 2 Mg/Ml Vial IV PUSH 01/26/25 10:16 0.25 mg Q6H PRN Administration Anxiety Megestrol Acetate 40 mg 01/21/25 09:00 01/23/25 16:38 Megestrol Acetate (*Chemo) 40 Mg Tablet PO 40 mg TID SHAWNA Administration Methylprednisolone Sodium Succinate 40 mg 01/22/25 22:00 01/24/25 06:59 Methylprednisolone Sod Succ 40 Mg Vial IV PUSH 40 mg Q8HR SHAWNA Administration Metoprolol Succinate 25 mg 01/21/25 09:00 01/23/25 08:56 Metoprolol Succinate Ext Rel 25 Mg Tabcr PO 25 mg DAILY SHAWNA Administration Montelukast Sodium 10 mg 01/21/25 09:00 01/23/25 08:57 Montelukast Sodium 10 Mg Tablet PO 10 mg DAILY SHAWNA Administration Multivitamins Therapeutic 1 tablet 01/21/25 09:00 01/23/25 08:55 Multivitamins Therapeutic Tab (*Bkc) PO 1 tablet DAILY SHAWNA Administration Ondansetron HCl 4 mg 01/20/25 15:32 Ondansetron Hcl Odt 4 Mg Tablet PO Q6H PRN Nausea And Vomiting Pantoprazole Sodium 40 mg 01/21/25 09:00 01/23/25 08:56 Pantoprazole 40 Mg Tablet PO 40 mg DAILY SHAWNA Administration Polyethylene Glycol 17 gm 01/23/25 16:00 Polyethylene Glycol 3350 17 Gm Powd.Pack PO QAM PRN constipation Pregabalin 200 mg 01/20/25 21:15 01/23/25 16:38 Pregabalin (*Crx) 50 Mg Capsule PO 200 mg BID SHWANA Administration Quetiapine Fumarate 25 mg 01/20/25 21:55 01/23/25 21:49 Quetiapine Fumarate 25 Mg Tablet PO 25 mg HS SHAWNA Administration Radiology Results: ITS Impressions Chest X-Ray 01/21/25 18:28 IMPRESSION: No acute cardiopulmonary process. Chest CTA 01/22/25 17:34 IMPRESSION: No pulmonary embolus. No thoracic aortic dissection. Panlobular emphysematous disease, as detailed above. Quality VTE Prophylaxis VTE prophylaxis: mechanical ordered Hospitalist MIPS Advance Care Plan I have confirmed that the patient's Advanced Care Plan is present, code status is documented, or surrogate decision maker is listed in patient medical record.: Yes Medication Reconciliation I have utilized all available resources to obtain, update and review the patients current medications (includes all prescriptions, OTC, herbals, cannabis, and nutritional supplements).: Yes
[2025-01-24] MEDS: FLUTICASONE/UMECLIDIN/VILANTER 100-62.5-25 MCG ELLIPTA 1 PUFF INHALATION (07:50)
--- NOTE | 2025-01-24 07:58 | PCRCNOTE ---
Pt refused breathing treatment at this time, therapist tried to hold mask to patients face. Patient pushed mask away and would not take stated no, no, no she does not want it. Pt did do inhaler .
[2025-01-24] MEDS: ATORVASTATIN 40 MG TABLET 80 MG PO (09:35)
[2025-01-24] MEDS: PREGABALIN (*CRX) 50 MG CAPSULE 200 MG PO ×2 (09:35→16:42)
[2025-01-24] MEDS: ASPIRIN 81 MG ENTERIC TABLET PO (09:35)
[2025-01-24] MEDS: LORATADINE 10 MG TABLET PO (09:35)
[2025-01-24] MEDS: ENOXAPARIN 40 MG/0.4 ML SYRINGE SUB-Q (09:35)
[2025-01-24] MEDS: ASCORBIC ACID 500 MG TABLET 1000 MG PO (09:35)
[2025-01-24] MEDS: MONTELUKAST SODIUM 10 MG TABLET PO (09:36)
[2025-01-24] MEDS: FOLIC ACID 1 MG TABLET PO (09:36)
[2025-01-24] MEDS: guaiFENesin 12 HR 600 MG TABCR PO ×2 (09:36→20:20)
[2025-01-24] MEDS: CYANOCOBALAMIN 500 MCG TABLET PO (09:36)
[2025-01-24] MEDS: METOPROLOL SUCCINATE EXT REL 25 MG TABCR PO (09:36)
[2025-01-24] MEDS: MULTIVITAMINS THERAPEUTIC TAB (*BKC) 1 TABLET PO (09:36)
[2025-01-24] MEDS: PANTOPRAZOLE 40 MG TABLET PO (09:36)
[2025-01-24] MEDS: CALCIUM CARBONATE (OSCAL) 500 MG TABLET PO (09:36)
[2025-01-24] MEDS: MEGESTROL ACETATE (*CHEMO) 40 MG TABLET PO ×3 (09:37→16:42)
[2025-01-24] MEDS: ISOSORBIDE MONONITRATE 60 MG TAB.ER.24H PO (09:38)
[2025-01-24] MEDS: LORazepam INJ (*CRX) 2 MG/ML VIAL 0.25 MG IV PUSH ×2 (09:39→18:20)
--- NOTE | 2025-01-24 09:55 | PCPTNOTE ---
attempted PT eval, per RN pt's HR recently in 170s and given Ativan, pt is resting currently, will follow as appropriate
--- NOTE | 2025-01-24 10:06 | PCOTNOTE ---
Attempted to see pt for occupational therapy evaluation however pt just received ativan due to a HR in the 170s. Will continue to follow and will see when medically appropriate.
[2025-01-24 11:16] LABS: Hematocrit 40.3 % (37.0-47.0); Hemoglobin 13.3 g/dL (12.0-15.0); Immature Granulocyte Percent A 0.6 % (0-0.5); Lymphocytes Absolute Auto 1.02 K/mm3 (0.9-3.2); Mean Corpuscular HGB Conc 33.0 g/dl (32-36); Mean Corpuscular Hemoglobin 28.5 pg (26-34); Mean Corpuscular Volume 86.5 fl (80-100); Nucleated Red Blood Cells Absolute Auto 0.000 K/mm3 (0.0-0.012); Nucleated Red Blood Cells Perc 0.0 % (0.0-0.2); Platelet Count Result 288 k/mm3 (150-375); Red Blood Count 4.66 M/mm3 (4.2-5.4); White Blood Count 13.5 K/mm3 (4.5-10.0)
[2025-01-24 11:40] LABS: Alanine Aminotransferase 28 U/L (6-35); Albumin Level 3.6 g/dL (3.5-5.1); Alkaline Phosphatase 68 U/L (38-126); Anion Gap 5 mmol/L (4-12); Aspartate Amino Transferase 29 U/L (14-36); Bilirubin,Total 0.3 mg/dL (0.2-1.3); Blood Urea Nitrogen 22 mg/dL (7-17); Calcium 9.0 mg/dL (8.4-10.2); Carbon Dioxide 31 mmol/L (22-30); Chloride 98 mmol/L (98-107); Estimated Glomerular Filt Rate > 60; Glucose 135 mg/dL (65-110); Potassium 3.7 mmol/L (3.4-5.0); Sodium 134 mmol/L (137-145); Total Protein 6.5 g/dL (6.3-8.2)
[2025-01-24] MEDS: METOPROLOL TARTRATE 12.5 MG TABLET PO ×3 (12:12→23:45)
[2025-01-24] MEDS: cefTRIAXone 1 GM in SODIUM CHLORIDE 0.9% IV 50 ML 100 ML IVPB (16:42)
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
[2025-01-25] VITALS (11 sets, daily range): BP systolic 149–169; BP diastolic 67–81; PULSE 77–171; RESP 18–20; TEMP 36.2–36.6; O2SAT 93–96
[2025-01-25] MEDS: METOPROLOL TARTRATE 12.5 MG TABLET PO (05:30)
[2025-01-25] MEDS: LEVOTHYROXINE SODIUM 100 MCG TABLET PO (05:30)
[2025-01-25] MEDS: FLUTICASONE/UMECLIDIN/VILANTER 100-62.5-25 MCG ELLIPTA 1 PUFF INHALATION (07:58)
[2025-01-25] MEDS: METOPROLOL SUCCINATE EXT REL 50 MG TABCR PO (09:03)
[2025-01-25] MEDS: PREGABALIN (*CRX) 50 MG CAPSULE 200 MG PO ×2 (09:03→17:20)
[2025-01-25] MEDS: ASCORBIC ACID 500 MG TABLET 1000 MG PO (09:04)
[2025-01-25] MEDS: ACETAMINOPHEN 325 MG TABLET 650 MG PO (09:04)
[2025-01-25] MEDS: FOLIC ACID 1 MG TABLET PO (09:04)
[2025-01-25] MEDS: guaiFENesin 12 HR 600 MG TABCR PO ×2 (09:04→20:34)
[2025-01-25] MEDS: ATORVASTATIN 40 MG TABLET 80 MG PO (09:04)
[2025-01-25] MEDS: MONTELUKAST SODIUM 10 MG TABLET PO (09:04)
[2025-01-25] MEDS: MEGESTROL ACETATE (*CHEMO) 40 MG TABLET PO (09:04)
[2025-01-25] MEDS: CALCIUM CARBONATE (OSCAL) 500 MG TABLET PO (09:05)
[2025-01-25] MEDS: ASPIRIN 81 MG ENTERIC TABLET PO (09:05)
[2025-01-25] MEDS: CYANOCOBALAMIN 500 MCG TABLET PO (09:05)
[2025-01-25] MEDS: ISOSORBIDE MONONITRATE 60 MG TAB.ER.24H PO (09:05)
[2025-01-25] MEDS: MULTIVITAMINS THERAPEUTIC TAB (*BKC) 1 TABLET PO (09:05)
[2025-01-25] MEDS: PANTOPRAZOLE 40 MG TABLET PO (09:05)
[2025-01-25] MEDS: LORATADINE 10 MG TABLET PO (09:05)
[2025-01-25] MEDS: ENOXAPARIN 40 MG/0.4 ML SYRINGE SUB-Q (09:24)
[2025-01-25] MEDS: QUEtiapine FUMARATE 12.5 MG TABLET PO (09:28)
--- NOTE | 2025-01-25 11:36 | PCPTNOTE ---
attempted PT eval, pt too tired to participate after subjective exam and declined getting out of bed, will continue to attempt as pt is alert
--- NOTE | 2025-01-25 11:59 | PCNFU ---
Nutrition Follow-Up Complete: Inability to meet nutrition needs PO related to poor appetite as evidenced by need for supplemental PEG tube feedings Meet estimated nutrition needs - Progressing. Meeting needs with PO intake and tube feeds Goal: Pt current nutrition is Regular diet. Ensure +HP BID (350 kcal, 20 g protein); supplemental TF Jevity 1.5 Bolus 240 ml BID, 100 ml water flushes BID. Nutrition recommendation: No new recommendations. Continue current nutrition orders. Agree with orders Last recorded weight is 72 kg. Bowel Motility: +1 BM 01/25 Labs Reviewed: Na 134, BUN 22, Cre 0.68, Glu 135 Meds Noted: Megace, protonix, folic acid, Vit C Skin: WNL Additional Notes: Pt getting supplemental TF BID. Never eats breakfast at home; intakes running 25-100%. Slept through breakfast today. Spoke to daughter. Jevity 1.5 240 ml BID provides 710 kcal, 30 g protein, 360 ml free water. Adequate for about ~50% needs. Continue to monitor Monitoring intakes, weights, labs, tube feeding tolerance, output, plan of care Follow up Tuesday/Tuesday
--- NOTE | 2025-01-25 12:21 | PCOTNOTE ---
attempted OT evaluation, however, pt was too tired to participate after subjective exam and declined getting out of bed, will continue to attempt as pt is alert and able.
--- NOTE | 2025-01-25 14:30 | PCPTNOTE ---
attempted PT eval again, pt declined again, informed on the importance of therapy and getting out of bed to stay strong and mobile, pt still declined, DC'ing orders d/t pt constant declining, spoke with QUINTEN Jordan about orders being DC'ed
[2025-01-25] MEDS: MEGESTROL ACETATE (*CHEMO) ORAL SUSP 40 MG/ML SYR PO ×2 (14:33→17:22)
--- NOTE | 2025-01-25 15:50 | PM.IMPN ---
Progress Note: A&P Assessment and Plan (1) Acute respiratory failure with hypoxia: Code(s): J96.01 - Acute respiratory failure with hypoxia Status: Acute Assessment and Plan: NT proBNP normal. Still on 2L O2 Wean for sats >92% -TTE showed hyperdynamic LVEF >70% --Pulmonary consulted, appreciate recommendations 01/22 CTA No pulmonary embolus. No thoracic aortic dissection. Panlobular emphysematous disease, as detailed above. -Goals of care: No Bipap, No intubation -High risk for respiratory decompensation but no plan for advanced airways (2) COPD exacerbation: Code(s): J44.1 - Chronic obstructive pulmonary disease with (acute) exacerbation Status: Acute Assessment and Plan: Former smoker with recent exposure to viral illness, coarse cough, shortness of breath. No hypoxia. Viral PCR negative. No improvement with recent steroid course outpatient. Given age, will treat inpatient for COPD exacerbation. 01/24 VBG showed respiratory alkalosis - CXR showed clear lungs, repeat chest x-ray unchanged - Duonebs scheduled but not tolerating well due to severe claustrophobia, changed to albuterol q4 - Continue IV methylprednisone 60mg IV q6> 40 q8 - started on ceftriaxone and azithromycin on 01/20 for exacerbation, continue for now - Mucinex scheduled - continue home meds: Trelegy substituted for Breztri, continue when able. ipratropium nebs if refusing if will take them --Xopenex prn --Treatment of respiratory failure, scheduled --Pulmonary consulted, appreciate recommendations Vest treatments when tolerating (3) HTN (hypertension): Qualifiers: Hypertension type: primary hypertension Qualified Code(s): I10 - Essential (primary) hypertension Code(s): I10 - Essential (primary) hypertension Status: Chronic Assessment and Plan: - chronic, currently 162/69 - continue home medications: Lisinopril, Metoprolol - monitor (4) Anxiety: Code(s): F41.9 - Anxiety disorder, unspecified Status: Acute Assessment and Plan: Severe anxiety, not tolerating breathing treatments due to claustrophobia. Family gives them while she's asleep and holds them away from her face --Ativan 0.25 q6 prn IV since not taking PO --Seroquel 12.5mg daily prn when taking po (5) SVT (supraventricular tachycardia): Code(s): I47.10 - Supraventricular tachycardia, unspecified Status: Acute Assessment and Plan: Metoprolol 25mg daily>changed to 12.5 q6 with improvement--change to 50 xl daily Continue to monitor on tele and titrate as able Anxiety may be contributing Plan Diet: Heart healthy GI Prophylaxis: N/a DVT Prophylaxis: SCDs IV fluids: LR at 150 mL/hr x1L Lines/Tubes: peripheral IV Code Status: full code Time Spent With Patient Time: 45 minutes Subjective Date/time seen: 01/25/25 15:50 Interval history: Still having runs of SVT, increased metoprolol to 50 daily Trial of seroquel prn during the day Still visibly short of breath at rest Review of Systems Review of Systems: All systems reviewed & are unremarkable except as noted in HPI and below (Limited due to baseline disorientation) Exam Narrative: General - Awake and alert. No acute distress Eyes - PERRLA, EOM intact ENT - No thrush, No erythema Neck - No noticeable or palpable swelling Lymph Nodes - No lymphadenopathy Cardiovascular - RRR no m/r/g, no JVD Lungs: End expiratory wheezing, moving more air Skin - Skin warm and dry, no wounds or rashes Abdomen - Normal bowel sounds, abdomen soft and nontender Extremities - No edema, cyanosis or clubbing Musculoskeletal - 3/5 strength, normal range of motion, no swollen or erythematous joints. Neurological ? Alert and oriented x 1, CN 2-12 grossly intact. Psych: Anxious and upset Objective Data Vital Signs Vital Signs: Vital Signs - 24 hr 01/24/25 16:02 01/24/25 17:07 01/24/25 20:00 Temperature Pulse Rate 100 89 Respiratory Rate Blood Pressure Pulse Oximetry Oxygen Delivery Room Air 01/24/25 20:00 01/24/25 22:00 01/24/25 23:45 Temperature 97.5 F L Pulse Rate 78 85 76 Respiratory Rate 18 Blood Pressure 165/94 H Pulse Oximetry 92 Oxygen Delivery 01/25/25 00:00 01/25/25 04:00 01/25/25 05:30 Temperature Pulse Rate 77 80 90 Respiratory Rate Blood Pressure Pulse Oximetry Oxygen Delivery 01/25/25 06:00 01/25/25 08:00 01/25/25 08:00 Temperature 97.2 F L Pulse Rate 82 171 H Respiratory Rate 18 Blood Pressure 169/67 H Pulse Oximetry 94 94 Oxygen Delivery Room Air 01/25/25 09:03 01/25/25 12:00 01/25/25 14:00 Temperature 97.9 F Pulse Rate 86 78 82 Respiratory Rate 18 Blood Pressure 160/81 H Pulse Oximetry 93 Oxygen Delivery Intake/Output Intake/Output: Intake & Output 01/22/25 01/23/25 01/24/25 01/25/25 23:59 23:59 23:59 23:59 Intake Total 1718 1796 500 Output Total 1300 1650 2350 900 Balance 418 402 -2813 -813 Meds/Results Medications: Active Medications Generic Name Dose Route Start Last Admin Trade Name Freq PRN Reason Stop Dose Admin Acetaminophen 650 mg 01/20/25 15:32 01/25/25 09:04 Acetaminophen 325 Mg Tablet PO 650 mg Q6H PRN Administration Mild Pain (1-3) or Fever Ascorbic Acid 1,000 mg 01/21/25 09:00 01/25/25 09:04 Ascorbic Acid 500 Mg Tablet PO 1,000 mg DAILY SHAWNA Administration Aspirin 81 mg 01/21/25 09:00 01/25/25 09:05 Aspirin 81 Mg Enteric Tablet PO 81 mg DAILY SHAWNA Administration Atorvastatin Calcium 80 mg 01/21/25 09:00 01/25/25 09:04 Atorvastatin 40 Mg Tablet PO 80 mg DAILY SHAWNA Administration Bisacodyl 10 mg 01/23/25 16:00 Bisacodyl 10 Mg Suppository RECTAL DAILY PRN Constipation Calcium Carbonate 500 mg 01/21/25 09:00 01/25/25 09:05 Calcium Carbonate (Oscal) 500 Mg Tablet PO 500 mg DAILY SHAWNA Administration Calcium Polycarbophil 625 mg 01/21/25 09:00 01/25/25 09:05 Calcium Polycarbophil 625 Mg Tablet PO 625 mg DAILY SHAWNA Administration Cyanocobalamin 500 mcg 01/21/25 09:00 01/25/25 09:05 Cyanocobalamin 500 Mcg Tablet PO 500 mcg DAILY SHAWNA Administration Dextrose 12.5 gm 01/24/25 17:18 Dextrose 50% 25 Gm/50 Ml Syringe IV PUSH PRN PRN Hypoglycemia Protocol Docusate Sodium 100 mg 01/20/25 21:03 Docusate Sodium 100 Mg Capsule PO DAILY PRN constipation Enoxaparin Sodium 40 mg 01/22/25 15:40 01/25/25 09:24 Enoxaparin 40 Mg/0.4 Ml Syringe SUB-Q 40 mg DAILY SHAWNA Administration Fluticasone/Umeclidinium/Vilanterol 1 puff 01/21/25 13:25 01/25/25 07:58 Fluticasone/Umeclidin/Vilanter 100-62.5-25 Mcg Ellipta INHALATION 1 puff DAILYRT SHAWNA Administration Folic Acid 1 mg 01/21/25 09:00 01/25/25 09:04 Folic Acid 1 Mg Tablet PO 1 mg DAILY SHAWNA Administration Glucagon 1 mg 01/24/25 17:18 Glucagon For Inj 1 Mg Vial IM PRN PRN Hypoglycemia Protocol Glucose 15 gm 01/24/25 17:18 Glucose Oral Gel 15 Gm Of Glucse In 37.5 Gm Tube PO PRN PRN Hypoglycemia Protocol Guaifenesin 600 mg 01/20/25 21:00 01/25/25 09:04 Guaifenesin 12 Hr 600 Mg Tabcr PO 600 mg Q12HR SHAWNA Administration Ceftriaxone Sodium 1 gm/ 50 mls @ 100 mls/hr 01/20/25 16:00 01/24/25 17:13 Sodium Chloride IVPB 01/25/25 16:29 Infused Q24H SHAWNA Infusion Dextrose 1,000 mls @ 100 mls/hr 01/24/25 17:18 Dextrose 5% 1,000 Ml IVPB PRN PRN Hypoglycemia Protocol Isosorbide Mononitrate 60 mg 01/21/25 09:00 01/25/25 09:05 Isosorbide Mononitrate 60 Mg Tab.Er.24h PO 60 mg DAILY SHAWNA Administration Levalbuterol HCl 1.25 mg 01/21/25 18:22 01/25/25 03:45 Levalbuterol Neb 1.25 Mg/3 Ml INHALATION 1.25 mg Q6HRT PRN Administration shortness of breath Levothyroxine Sodium 100 mcg 01/21/25 06:30 01/25/25 05:30 Levothyroxine Sodium 100 Mcg Tablet PO 100 mcg DAILY@0630 SHAWNA Administration Lisinopril 20 mg 01/21/25 09:00 01/25/25 09:04 Lisinopril 20 Mg Tablet PO 20 mg DAILY SHAWNA Administration Loratadine 10 mg 01/21/25 09:00 01/25/25 09:05 Loratadine 10 Mg Tablet PO 10 mg DAILY SHAWNA Administration Lorazepam 0.25 mg 01/23/25 10:17 01/24/25 18:20 Lorazepam Inj (*Crx) 2 Mg/Ml Vial IV PUSH 01/26/25 10:16 0.25 mg Q6H PRN Administration Anxiety Megestrol Acetate 40 mg 01/25/25 13:00 01/25/25 14:33 Megestrol Acetate (*Chemo) Oral Susp 40 Mg/Ml Syr PO 40 mg TID SHAWNA Administration Methylprednisolone Sodium Succinate 40 mg 01/22/25 22:00 01/25/25 14:32 Methylprednisolone Sod Succ 40 Mg Vial IV PUSH 40 mg Q8HR SHAWNA Administration Metoprolol Succinate 50 mg 01/25/25 09:00 01/25/25 09:03 Metoprolol Succinate Ext Rel 50 Mg Tabcr PO 50 mg QAM SHAWNA Administration Montelukast Sodium 10 mg 01/21/25 09:00 01/25/25 09:04 Montelukast Sodium 10 Mg Tablet PO 10 mg DAILY SHAWNA Administration Multivitamins Therapeutic 1 tablet 01/21/25 09:00 01/25/25 09:05 Multivitamins Therapeutic Tab (*Bkc) PO 1 tablet DAILY SHAWNA Administration Ondansetron HCl 4 mg 01/20/25 15:32 Ondansetron Hcl Odt 4 Mg Tablet PO Q6H PRN Nausea And Vomiting Pantoprazole Sodium 40 mg 01/21/25 09:00 01/25/25 09:05 Pantoprazole 40 Mg Tablet PO 40 mg DAILY SHAWNA Administration Polyethylene Glycol 17 gm 01/23/25 16:00 01/25/25 09:33 Polyethylene Glycol 3350 17 Gm Powd.Pack PO 17 gm QAM PRN Administration constipation Pregabalin 200 mg 01/20/25 21:15 01/25/25 09:03 Pregabalin (*Crx) 50 Mg Capsule PO 200 mg BID SHAWNA Administration Quetiapine Fumarate 25 mg 01/24/25 20:00 01/24/25 20:20 Quetiapine Fumarate 25 Mg Tablet PO 25 mg Q24H SHAWNA Administration Quetiapine Fumarate 12.5 mg 01/24/25 12:15 01/25/25 09:28 Quetiapine Fumarate 12.5 Mg Tablet PO 12.5 mg DAILY PRN Administration Agitation Radiology Results: ITS Impressions Chest X-Ray 01/21/25 18:28 IMPRESSION: No acute cardiopulmonary process. Chest CTA 01/22/25 17:34 IMPRESSION: No pulmonary embolus. No thoracic aortic dissection. Panlobular emphysematous disease, as detailed above. Quality VTE Prophylaxis VTE prophylaxis: mechanical ordered Hospitalist MIPS Advance Care Plan I have confirmed that the patient's Advanced Care Plan is present, code status is documented, or surrogate decision maker is listed in patient medical record.: Yes Medication Reconciliation I have utilized all available resources to obtain, update and review the patients current medications (includes all prescriptions, OTC, herbals, cannabis, and nutritional supplements).: Yes
[2025-01-25] MEDS: cefTRIAXone 1 GM in SODIUM CHLORIDE 0.9% IV 50 ML 100 ML IVPB (17:19)
[2025-01-26] VITALS (10 sets, daily range): BP systolic 149–189; BP diastolic 56–85; PULSE 70–91; RESP 18–20; TEMP 36.2–36.8; O2SAT 93–94
[2025-01-26] MEDS: LEVOTHYROXINE SODIUM 100 MCG TABLET PO (05:32)
[2025-01-26] MEDS: LORATADINE 10 MG TABLET PO (08:26)
[2025-01-26] MEDS: CALCIUM CARBONATE (OSCAL) 500 MG TABLET PO (08:26)
[2025-01-26] MEDS: FOLIC ACID 1 MG TABLET PO (08:26)
[2025-01-26] MEDS: ASCORBIC ACID 500 MG TABLET 1000 MG PO (08:26)
[2025-01-26] MEDS: MONTELUKAST SODIUM 10 MG TABLET PO (08:26)
[2025-01-26] MEDS: ISOSORBIDE MONONITRATE 60 MG TAB.ER.24H PO (08:27)
[2025-01-26] MEDS: CYANOCOBALAMIN 500 MCG TABLET PO (08:27)
[2025-01-26] MEDS: guaiFENesin 12 HR 600 MG TABCR PO (08:27)
[2025-01-26] MEDS: METOPROLOL SUCCINATE EXT REL 50 MG TABCR PO (08:27)
[2025-01-26] MEDS: MULTIVITAMINS THERAPEUTIC TAB (*BKC) 1 TABLET PO (08:27)
[2025-01-26] MEDS: PANTOPRAZOLE 40 MG TABLET PO (08:27)
[2025-01-26] MEDS: ATORVASTATIN 40 MG TABLET 80 MG PO (08:29)
[2025-01-26] MEDS: ASPIRIN 81 MG ENTERIC TABLET PO (08:29)
[2025-01-26] MEDS: PREGABALIN (*CRX) 50 MG CAPSULE 200 MG PO ×2 (08:29→17:06)
[2025-01-26] MEDS: MEGESTROL ACETATE (*CHEMO) ORAL SUSP 40 MG/ML SYR PO ×3 (08:31→17:06)
[2025-01-26] MEDS: ENOXAPARIN 40 MG/0.4 ML SYRINGE SUB-Q (08:33)
[2025-01-26] MEDS: ACETAMINOPHEN 325 MG TABLET 650 MG PO (08:50)
[2025-01-26] MEDS: FLUTICASONE/UMECLIDIN/VILANTER 100-62.5-25 MCG ELLIPTA 1 PUFF INHALATION (10:08)
--- NOTE | 2025-01-26 11:30 | P.PNIM_ITS ---
Progress Note: A&P Assessment and Plan (1) Acute respiratory failure with hypoxia: Code(s): J96.01 - Acute respiratory failure with hypoxia Status: Acute Assessment and Plan: NT proBNP normal. Still on 2L O2 Wean for sats >92% -TTE showed hyperdynamic LVEF >70% --Pulmonary consulted, appreciate recommendations 01/22 CTA No pulmonary embolus. No thoracic aortic dissection. Panlobular emphysematous disease, as detailed above. -Goals of care: No Bipap, No intubation -High risk for respiratory decompensation but no plan for advanced airways 01/26/25: * Pt has been weaned off of supplemental oxygen. Saturations are maintaining on room air. * Both Pulmonology and myself agree she is now at her baseline and the IV steroids are switched to oral/elixer for G-tube, and she is started on Daliresp here. She will be given a prescription for Daliresp for home, but will need a prior auth by PCP. * She is stable for discharge to home tomorrow. Son, Jacob is notified. (2) COPD exacerbation: Code(s): J44.1 - Chronic obstructive pulmonary disease with (acute) exacerbation Status: Acute Assessment and Plan: 01/26/25: * See #1 above * Switch to Xopenex prn * Acapella * Continue respiratory therapy treatments * Pt has finished full course of abx. * Pulmonology signing off. * Start Daliresp. * Switch to oral prednisone (3) HTN (hypertension): Qualifiers: Hypertension type: primary hypertension Qualified Code(s): I10 - Essential (primary) hypertension Code(s): I10 - Essential (primary) hypertension Status: Chronic Assessment and Plan: * Continue home meds. * Continue to monitor and trend. (4) Anxiety: Code(s): F41.9 - Anxiety disorder, unspecified Status: Acute Assessment and Plan: Severe anxiety, not tolerating breathing treatments due to claustrophobia. Family gives them while she's asleep and holds them away from her face --Ativan 0.25 q6 prn IV since not taking PO --Seroquel 12.5mg daily prn when taking po (5) SVT (supraventricular tachycardia): Code(s): I47.10 - Supraventricular tachycardia, unspecified Status: Acute Assessment and Plan: Metoprolol 25mg daily>change to 12.5 q6 Continue to monitor on tele and titrate as able Anxiety may be contributing Plan Diet: Heart healthy GI Prophylaxis: N/a DVT Prophylaxis: SCDs IV fluids: LR at 150 mL/hr x1L Lines/Tubes: peripheral IV Code Status: full code Time Spent With Patient Time with patient: Greater than 35 minutes Subjective Date/time seen: 01/26/25 11:30 Interval history: This 89 year old female pt is examined at the bedside. She is found sitting up in the chair next to the bed at this time appearing chronically ill and currently on room air. She reports that she just doesn't feel well overall and feels lousy. She is a DNI/and No BiPap either. Pulmonology has consulted and is co-managing and consulting. She continues to be not tolerable of a lot of interventions secondary to her being claustrophobic and having severe anxiety, not tolerating anything on or around her face. Her caregiver is at the bedside and does not identify any new symptoms or any new complaints, and states that pt is at her baseline as well. She has been evaluated by PT and OT and at this point she is not participating with any therapy and they would like to sign off of her case. I have discussed with Dr. Gonzalez, Supply Chain Analyst and she agrees that the pt is at her baseline and she is signing off of the case as well as the pt will likely fare better at home. She is being dosed today with Daliresp and her IV steroids are being changed to oral/G-tube. The plan is to discharge to home tomorrow. Both myself and Dr. Gonzalez agree that the pt will be ready for discharge tomorrow. I have attempted to call both the pt's daughter, Mandy, who is listed as POA as did Dr. Gonzalez and she is out of town and unable to accept a call this weekend. Jacob, pt's son is notified and all questions answered within my capability for his concerns. Daliresp sent to pharmacy so that prior auth may be started. Review of Systems Review of Systems: All systems reviewed & are unremarkable except as noted in HPI and below Exam Narrative: General - Awake and alert. No acute distress, sitting up in chair at bedside at this time. On room air and no immediate distress, but does not appear well overall. . Eyes - PERRLA, EOM intact ENT - Patent posterior O/P without any edema, erythema or exudate. Neck - FROM, supple, No LN Cardiovascular - RRR, no m/r/g/h or displacement of PMI. No peripheral edema. Lungs: Decreased breath sounds throughout, no active wheezing or rhonchi. Skin - Skin warm and dry, no wounds or rashes Abdomen - Normal bowel sounds, abdomen soft and nontender Extremities - No edema, cyanosis or clubbing Musculoskeletal - Generalized weakness present in all extremities without any edema, joint erythema. Neurological ? Alert and oriented x 1, no focal deficits. Generalized weakness present. Psychological: Anxious Objective Data Vital Signs Vital Signs: Vital Signs - 24 hr 01/25/25 12:00 01/25/25 14:00 01/25/25 16:00 Temperature 97.9 F Pulse Rate 78 82 81 Respiratory Rate 18 Blood Pressure 160/81 H Pulse Oximetry 93 Oxygen Delivery 01/25/25 19:59 01/25/25 20:00 01/26/25 00:00 Temperature 97.4 F L Pulse Rate 78 78 73 Respiratory Rate 20 Blood Pressure 149/68 H Pulse Oximetry 96 Oxygen Delivery 01/26/25 04:00 01/26/25 05:37 01/26/25 08:00 Temperature 97.1 F L Pulse Rate 70 80 82 Respiratory Rate 20 Blood Pressure 189/85 H Pulse Oximetry 94 Oxygen Delivery Room Air 01/26/25 08:00 01/26/25 08:27 Temperature Pulse Rate 91 82 Respiratory Rate Blood Pressure Pulse Oximetry Oxygen Delivery Intake/Output Intake/Output: Intake & Output 01/23/25 01/24/25 01/25/25 01/26/25 23:59 23:59 23:59 23:59 Intake Total 1796 500 510 540 Output Total 1650 2350 900 600 Balance 146 -1850 -390 -60 Meds/Results Medications: Active Medications Generic Name Dose Route Start Last Admin Trade Name Freq PRN Reason Stop Dose Admin Acetaminophen 650 mg 01/20/25 15:32 01/26/25 08:50 Acetaminophen 325 Mg Tablet PO 650 mg Q6H PRN Administration Mild Pain (1-3) or Fever Ascorbic Acid 1,000 mg 01/21/25 09:00 01/26/25 08:26 Ascorbic Acid 500 Mg Tablet PO 1,000 mg DAILY SHAWNA Administration Aspirin 81 mg 01/21/25 09:00 01/26/25 08:29 Aspirin 81 Mg Enteric Tablet PO 81 mg DAILY SHAWNA Administration Atorvastatin Calcium 80 mg 01/21/25 09:00 01/26/25 08:29 Atorvastatin 40 Mg Tablet PO 80 mg DAILY SHAWNA Administration Bisacodyl 10 mg 01/23/25 16:00 Bisacodyl 10 Mg Suppository RECTAL DAILY PRN Constipation Calcium Carbonate 500 mg 01/21/25 09:00 01/26/25 08:26 Calcium Carbonate (Oscal) 500 Mg Tablet PO 500 mg DAILY SHAWNA Administration Calcium Polycarbophil 625 mg 01/21/25 09:00 01/26/25 08:29 Calcium Polycarbophil 625 Mg Tablet PO 625 mg DAILY SHAWNA Administration Cyanocobalamin 500 mcg 01/21/25 09:00 01/26/25 08:27 Cyanocobalamin 500 Mcg Tablet PO 500 mcg DAILY SHAWNA Administration Dextrose 12.5 gm 01/24/25 17:18 Dextrose 50% 25 Gm/50 Ml Syringe IV PUSH PRN PRN Hypoglycemia Protocol Docusate Sodium 100 mg 01/20/25 21:03 Docusate Sodium 100 Mg Capsule PO DAILY PRN constipation Enoxaparin Sodium 40 mg 01/22/25 15:40 01/26/25 08:33 Enoxaparin 40 Mg/0.4 Ml Syringe SUB-Q 40 mg DAILY SHAWNA Administration Fluticasone/Umeclidinium/Vilanterol 1 puff 01/21/25 13:25 01/26/25 10:08 Fluticasone/Umeclidin/Vilanter 100-62.5-25 Mcg Ellipta INHALATION 1 puff DAILYRT SHAWNA Administration Folic Acid 1 mg 01/21/25 09:00 01/26/25 08:26 Folic Acid 1 Mg Tablet PO 1 mg DAILY SHAWNA Administration Glucagon 1 mg 01/24/25 17:18 Glucagon For Inj 1 Mg Vial IM PRN PRN Hypoglycemia Protocol Glucose 15 gm 01/24/25 17:18 Glucose Oral Gel 15 Gm Of Glucse In 37.5 Gm Tube PO PRN PRN Hypoglycemia Protocol Guaifenesin 600 mg 01/20/25 21:00 01/26/25 08:27 Guaifenesin 12 Hr 600 Mg Tabcr PO 600 mg Q12HR SHAWNA Administration Dextrose 1,000 mls @ 100 mls/hr 01/24/25 17:18 Dextrose 5% 1,000 Ml IVPB PRN PRN Hypoglycemia Protocol Isosorbide Mononitrate 60 mg 01/21/25 09:00 01/26/25 08:27 Isosorbide Mononitrate 60 Mg Tab.Er.24h PO 60 mg DAILY SHAWNA Administration Levalbuterol HCl 1.25 mg 01/21/25 18:22 01/25/25 03:45 Levalbuterol Neb 1.25 Mg/3 Ml INHALATION 1.25 mg Q6HRT PRN Administration shortness of breath Levothyroxine Sodium 100 mcg 01/21/25 06:30 01/26/25 05:32 Levothyroxine Sodium 100 Mcg Tablet PO 100 mcg DAILY@0630 SHAWNA Administration Lisinopril 20 mg 01/21/25 09:00 01/26/25 08:27 Lisinopril 20 Mg Tablet PO 20 mg DAILY SHAWNA Administration Loratadine 10 mg 01/21/25 09:00 01/26/25 08:26 Loratadine 10 Mg Tablet PO 10 mg DAILY SHAWNA Administration Megestrol Acetate 40 mg 01/25/25 13:00 01/26/25 08:31 Megestrol Acetate (*Chemo) Oral Susp 40 Mg/Ml Syr PO 40 mg TID SHAWNA Administration Methylprednisolone Sodium Succinate 40 mg 01/22/25 22:00 01/26/25 05:32 Methylprednisolone Sod Succ 40 Mg Vial IV PUSH 40 mg Q8HR SHAWNA Administration Metoprolol Succinate 50 mg 01/25/25 09:00 01/26/25 08:27 Metoprolol Succinate Ext Rel 50 Mg Tabcr PO 50 mg QAM SHAWNA Administration Montelukast Sodium 10 mg 01/21/25 09:00 01/26/25 08:26 Montelukast Sodium 10 Mg Tablet PO 10 mg DAILY SHAWNA Administration Multivitamins Therapeutic 1 tablet 01/21/25 09:00 01/26/25 08:27 Multivitamins Therapeutic Tab (*Bkc) PO 1 tablet DAILY SHAWNA Administration Ondansetron HCl 4 mg 01/20/25 15:32 Ondansetron Hcl Odt 4 Mg Tablet PO Q6H PRN Nausea And Vomiting Pantoprazole Sodium 40 mg 01/21/25 09:00 01/26/25 08:27 Pantoprazole 40 Mg Tablet PO 40 mg DAILY SHAWNA Administration Polyethylene Glycol 17 gm 01/23/25 16:00 01/25/25 09:33 Polyethylene Glycol 3350 17 Gm Powd.Pack PO 17 gm QAM PRN Administration constipation Pregabalin 200 mg 01/20/25 21:15 01/26/25 08:29 Pregabalin (*Crx) 50 Mg Capsule PO 200 mg BID SHAWNA Administration Quetiapine Fumarate 25 mg 01/24/25 20:00 01/25/25 20:34 Quetiapine Fumarate 25 Mg Tablet PO 25 mg Q24H SHAWNA Administration Quetiapine Fumarate 12.5 mg 01/24/25 12:15 01/25/25 09:28 Quetiapine Fumarate 12.5 Mg Tablet PO 12.5 mg DAILY PRN Administration Agitation Radiology Results: ITS Impressions Chest X-Ray 01/21/25 18:28 IMPRESSION: No acute cardiopulmonary process. Chest CTA 01/22/25 17:34 IMPRESSION: No pulmonary embolus. No thoracic aortic dissection. Panlobular emphysematous disease, as detailed above. Quality VTE Prophylaxis VTE prophylaxis: pharmacologic ordered
[2025-01-26] MEDS: ROFLUMILAST 250 MCG TABLET PO (13:46)
[2025-01-27] VITALS (7 sets, daily range): BP systolic 119–157; BP diastolic 43–68; PULSE 51–87; RESP 18; TEMP 36.5–36.6; O2SAT 94–96
[2025-01-27] MEDS: LEVOTHYROXINE SODIUM 100 MCG TABLET PO (05:30)
[2025-01-27 05:38] LABS: Hematocrit 42.1 % (37.0-47.0); Hemoglobin 13.7 g/dL (12.0-15.0); Immature Granulocyte Percent A 0.6 % (0-0.5); Lymphocytes Absolute Auto 2.68 K/mm3 (0.9-3.2); Mean Corpuscular HGB Conc 32.5 g/dl (32-36); Mean Corpuscular Hemoglobin 28.1 pg (26-34); Mean Corpuscular Volume 86.4 fl (80-100); Nucleated Red Blood Cells Absolute Auto 0.000 K/mm3 (0.0-0.012); Nucleated Red Blood Cells Perc 0.0 % (0.0-0.2); Platelet Count Result 236 k/mm3 (150-375); Red Blood Count 4.87 M/mm3 (4.2-5.4); White Blood Count 16.4 K/mm3 (4.5-10.0)
--- NOTE | 2025-01-27 07:22 | PM.IMPN ---
Progress Note: A&P Assessment and Plan (1) Acute respiratory failure with hypoxia: Code(s): J96.01 - Acute respiratory failure with hypoxia Status: Acute Assessment and Plan: NT proBNP normal. Still on 2L O2 Wean for sats >92% -TTE showed hyperdynamic LVEF >70% --Pulmonary consulted, appreciate recommendations 01/22 CTA No pulmonary embolus. No thoracic aortic dissection. Panlobular emphysematous disease, as detailed above. -Goals of care: No Bipap, No intubation -High risk for respiratory decompensation but no plan for advanced airways (2) COPD exacerbation: Code(s): J44.1 - Chronic obstructive pulmonary disease with (acute) exacerbation Status: Acute Assessment and Plan: Former smoker with recent exposure to viral illness, coarse cough, shortness of breath. No hypoxia. Viral PCR negative. No improvement with recent steroid course outpatient. Given age, will treat inpatient for COPD exacerbation. 01/24 VBG showed respiratory alkalosis - CXR showed clear lungs, repeat chest x-ray unchanged - Duonebs scheduled but not tolerating well due to severe claustrophobia, changed to albuterol q4 - Continue IV methylprednisone 60mg IV q6> 40 q8 - started on ceftriaxone and azithromycin on 01/20 for exacerbation, continue for now - Mucinex scheduled - continue home meds: Trelegy substituted for Breztri, continue when able. ipratropium nebs if refusing if will take them --Xopenex prn --Treatment of respiratory failure, scheduled --Pulmonary consulted, appreciate recommendations Vest treatments when tolerating (3) HTN (hypertension): Qualifiers: Hypertension type: primary hypertension Qualified Code(s): I10 - Essential (primary) hypertension Code(s): I10 - Essential (primary) hypertension Status: Chronic Assessment and Plan: - chronic, currently 162/69 - continue home medications: Lisinopril, Metoprolol - monitor (4) Anxiety: Code(s): F41.9 - Anxiety disorder, unspecified Status: Acute Assessment and Plan: Severe anxiety, not tolerating breathing treatments due to claustrophobia. Family gives them while she's asleep and holds them away from her face --Ativan 0.25 q6 prn IV since not taking PO --Seroquel 12.5mg daily prn when taking po (5) SVT (supraventricular tachycardia): Code(s): I47.10 - Supraventricular tachycardia, unspecified Status: Acute Assessment and Plan: Metoprolol 25mg daily>changed to 12.5 q6 with improvement--change to 50 xl daily Continue to monitor on tele and titrate as able Anxiety may be contributing Plan Diet: Heart healthy GI Prophylaxis: N/a DVT Prophylaxis: SCDs IV fluids: LR at 150 mL/hr x1L Lines/Tubes: peripheral IV Code Status: full code Time Spent With Patient Time: 63 minutes Subjective Date/time seen: 01/27/25 07:22 Interval history: WBC up to 16 Review of Systems Review of Systems: All systems reviewed & are unremarkable except as noted in HPI and below Exam Narrative: General - Awake and alert. No acute distress, sitting up in chair at bedside at this time. On room air and no immediate distress, but does not appear well overall. . Eyes - PERRLA, EOM intact ENT - Patent posterior O/P without any edema, erythema or exudate. Neck - FROM, supple, No LN Cardiovascular - RRR, no m/r/g/h or displacement of PMI. No peripheral edema. Lungs: Decreased breath sounds throughout, no active wheezing or rhonchi. Skin - Skin warm and dry, no wounds or rashes Abdomen - Normal bowel sounds, abdomen soft and nontender Extremities - No edema, cyanosis or clubbing Musculoskeletal - Generalized weakness present in all extremities without any edema, joint erythema. Neurological ? Alert and oriented x 1, no focal deficits. Generalized weakness present. Psychological: Anxious Objective Data Vital Signs Vital Signs: Vital Signs - 24 hr 01/26/25 08:00 01/26/25 08:00 01/26/25 08:27 Temperature Pulse Rate 82 91 82 Respiratory Rate Blood Pressure Pulse Oximetry Oxygen Delivery Room Air 01/26/25 12:00 01/26/25 12:00 01/26/25 15:35 Temperature 97.5 F L Pulse Rate 76 76 79 Respiratory Rate 20 Blood Pressure 149/78 H Pulse Oximetry 93 Oxygen Delivery 01/26/25 20:00 01/26/25 20:00 01/26/25 20:17 Temperature 98.2 F Pulse Rate 80 77 Respiratory Rate 18 Blood Pressure 155/56 H Pulse Oximetry 94 Oxygen Delivery Room Air 01/26/25 21:11 01/27/25 00:00 01/27/25 04:00 Temperature Pulse Rate 75 73 Respiratory Rate Blood Pressure Pulse Oximetry 94 Oxygen Delivery Room Air 01/27/25 05:52 Temperature 97.7 F Pulse Rate 81 Respiratory Rate 18 Blood Pressure 157/68 H Pulse Oximetry 96 Oxygen Delivery Intake/Output Intake/Output: Intake & Output 01/24/25 01/25/25 01/26/25 01/27/25 23:59 23:59 23:59 23:59 Intake Total 500 510 830 340 Output Total 2350 900 900 300 Balance -1850 -390 -70 40 Meds/Results Medications: Active Medications Generic Name Dose Route Start Last Admin Trade Name Freq PRN Reason Stop Dose Admin Acetaminophen 650 mg 01/20/25 15:32 01/26/25 08:50 Acetaminophen 325 Mg Tablet PO 650 mg Q6H PRN Administration Mild Pain (1-3) or Fever Ascorbic Acid 1,000 mg 01/21/25 09:00 01/26/25 08:26 Ascorbic Acid 500 Mg Tablet PO 1,000 mg DAILY SHAWNA Administration Aspirin 81 mg 01/21/25 09:00 01/26/25 08:29 Aspirin 81 Mg Enteric Tablet PO 81 mg DAILY SHAWNA Administration Atorvastatin Calcium 80 mg 01/21/25 09:00 01/26/25 08:29 Atorvastatin 40 Mg Tablet PO 80 mg DAILY SHAWNA Administration Bisacodyl 10 mg 01/23/25 16:00 Bisacodyl 10 Mg Suppository RECTAL DAILY PRN Constipation Calcium Carbonate 500 mg 01/21/25 09:00 01/26/25 08:26 Calcium Carbonate (Oscal) 500 Mg Tablet PO 500 mg DAILY SHAWNA Administration Calcium Polycarbophil 625 mg 01/21/25 09:00 01/26/25 08:29 Calcium Polycarbophil 625 Mg Tablet PO 625 mg DAILY SHAWNA Administration Cyanocobalamin 500 mcg 01/21/25 09:00 01/26/25 08:27 Cyanocobalamin 500 Mcg Tablet PO 500 mcg DAILY SHAWNA Administration Dextrose 12.5 gm 01/24/25 17:18 Dextrose 50% 25 Gm/50 Ml Syringe IV PUSH PRN PRN Hypoglycemia Protocol Docusate Sodium 100 mg 01/20/25 21:03 Docusate Sodium 100 Mg Capsule PO DAILY PRN constipation Enoxaparin Sodium 40 mg 01/22/25 15:40 01/26/25 08:33 Enoxaparin 40 Mg/0.4 Ml Syringe SUB-Q 40 mg DAILY SHAWNA Administration Folic Acid 1 mg 01/21/25 09:00 01/26/25 08:26 Folic Acid 1 Mg Tablet PO 1 mg DAILY SHAWNA Administration Glucagon 1 mg 01/24/25 17:18 Glucagon For Inj 1 Mg Vial IM PRN PRN Hypoglycemia Protocol Glucose 15 gm 01/24/25 17:18 Glucose Oral Gel 15 Gm Of Glucse In 37.5 Gm Tube PO PRN PRN Hypoglycemia Protocol Dextrose 1,000 mls @ 100 mls/hr 01/24/25 17:18 Dextrose 5% 1,000 Ml IVPB PRN PRN Hypoglycemia Protocol Isosorbide Mononitrate 60 mg 01/21/25 09:00 01/26/25 08:27 Isosorbide Mononitrate 60 Mg Tab.Er.24h PO 60 mg DAILY SHAWNA Administration Levalbuterol HCl 1.25 mg 01/21/25 18:22 01/25/25 03:45 Levalbuterol Neb 1.25 Mg/3 Ml INHALATION 1.25 mg Q6HRT PRN Administration shortness of breath Levothyroxine Sodium 100 mcg 01/21/25 06:30 01/27/25 05:30 Levothyroxine Sodium 100 Mcg Tablet PO 100 mcg DAILY@0630 SHAWNA Administration Lisinopril 20 mg 01/21/25 09:00 01/26/25 08:27 Lisinopril 20 Mg Tablet PO 20 mg DAILY SHAWNA Administration Loratadine 10 mg 01/21/25 09:00 01/26/25 08:26 Loratadine 10 Mg Tablet PO 10 mg DAILY SHAWNA Administration Megestrol Acetate 40 mg 01/25/25 13:00 01/26/25 17:06 Megestrol Acetate (*Chemo) Oral Susp 40 Mg/Ml Syr PO 40 mg TID SHAWNA Administration Metoprolol Succinate 50 mg 01/25/25 09:00 01/26/25 08:27 Metoprolol Succinate Ext Rel 50 Mg Tabcr PO 50 mg QAM SHAWNA Administration Montelukast Sodium 10 mg 01/21/25 09:00 01/26/25 08:26 Montelukast Sodium 10 Mg Tablet PO 10 mg DAILY SHAWNA Administration Multivitamins Therapeutic 1 tablet 01/21/25 09:00 01/26/25 08:27 Multivitamins Therapeutic Tab (*Bkc) PO 1 tablet DAILY SHAWNA Administration Ondansetron HCl 4 mg 01/20/25 15:32 Ondansetron Hcl Odt 4 Mg Tablet PO Q6H PRN Nausea And Vomiting Pantoprazole Sodium 40 mg 01/21/25 09:00 01/26/25 08:27 Pantoprazole 40 Mg Tablet PO 40 mg DAILY SHAWNA Administration Polyethylene Glycol 17 gm 01/23/25 16:00 01/25/25 09:33 Polyethylene Glycol 3350 17 Gm Powd.Pack PO 17 gm QAM PRN Administration constipation Prednisone 40 mg 01/27/25 08:00 Prednisone 20 Mg Tablet PO 01/29/25 08:01 DAILY@0800 SHAWNA Prednisone 30 mg 01/30/25 08:00 Prednisone 10 Mg Tablet PO 02/01/25 08:01 DAILY@0800 SHAWNA Prednisone 20 mg 02/02/25 08:00 Prednisone 20 Mg Tablet PO 02/04/25 08:01 DAILY@0800 SHAWNA Prednisone 10 mg 02/05/25 08:00 Prednisone 10 Mg Tablet PO 02/07/25 08:01 DAILY@0800 SHAWNA Pregabalin 200 mg 01/20/25 21:15 01/26/25 17:06 Pregabalin (*Crx) 50 Mg Capsule PO 200 mg BID SHAWNA Administration Quetiapine Fumarate 25 mg 01/24/25 20:00 01/26/25 21:05 Quetiapine Fumarate 25 Mg Tablet PO 25 mg Q24H SHAWNA Administration Quetiapine Fumarate 12.5 mg 01/24/25 12:15 01/25/25 09:28 Quetiapine Fumarate 12.5 Mg Tablet PO 12.5 mg DAILY PRN Administration Agitation Roflumilast 250 mcg 01/26/25 13:00 01/26/25 13:46 Roflumilast 250 Mcg Tablet PO 250 mcg DAILY SHAWNA Administration Radiology Results: ITS Impressions Chest X-Ray 01/21/25 18:28 IMPRESSION: No acute cardiopulmonary process. Chest CTA 01/22/25 17:34 IMPRESSION: No pulmonary embolus. No thoracic aortic dissection. Panlobular emphysematous disease, as detailed above. Labs Labs: Laboratory Results - last 24 hr 01/27/25 04:45 WBC 16.4 H RBC 4.87 Hgb 13.7 Hct 42.1 MCV 86.4 MCH 28.1 MCHC 32.5 RDW 13.8 Plt Count 236 MPV 10.7 H Immature Gran % (Auto) 0.6 H Neut % (Auto) 77.1 H Lymph % (Auto) 16.4 L [place] % (Auto) 5.4 Eos % (Auto) 0.4 Baso % (Auto) 0.1 L Lymph # (Auto) 2.68 [place] # (Auto) 0.9 H Eos # (Auto) 0.1 Baso # (Auto) 0.0 Abs Immat Gran (auto) 0.10 H Absolute Neuts (auto) 12.6 H Absolute Nucleated RBC 0.000 Nucleated RBC % 0.0 Quality VTE Prophylaxis VTE prophylaxis: pharmacologic ordered Hospitalist [facility] Advance Care Plan I have confirmed that the patient's Advanced Care Plan is present, code status is documented, or surrogate decision maker is listed in patient medical record.: Yes Medication Reconciliation I have utilized all available resources to obtain, update and review the patients current medications (includes all prescriptions, OTC, herbals, cannabis, and nutritional supplements).: Yes
[2025-01-27] MEDS: METOPROLOL SUCCINATE EXT REL 50 MG TABCR PO (10:09)
[2025-01-27] MEDS: PANTOPRAZOLE 40 MG TABLET PO (10:10)
[2025-01-27] MEDS: MONTELUKAST SODIUM 10 MG TABLET PO (10:10)
[2025-01-27] MEDS: ASCORBIC ACID 500 MG TABLET 1000 MG PO (10:11)
[2025-01-27] MEDS: FOLIC ACID 1 MG TABLET PO (10:11)
[2025-01-27] MEDS: LORATADINE 10 MG TABLET PO (10:13)
[2025-01-27] MEDS: CYANOCOBALAMIN 500 MCG TABLET PO (10:13)
[2025-01-27] MEDS: PREGABALIN (*CRX) 50 MG CAPSULE 200 MG PO (10:15)
[2025-01-27] MEDS: ISOSORBIDE MONONITRATE 60 MG TAB.ER.24H PO (10:16)
[2025-01-27] MEDS: ASPIRIN 81 MG ENTERIC TABLET PO (10:16)
[2025-01-27] MEDS: ATORVASTATIN 40 MG TABLET 80 MG PO (10:16)
[2025-01-27] MEDS: MULTIVITAMINS THERAPEUTIC TAB (*BKC) 1 TABLET PO (10:16)
[2025-01-27] MEDS: ENOXAPARIN 40 MG/0.4 ML SYRINGE SUB-Q (10:17)
[2025-01-27] MEDS: ROFLUMILAST 250 MCG TABLET PO (10:25)
[2025-01-27] MEDS: ACETAMINOPHEN 325 MG TABLET 650 MG PO (11:35)
[2025-01-27] MEDS: CALCIUM CARBONATE (TUMS) 500 MG (200 MG ELEMENTAL) PO (12:50)
[2025-01-27] MEDS: SIMETHICONE 125 MG CHEW TAB PO (12:50)
--- NOTE | 2025-01-27 15:21 | P.DS_ITS ---
DS: Admitting Diagnosis Discharge Date 01/27/2025 Admitting Diagnosis Shortness of breath DS: Discharge Diagnosis Discharge Diagnosis (1) Acute respiratory failure with hypoxia: Code(s): J96.01 - Acute respiratory failure with hypoxia Status: Acute Assessment and Plan: (2) COPD exacerbation: Code(s): J44.1 - Chronic obstructive pulmonary disease with (acute) exacerbation Status: Acute Assessment and Plan: (3) HTN (hypertension): Qualifiers: Hypertension type: primary hypertension Qualified Code(s): I10 - Essential (primary) hypertension Code(s): I10 - Essential (primary) hypertension Status: Chronic (4) Anxiety: Code(s): F41.9 - Anxiety disorder, unspecified Status: Acute Assessment and Plan: (5) SVT (supraventricular tachycardia): Code(s): I47.10 - Supraventricular tachycardia, unspecified Status: Acute Assessment and Plan: Plan Diet: Heart healthy GI Prophylaxis: N/a DVT Prophylaxis: SCDs IV fluids: LR at 150 mL/hr x1L Lines/Tubes: peripheral IV Code Status: full code DS: Summary Hospital Course Reason for hospitalization: Copied from [facility] 01/20: 89 y/o F with PMH of former smoker, COPD, HTN, hyperthyroidism, anxiety, and dementia presents here with shortness of breath. The patient presents here from home via EMS for further evaluation of shortness of breath. Onset 4-5 days ago with worsening this morning upon awakening. This was precipitated by a coarse cough that has been dry and exposure to a viral illness within her family. Denies chest pain, nausea, vomiting, diarrhea, fever, chills, rhinorrhea, or congestion. She is A&O x2 at baseline. Per chart review, the patient arrived to the ED with audible wheezing on exam and had persistent wheezing despite nebulizers. Initial VS at presentation: 98.7? F, HR 80, R 24, 151/75, and 96% on RA. ED workup showed: WBC 13.1, no anemia, no significant electrolyte derangements, renal function within normal limits, viral PCR negative. CXR showed clear lungs. EKG showed electronic atrial pacemaker and septal ID of indeterminate age, rate 89. Hospital Course: 89-year-old female with a history of COPD, hypertension, hyperthyroidism, anxiety, and dementia, was admitted for acute shortness of breath. Initial evaluation revealed audible wheezing and persistent respiratory distress despite nebulizer treatments, treated for acute respiratory failure with hypoxia due to a COPD exacerbation. Improved slowly but breathing improved at discharge 1. Acute Respiratory Failure with Hypoxia: The patient was managed with 2L supplemental oxygen, maintaining saturation levels above 92%. A transthoracic echocardiogram (TTE) showed hyperdynamic left ventricular ejection fraction (>70%). A CT angiogram on 01/22 ruled out pulmonary embolism and thoracic aortic dissection but indicated panlobular emphysematous disease. Pulmonary consultation was obtained, and recommendations were appreciated. The patient was deemed high risk for respiratory decompensation, but no advanced airway interventions were planned. Goals of care: No Bipap, No intubation. Respiratory status tenuous at times but no plan for advanced airways 01/22 CTA No pulmonary embolus. No thoracic aortic dissection. Panlobular emphysematous disease 2. COPD Exacerbation: The patient, a former smoker, experienced a COPD exacerbation likely triggered by recent viral illness exposure. Despite outpatient steroid treatment, symptoms persisted. Inpatient management included IV methylprednisolone, ceftriaxone, and azithromycin. Nebulized treatments were adjusted due to severe claustrophobia, switching to albuterol every 4 hours. Mucinex was scheduled, and home medications were continued with adjustments as needed. 3. Hypertension: The patient's blood pressure was monitored, and home medications, including Lisinopril and Metoprolol, were continued. 4. Anxiety: Severe anxiety impacted the patient's tolerance of respiratory treatments. Ativan was administered intravenously as needed, and Seroquel was available for oral administration when tolerated. 5. Supraventricular Tachycardia (SVT): The patient's Metoprolol dosage was adjusted to 12.5 mg every 6 hours with noted improvement, later transitioning from 25 to 50 mg XL daily. Continuous telemetry monitoring was conducted, and anxiety was considered a contributing factor. TTE showed a hyperdynamic LVEF, >70% Follow-Up: The patient is advised to follow up with her primary care physician and pulmonology. Status at Discharge Cognitive/behavioral status at discharge: A&Ox1 Time Spent with Patient Time attestation: Total time spent providing and/or coordinating discharge services:57 minutes Specific discharge activities: Medication review, chart review, discharge exam, Review of discharge instructions with caregiver Exam Narrative: General - Awake and alert. No acute distress, sitting up in chair at bedside at this time. On room air and no immediate distress, but does not appear well overall. . Eyes - PERRLA, EOM intact ENT - Patent posterior O/P without any edema, erythema or exudate. Neck - FROM, supple, No LN Cardiovascular - RRR, no m/r/g/h or displacement of PMI. No peripheral edema. Lungs: Decreased breath sounds throughout, no active wheezing or rhonchi. Skin - Skin warm and dry, no wounds or rashes Abdomen - Normal bowel sounds, abdomen soft and nontender Extremities - No edema, cyanosis or clubbing Musculoskeletal - Generalized weakness present in all extremities without any edema, joint erythema. Neurological ? Alert and oriented x 1, no focal deficits. Generalized weakness present. Psychological: Anxious DS: Data Data Completed and Pending Labs on day of discharge: Labs from last 24 hours 01/27/25 04:45 WBC 16.4 H RBC 4.87 Hgb 13.7 Hct 42.1 MCV 86.4 MCH 28.1 MCHC 32.5 RDW 13.8 Plt Count 236 MPV 10.7 H Immature Gran % (Auto) 0.6 H Neut % (Auto) 77.1 H Lymph % (Auto) 16.4 L [place] % (Auto) 5.4 Eos % (Auto) 0.4 Baso % (Auto) 0.1 L Lymph # (Auto) 2.68 [place] # (Auto) 0.9 H Eos # (Auto) 0.1 Baso # (Auto) 0.0 Abs Immat Gran (auto) 0.10 H Absolute Neuts (auto) 12.6 H Absolute Nucleated RBC 0.000 Nucleated RBC % 0.0 Discharge Plan Discharge Attending physician on discharge: Rhona Mcgill Consulting providers: Colleen Denney; Estelita Gonzalez; Moose Sorto; Melissa Feldman; Joseph Nielsen; Ramiro Aggarwal; Paddy Bird; Michelle Mendosa Discharging Clinician: Rhona Mcgill Anticipated Discharge Date/Time: 01/22/25 12:02 Patient Disposition: Home with Home Health Service Activity: november shower Diet: diabetic Discharge Instructions: Per Care Coordination Patient is current with [facility] for RN, PT [phone]. RN please fax completed discharge instructions to [phone] Repeat labs in 2 weeks, when off steroids. Completed antibiotics Follow up with your PCP in 1-2 weeks. Continue nebulizer treatments as tolerated Patient Instructions: Antibiotic Form Patient Language: Macedonian Stand Alone Forms: General Discharge Information Follow-up/Referrals: Kirby,MD Emelina [Primary Care Provider] - 2 Weeks Discharge Medications: New roflumilast [Daliresp] 250 mcg Tablet 250 mcg PO DAILY Qty: 30 0RF metoprolol succinate 50 mg Tablet Extended Release 24 Hr 50 mg PO QAM Qty: 30 1RF lidocaine 5 % adhesive patch,medicated 1 patch topical DAILY PRN (Reason: back pain) Qty: 30 0RF Rx Instructions: leave on most painful area for up to 12 hrs prednisolone 15 mg/5 mL solution 40 mg feeding tube DAILY Qty: 110 0RF Rx Instructions: 40mg daily for 3 days (01/28-01/30), then 30mg daily for 3 days (01/31-02/02), then 20mg daily for 3 days (02/03-02/05), then 10mg daily for 3 days (02/06-02/08), then stop omeprazole 40 mg capsule,delayed release(DR/EC) 40 mg feeding tube DAILY Qty: 30 0RF cholecalciferol (vitamin D3) 25 mcg (1,000 unit) tablet 25 mcg feeding tube DAILY Qty: 30 0RF Continued albuterol sulfate 90 mcg/actuation HFA aerosol inhaler 1 puff INHALATION Q6H PRN (Reason: shortness of breath or wheezing) atorvastatin 80 mg tablet 80 mg PO DAILY ipratropium-albuterol 0.5 mg-3 mg(2.5 mg base)/3 mL solution for nebulization 1.5 ml INHALATION BID isosorbide mononitrate 60 mg tablet extended release 24 hr 60 mg PO DAILY levothyroxine 100 mcg tablet 100 mcg PO DAILY lisinopril 10 mg tablet 20 mg PO DAILY megestrol 40 mg tablet 40 mg PO TID montelukast 10 mg tablet 10 mg PO DAILY pregabalin 100 mg capsule 200 mg PO BID quetiapine 25 mg tablet 25 mg PO HS sodium chloride 1,000 mg tablet,soluble 40 mg PO DAILY Breztri Aerosphere 160-9-4.8 mcg/actuation HFA aerosol inhaler 2 inh inhalation BID aspirin [Adult Aspirin Regimen] 81 mg tablet,delayed release (DR/EC) 81 mg PO DAILY Foltrate 0.5-1 mg tablet 1 tablet PO DAILY Rx Instructions: 50mg tablet ascorbic acid (vitamin C) 1,000 mg capsule 1,000 mg PO DAILY calcium carbonate [Calcium 600] 600 mg calcium (1,500 mg) tablet 600 mg PO DAILY [id number],6,9 no.3 18-600 mg-mcg capsule 1 cap PO DAILY calcium polycarbophil [Fiber (calcium polycarbophil)] 625 mg tablet 625 mg PO DAILY loratadine 10 mg tablet 10 mg PO DAILY acetaminophen [Tylenol Extra Strength] 500 mg tablet 500 mg PO ONCE PRN (Reason: pain) docusate sodium [Stool Softener] 100 mg capsule 100 mg PO DAILY PRN (Reason: constipation) Discontinued metoprolol succinate 25 mg tablet extended release 24 hr 25 mg PO DAILY omeprazole 20 mg capsule,delayed release(DR/EC) 20 mg PO DAILY Other Ambulatory Orders: Basic Metabolic Panel (Routine) Timeframe: 2 Weeks Location: Determined by Patient Ordered By: Rhona Mcgill Complete Blood Count with Diff (Routine) Timeframe: 2 Weeks Location: Determined by Patient Ordered By: Rhona Mcgill Date of admission: 01/21/25 16:18 Primary Care Provider: RoseEmelina Admitting Provider: Olesya Don Attending physician on admission: Rhona Mcgill Condition: Serious Quality VTE Prophylaxis VTE prophylaxis: pharmacologic ordered Hospitalist MIPS Heart Failure (Exclusion) Patient has history of Heart Transplant or Left Ventricular Assistive Device?: No IF YES, STOP HERE Heart Failure (Qualifier) Patient has current or prior documentation of LVEF less than or equal to 40%, or mod/servere depressed LVSF?: No IF NO, STOP HERE
== END 2025-01-27 15:40 | disposition home health service (06) | DRG 190 ==
LOC: ANHED 14:18 → ANH2MED 15:54
PROVIDERS: Internal Medicine Critical Care Medicine; Student in an Organized Health Care Education/Training Program; Admitting Provider Internal Medicine; Emergency Provider Emergency Medicine; PCP Family Medicine; Visit Provider Nurse Practitioner Acute Care
DX: J44.1 Chronic obstructive pulmonary disease with (acute) exacerbation (principal); J96.01 Acute respiratory failure with hypoxia; I47.10 Supraventricular tachycardia, unspecified; J44.0 Chronic obstructive pulmonary disease with (acute) lower respiratory infection; E05.90 Thyrotoxicosis, unspecified without thyrotoxic crisis or storm; F03.90 Unspecified dementia, unspecified severity, without behavioral disturbance, psychotic disturbance, mood disturbance, and anxiety; H35.30 Unspecified macular degeneration; F41.1 Generalized anxiety disorder; I10 Essential (primary) hypertension; H40.9 Unspecified glaucoma; F40.240 Claustrophobia; Z20.828 Contact with and (suspected) exposure to other viral communicable diseases; Z87.891 Personal history of nicotine dependence; I25.2 Old myocardial infarction; Z90.49 Acquired absence of other specified parts of digestive tract
CPT/HCPCS: 36415; 71045; 71275; 80048; 80053; 81001; 82803; 83880; 85025; 87637; 93005; 94640; 94667; 96374; 97166; 97530; 99285; A9270; C8929; G0378; J0456; J0696; J1650; J2060; J2919; J7050; J7120; J7512; Q9957; Q9967

== ENCOUNTER 2025-04-21 21:16 | Inpatient (IN) | payer MEDICARE, SELFPAY ==
--- OUTSIDE RECORDS SUMMARY | 2005-03-18 08:15 | XMS_ITS | Continuity of Care Document ---
Author Organization [facility] Address [address] [place] [address] [place] [address] Phone Care Team Providers Care Electroless Plater Name Role Phone Artem Salmeron Unavailable Unavailable Advance Directives Directive Yes / No Effective Date File Name No Information Encounters Encounter Description Practice Location Reason(s) For Visit Diagnoses Date Provider Providers Copied on Encounter [facility], [address], [place], [place], [id number], [place] tel:[phone] [facility] No Information Faviola Mcgill. [address], [place], [facility], [place]. tel:[phone] Referring Provider: Aminata Peters, [address] [place] [address], [place], [facility]. tel:[phone] Family History Family Member Type Diagnosis Age At Onset No Information Payers Payer name Insurance type Covered constitution party ID Authoriza tion(s) No Information Social History Type Description Quantity Date Captured Comments Sex Female Smoking Status No Information Chief Complaint And Reason For Visit No Information Reason For Referral Reason For Referral No Information History Of Present Illness Encounter Date Complaint History Of Prese nt Illness No Information Functional Status Date Functional Assessmen t No Information Instructions Date Instruction Additional Infor mation No Information Assessments Type Assessment Date No Information Patient Care Teams Name Effective Dates (start - stop) Status Members No Information
[2025-04-21] VITALS (12 sets, daily range): BP systolic 112–188; BP diastolic 46–73; PULSE 106–131; RESP 14–26; TEMP 37.7–38.6; O2SAT 88–100
--- NOTE | ~2025-04-21 | XR_ITS ---
EXAMINATION: XR chest ET placement DATE: 04/21/2025 22:21 INDICATION: Endotracheal tube retraction TECHNIQUE: frontal view of the chest was obtained. COMPARISON: Chest radiograph dated 04/21/2025 FINDINGS: Endotracheal tube tip 1.6 cm above the fercho. No focal airspace opacities, pulmonary edema, pleural effusion or pneumothorax. The cardiomediastinal silhouette is normal. Percutaneous gastrostomy tube projects over the body the stomach. Spinal stimulator leads project over the central canal the mid to lower thoracic spine with distal tip at the level of T8. IMPRESSION: 1. Endotracheal tube tip 1.6 cm above the fercho. No acute cardiopulmonary disease. Reviewed, dictated and finalized at location A. IMPRESSION: 1. Endotracheal tube tip 1.6 cm above the fercho. No acute cardiopulmonary dise ase.
--- NOTE | ~2025-04-21 | XR_ITS ---
XR abdomen gastric tube insert INDICATION: Evaluate OG tube position. TECHNIQUE: Limited KUB perform for evaluating NG tube . COMPARISON: No prior studies for comparison. FINDINGS: OG tube tip in the stomach. Visualized bowel gas pattern is unremarkable.Endotracheal tube tip 2.6 cm above the fercho. Spinal stimulator leads overlie the mid thoracic spine. There is a gastric tube present. IMPRESSION: 1: OG tube tip in the stomach. Reviewed, dictated and finalized at location O.
--- NOTE | ~2025-04-21 | CT_ITS ---
EXAMINATION: CT brain wo con DATE: 04/21/2025 22:44 INDICATION: Altered mental status. TECHNIQUE: Computed tomography (CT) of the head was performed without intravenous contrast. The mA was adjusted according to patient size. Iterative reconstruction technique was employed. The dose-length product was 605.33 mGy-cm. COMPARISON: Head CT 01/27/2018 FINDINGS: There are scattered areas of low attenuation in the cerebral white matter. There is no intracranial hemorrhage, acute infarction, or abnormal intracranial mass lesion. The ventricles are normal in size. There are likely changes of ocular lens replacement surgeries. There is mucosal thickening in the paranasal sinuses and nasal cavity. The mastoid air cells are normal. IMPRESSION: 1. Worsened moderate nonspecific cerebral white matter disease, which likely represents chronic small vessel ischemic disease. Reviewed, dictated and finalized at location E. IMPRESSION: 1. Worsened moderate nonspecific cerebral white matter disease, which likely re presents chronic small vessel ischemic disease.
--- NOTE | ~2025-04-21 | XR_ITS ---
Examination: XR chest ET placement Clinical History: LEISA/ ET PLACEMENT. Comparison: 01/21/2025 Technique: Portable AP Findings: ET tube within right mainstem bronchus. Spinal stimulator leads remain in place. Heart size normal. Emphysema and chronic interstitial changes. Focal eventration medial left hemidiaphragm. No acute bony abnormality. IMPRESSION: 1. ET tube tip within right mainstem bronchus. Recommend pullback. 2. No acute cardiopulmonary findings given portable technique. Reviewed, dictated and finalized at location R.
[2025-04-21] MEDS: EPINEPHrine HCL INJ 1 MG/ML AMPUL (21:21)
[2025-04-21] MEDS: RAPID SEQUENCE INTUBATION KIT 1 EACH (21:39)
--- NOTE | 2025-04-21 21:59 | PC.NURSE ---
pt came in with respiratory distress. Pt on CPAP upon arrival at 93%. RNs setting up for intubation. vitals at 2122 118 pulse 26 respirations 98% on CPAP 125/46 BP Ketamine 100mg given at @2123 Shashi 100mg SHASHI given @2124 pt has a 8 tube and is 27 at the lip.
--- NOTE | 2025-04-21 22:02 | PCRCNOTE ---
Patient intubated at appx 2130. ABG will be drawn 45 min to 1 hour after
[2025-04-21] MEDS: KETAMINE HCL (*CRX) 500 MG/10 ML VIAL 100 MG IV PUSH (22:08)
[2025-04-21] MEDS: LACTATED RINGERS 1,000 ML 999 ML IV CONT (22:09)
--- NOTE | 2025-04-21 22:14 | ED.AMS ---
HPI - Altered Mental Status General Chief Complaint: Altered Mental Status Stated Complaint: AMS/cyanotic now on cpap Time Seen by Provider: 04/21/25 21:39 History of Present Illness HPI narrative: 89-year-old female with history of severe COPD presenting to the emergency department in respiratory extremis and altered mental status. EMS was called to patient's household where she was having wheezing and difficulty breathing and lost consciousness in the ambulance rig. She was placed on CPAP and given albuterol steroids Atrovent and magnesium with no improvement. Patient has sonorous respirations but a palpable pulse. On arrival to the emergency department patient has a soft blood pressure in place in the room 7 for resuscitation and evaluation. Eating emergent intubation given patient's respiratory decompensation. Per EMS code status is full but not verified. Related Data Home Medications ?Medication ?Instructions ?Recorded ?Confirmed ?Last Taken ?Type acetaminophen 500 mg tablet 500 mg PO ONCE PRN pain 01/20/25 03/06/25 01/19/25 History (Tylenol Extra Strength) albuterol sulfate 90 mcg/actuation 1 puff inhalation Q6H PRN 01/20/25 03/06/25 01/20/25 History aerosol inhaler shortness of breath or wheezing ascorbic acid (vitamin C) 1,000 mg 1,000 mg PO DAILY 01/20/25 03/06/25 01/19/25 History capsule aspirin 81 mg tablet,delayed 81 mg PO DAILY 01/20/25 03/06/25 01/19/25 History release (Adult Aspirin Regimen) atorvastatin 80 mg tablet 80 mg PO DAILY 01/20/25 03/06/25 01/20/25 History budesonide 160 mcg-glycopyr 9 2 inh inhalation BID 01/20/25 03/06/25 01/19/25 History mcg-formot 4.8 mcg/actuation HFA inhaler (Breztri Aerosphere) calcium carbonate (Calcium 600) 600 mg PO DAILY 01/20/25 03/06/25 01/19/25 History calcium polycarbophil 625 mg 625 mg PO DAILY 01/20/25 03/06/25 01/19/25 History tablet (Fiber (calcium polycarbophil)) docusate sodium 100 mg capsule 100 mg PO DAILY PRN constipation 01/20/25 03/06/25 01/19/25 History (Stool Softener) ipratropium 0.5 mg-albuterol 3 mg 1.5 ml inhalation BID 01/20/25 03/06/25 01/19/25 History (2.5 mg base)/3 mL nebulization soln isosorbide mononitrate 60 mg 60 mg PO DAILY 01/20/25 03/06/25 01/19/25 History tablet,extended release 24 hr levothyroxine 100 mcg tablet 100 mcg PO DAILY 01/20/25 03/06/25 01/19/25 History lisinopril 10 mg tablet 20 mg PO DAILY 01/20/25 03/06/25 01/19/25 History loratadine 10 mg tablet 10 mg PO DAILY 01/20/25 03/06/25 01/19/25 History megestrol 40 mg tablet 40 mg PO TID 01/20/25 03/06/25 01/19/25 History montelukast 10 mg tablet 10 mg PO DAILY 01/20/25 03/06/25 01/19/25 History pregabalin 100 mg capsule 200 mg PO BID 01/20/25 03/06/25 01/19/25 History quetiapine 25 mg tablet 25 mg PO HS 01/20/25 03/06/25 01/19/25 History vitamin B12 0.5 mg-folic acid 1 mg 1 tablet PO DAILY 01/20/25 03/06/25 01/19/25 History tablet (Foltrate) hydroxyzine HCl 10 mg tablet 10 mg PO TID PRN 03/06/25 03/06/25 Unknown History Allergies Allergy/AdvReac Type Severity Reaction Status Date / Time codeine Allergy Unknown worsens Verified 04/22/25 03:15 pain Opioids - Morphine Analogues Allergy Unknown unconscious Verified 04/22/25 03:15 ness donepezil AdvReac Unknown sleeplessne Verified 04/22/25 03:15 ss memantine AdvReac Unknown sleeplessne Verified 04/22/25 03:15 ss Review of Systems Review of Systems: As reviewed above in HPI [facility] Past Medical History Medical History Hypothyroidism (acquired) History of AR (myocardial infarction) FIDE (generalized anxiety disorder) Anxiety Macular degeneration Cataracts, bilateral Hemorrhoids COPD (chronic obstructive pulmonary disease) HTN (hypertension) Surgical History Surgical History History of ankle surgery History of cholecystectomy History of intestinal surgery History of cardiac catheterization Family History Family History Other Depression Diabetes mellitus Family history of arthritis Family history of cardiovascular disease Family history of mental disorder Family history of thyroid disease Hypertension Social History Social History Smoking packs per day: 2 Smoking cigarettes per day: 40.0 Smoking status: Former smoker Alcohol intake: never Substance use: never Substance use type: does not use Do You Feel Safe in your Home?: Yes Lack of Transportation: No Lack of Food: Never True Current Housing: I Have Housing Concerned About Future Housing: No Difficulty Paying Gas/Electric Bills: No Difficulty Paying for Meds: No Currently Unemployed: No Education: High School Diploma/GED Difficulty w/ Childcare or Family Care: No Spiritual care concerns: No Exam Narrative: GENERAL: Obtunded, sinus respirations, drooling, CPAP in place HEAD: Normocephalic, atraumatic EYES: Pupils 3 mm and reactive to light ENT: Nares clear, no rhinorrhea or epistaxis. Mucous membranes moist. NECK: Supple. CHEST: Coarse bilateral breath sounds with prolonged expiratory phase and diffuse wheezing HEART: Tachycardic rate and regular rhythm. No murmur heard. Normal peripheral pulses ABDOMEN: [Soft, nondistended], [nontender], [No rigidity or guarding] EXTREMITIES: Normal range of motion. [No edema.] SKIN: Warm, dry, no rash. NEURO: Obtunded but pupils reactive. GCS 3 Course Vital Signs Vital signs: Vital Signs Temperature 37.7 C H 04/21/25 21:24 Pulse Rate 118 H 04/21/25 21:24 Respiratory Rate 26 H 04/21/25 21:24 Blood Pressure 125/46 L 04/21/25 21:24 Pulse Oximetry 98 04/21/25 21:24 Oxygen Delivery EMS-CPAP 04/21/25 21:24 Temperature 38.1 C H 04/22/25 03:00 Pulse Rate 100 04/22/25 03:00 Respiratory Rate 13 04/22/25 03:00 Blood Pressure 110/43 L 04/22/25 03:00 Pulse Oximetry 94 04/22/25 03:00 Oxygen Delivery Mechanical Ventilation 04/22/25 02:20 Fraction of Inspired Oxygen 50 04/22/25 02:20 Procedures Intubation Intubation #1: Intubation Date: 04/21/25 Intubation Time: 07:00 Time out performed: Yes sedative: Etomidate Mg Given: 20 paralytic: Rocuronium Mg Given: 100 Laryngoscope: fiber optic video scope Tube Size (cm): 7.5 Method of Intubation: orotracheal Number of Attempts: 1 Tube Secured Depth (cm): 23 Tube Secured Location: lips Tube Placement Confirmation: visualized tube passing through cords, equal breath sounds bilaterally, no breath sounds over epigastrium and confirmation by capnometry Patient Tolerated Procedure: well and no complications Intubation Complications: none MDM - Altered Mental Status MDM Narrative Medical decision making narrative: 89-year-old female with history of severe COPD presenting to the emergency department in respiratory extremis and altered mental status. EMS was called to patient's household where she was having wheezing and difficulty breathing and lost consciousness in the ambulance rig. She was placed on CPAP and given albuterol steroids Atrovent and magnesium with no improvement. Patient has sonorous respirations but a palpable pulse. On arrival to the emergency department patient has a soft blood pressure in place in the room 7 for resuscitation and evaluation. Eating emergent intubation given patient's respiratory decompensation. Per EMS code status is full but not verified. Patient given intramuscular 0.5 mg epinephrine for bronchodilation and improving her blood pressure. Current blood pressure 125/46. Given a fluid bolus and intubation set up. First pass success with glide scope within 802. Placed a 26 cm at the lip and then retracted 4 cm after x-ray confirmed right mainstem. Breath sounds diffusely wheezy with prolonged expiratory phase but symmetric now. Did have transient post intubation hypotensive down to the 50s to 60s range which required push dose epinephrine a total of 5 cc. Improved to the 120s. Fluids going. Started on antibiotics. CT of the head and ABG obtained as well as basic laboratory studies. Family members did arrived to the emergency department and confirmed that she was previously a modified code status where she was only getting medications rather than intubation and CPR efforts. I informed them of patient's critical nature on arrival without full knowledge and needing emergent interventions and airway protection with ventilator and they were understanding but would like her to be full DNR DNI confirmed by patient's paperwork and power of tax attorney at bedside. Wish to have the patient admitted for family to gather and treat her empirically at this time until decisions can be made regarding palliation and discontinuation of the ventilator. Currently placed on settings 16, 400, 50 and PEEP of 5. Already received steroids and now getting continuous albuterol through the in line tubing. CTs an ABG in blood work pending. Spoke to the [address] Gibbs who accepted the patient to the ICU after head CT. Awaiting discussion with hospitalist. Patient status formally changed to DNR/DNI per POA wishes and family's wishes. Patient accepted to the ICU at this time. Head CT unremarkable. Medical Records Attestation: I reviewed the patient's medical records. Lab Data Attestation: I reviewed the patient's lab results. 04/21/25 22:55 04/21/25 22:55 Labs: Lab Results 04/21/25 04/21/25 Range/Units 22:40 22:55 WBC 13.7 H (4.5-10.0) K/mm3 RBC 3.77 L (4.2-5.4) M/mm3 Hgb 10.7 L D (12.0-15.0) g/dL Hct 34.7 L (37.0-47.0) % MCV 92.0 (80-100) fl MCH 28.4 (26-34) pg MCHC 30.8 L (32-36) g/dl RDW 14.7 H (11.5-14.5) % Plt Count 199 (150-375) k/mm3 MPV 10.5 H (7.4-10.4) fl Immature Gran % (Auto) 0.5 (0-0.5) % Neut % (Auto) 84.8 H (45.5-73.1) % Lymph % (Auto) 8.4 L (18.3-44.2) % Porter % (Auto) 5.3 (2.6-8.5) % Eos % (Auto) 0.7 (0-4.4) % Baso % (Auto) 0.3 (0.2-1.2) % Lymph # (Auto) 1.15 (0.9-3.2) K/mm3 Porter # (Auto) 0.7 H (0.1-0.6) K/mm3 Eos # (Auto) 0.1 (0-0.3) K/mm3 Baso # (Auto) 0.0 (0.0-0.1) K/mm3 Abs Immat Gran (auto) 0.07 H (0.00-0.031) K/mm3 Absolute Neuts (auto) 11.6 H (1.3-6.7) K/mm3 Absolute Nucleated RBC 0.000 (0.0-0.012) K/mm3 Nucleated RBC % 0.0 (0.0-0.2) % PT 14.5 (11.1-14.7) Seconds INR 1.1 APTT 32.3 (22.3-36.8) Seconds Methemoglobin 0.4 (0-1.5) %THb Minute Volume Not Reportable Vent Mode Cmv Tidal Volume 400 ml PEEP 5 cmH2O Peak Inspir Pressure Not Reportable Pressure Support Not Reportable Sodium 139 (137-145) mmol/L Potassium 4.0 (3.4-5.0) mmol/L Chloride 104 (98-107) mmol/L Carbon Dioxide 26 (22-30) mmol/L Anion Gap 9 (4-12) mmol/L BUN 21 H (7-17) mg/dL Creatinine 0.75 (0.7-1.0) mg/dL Estim Creat Clear Calc Not Reportable Estimated GFR > 60 (59 - ) Glucose 130 H (65-110) mg/dL Lactic Acid 1.6 (0.7-2.0) mmol/L Calcium 8.6 (8.4-10.2) mg/dL Total Bilirubin 0.4 (0.2-1.3) mg/dL AST 23 (14-36) U/L ALT 16 (6-35) U/L Alkaline Phosphatase 78 (38-126) U/L C-Reactive Protein 2.6 H (<1.0) mg/dL Total Protein 6.4 (6.3-8.2) g/dL Albumin 3.6 (3.5-5.1) g/dL ABG Data ABG results: 04/21/25 22:40 Puncture Site Right radial ABG pH 7.323 L ABG pCO2 42.1 ABG pO2 177.6 H ABG PO2/FiO2 Ratio 2.54 ABG HCO3 21.4 L ABG O2 Saturation 99.1 ABG O2 Content 17.0 ABG Base Excess -4.5 A-a Gradient 276.2 Oxyhemoglobin 98.6 Carboxyhemoglobin 0.3 Reduced Hemoglobin 0.7 Total Hemoglobin 12.0 O2 Delivery Device Ventilator O2 Liters/Min Not Reportable Vent Rate 16 FiO2 70 Imaging Data Attestation: I personally reviewed and interpreted this imaging study as follows: My impression: No acute disease Critical Care Time Critical Care Time Critical Care Time: Yes Total Critical Care Time: 75 Discharge Plan Discharge Clinical Impression: Respiratory failure requiring intubation, Acute exacerbation of chronic obstructive pulmonary disease, Altered mental status Patient Disposition: Still a Patient Condition: Unstable
[2025-04-21] MEDS: MIDAZOLAM 100MG/NS 100ML(*CRX) 100 MG/100 ML BAG IV CONT (22:18)
[2025-04-21 22:50] LABS: Alveolar/Arterial O2 Gradient 276.2 mmHg; Carboxyhemoglobin 0.3 % THb (0-2.0); Fractional Inspired Oxygen 70 %; HCO3 ABG 21.4 mEq/l (22.0-26.0); Methemoglobin ABG 0.4 %THb (0-1.5); Oxygen Content ABG 17.0 %vol (16.0-22.0); Oxygen Saturation ABG 99.1 % (95.0-100.0); PCO2 ABG 42.1 mmHg (35.0-45.0); PO2 ABG 177.6 mmHg (80.0-100.0); PO2 FiO2 Ratio Arterial Blood 2.54 %; Reduced Hemoglobin 0.7 %THb (0-5.0)
[2025-04-21 23:04] LABS: Hematocrit 34.7 % (37.0-47.0); Hemoglobin 10.7 g/dL (12.0-15.0); Immature Granulocyte Percent A 0.5 % (0-0.5); Lymphocytes Absolute Auto 1.15 K/mm3 (0.9-3.2); Mean Corpuscular HGB Conc 30.8 g/dl (32-36); Mean Corpuscular Hemoglobin 28.4 pg (26-34); Mean Corpuscular Volume 92.0 fl (80-100); Nucleated Red Blood Cells Absolute Auto 0.000 K/mm3 (0.0-0.012); Nucleated Red Blood Cells Perc 0.0 % (0.0-0.2); Platelet Count Result 199 k/mm3 (150-375); Red Blood Count 3.77 M/mm3 (4.2-5.4); White Blood Count 13.7 K/mm3 (4.5-10.0)
[2025-04-21 23:05] LABS: Modified Allen's Test Pass; Site Drawn RIGHT RADIAL
[2025-04-21 23:06] LABS: Arterial Blood Gas Tidal Volume 400 ml; Arterial Blood Gas Ventilator rate 16 /MIN
[2025-04-21] MEDS: ALBUTEROL SULFATE NEB 2.5 MG/3 ML INH 10 MG INHALATION (23:07)
--- OUTSIDE RECORDS SUMMARY | 2025-04-21 23:14 | XMS_ITS | Clinical Summary ---
Author Organization [facility] [address] Address [address] [place] [address] Care Team Providers Care Lead Cargoman Name Role Phone Felipe Rodriguez MD Primary Care Provider Federico Jay MD Unavailable [phone] Allergies Active Allergy Reactions Criticality Noted Date [...] (two) times a day. Active DULoxetine DR (JAYNETA) 20 mg capsule Take two capsules in [...] (08/18/2018): Added automatically from request for surgery [id number] Abnormal findings on diagnostic imaging of diges tive system 08/18/2018 Overview (08/18/2018): Added automatically from request for surgery [id number] Paraparesis of both lower limbs 02/22/2018 Sensory loss 02/22/2018 Neuropathic pain 02/22/2018 Polypharmacy 02/22/2018 Sacroiliitis 10/07/2017 Lumbar radiculopathy 10/07/2017 Spondylolisthesis 08/29/2017 Spinal stenosis of lumbar region 08/29/2017 Disorder of bile duct 08/03/2017 Surgical History Surgery Date Site/Laterality Comments CT ERCP REMOVE CALCULI/DEBRI S BILIARY/PANCREAS DUCT CT CORRJ HLX VLGS BNCTY SESM DC RESCJ PROX PHLX BASE Bunion Correction By Ochoa Procedure - (Added by TW Conv) WRIST SURGERY LUMBAR NERVE STIMLATOR INSERTION 05/24/2018 N/A HYSTERECTOMY CHOLECYSTECTOMY LUMBAR FUSION Medical History Medical History Date Comments DVT (deep venous thrombosis) Urinary frequency Arthritis Sciatica Hypertension Memory deficit [...] on file Legal Sex 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 Gender Identity Not on file Sexual Orientation Not on file Obstetrics History Last Filed Vital Signs Vital Sign Reading Time Taken Comments Blood Pressure 170/77 09/14/2019 2:40 PM CDT Pulse 71 09/14/2019 2:40 PM CDT Temperature 36.7 C (98 F) 09/14/2019 2:40 PM CDT Respiratory Rate 11 08/30/2018 2:41 PM 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 INSTRUCTOR Oxygen Saturation 99% 08/30/2018 2:41 PM 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 Inhaled Oxygen Concentration - - Weight 64.6 kg (142 lb 6.4 oz) 09/14/2019 2:40 P M CDT Height 149.9 cm (4' 11) 08/30/2018 1:12 PM VISUAL 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 INSTRUCTOR Body Mass Index 28.76 08/30/2018 1:12 PM 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 Hardware Spine Lumbar Insurance [facility] MDCR HMO REF [place] [id number] [address] REF [place] [id number] [facility] MEDICARE [facility] MEDICARE Address: [address] [place] [address] Advance Directives For more information, please contact: [phone] Documents on File Type Date Recorded Patient Member Of The Legislative Assembly Expl anation ADVANCE DIRECTIVE 11/26/2017 12:00 AM ADVANCE DIRECTIVE 09/14/2017 11:22 PM ADVANCE DIRECTIVE 08/15/2017 12:00 AM * Full Code (Latest Code Status on File) Date Activated Date Inactivated Comments 08/30/2018 12:47 PM 08/30/2018 8:48 PM Care Teams Lead Cargoman Relationship Specialty [place] [id number] [address] [address] PCP - General 09/22/17 [place] [id number] [place] [address] Referring Physician Gastroenterology 09/04/18
[2025-04-21 23:26] LABS: Alanine Aminotransferase 16 U/L (6-35); Albumin Level 3.6 g/dL (3.5-5.1); Alkaline Phosphatase 78 U/L (38-126); Anion Gap 9 mmol/L (4-12); Aspartate Amino Transferase 23 U/L (14-36); Bilirubin,Total 0.4 mg/dL (0.2-1.3); Blood Urea Nitrogen 21 mg/dL (7-17); CRP 2.6 mg/dL (<1.0); Calcium 8.6 mg/dL (8.4-10.2); Carbon Dioxide 26 mmol/L (22-30); Chloride 104 mmol/L (98-107); Estimated Glomerular Filt Rate > 60; Glucose 130 mg/dL (65-110); Potassium 4.0 mmol/L (3.4-5.0); Sodium 139 mmol/L (137-145); Total Protein 6.4 g/dL (6.3-8.2)
[2025-04-21 23:27] LABS: INR 1.1; Prothrombin Time 14.5 Seconds (11.1-14.7)
[2025-04-21 23:28] LABS: Partial Thromboplastin Time 32.3 Seconds (22.3-36.8)
[2025-04-21] MEDS: cefTRIAXone 2 GM in SODIUM CHLORIDE 0.9% IV 100 ML 200 ML IVPB (23:43)
[2025-04-22] VITALS (7 sets, daily range): BP systolic 91–124; BP diastolic 43–60; PULSE 94–111; RESP 13–21; TEMP 37.8–38.6; O2SAT 91–98; BMI 36.1
--- NOTE | 2025-04-22 00:26 | PC.NURSE ---
Pt blood pressure @2132 WAS 72/43. EDP verbal order 1L NS bolus. EDP gave EPI @2134 with a pressure of 59/45 Pt blood pressure @2136 was 210/71 EDP ordered Versed as sedation.
[2025-04-22 00:32] LABS: Add Urine Microscopic? YES; Appearance Urine Clear (Clear); Glucose Urine UA Negative (Negative); Leukocyte Esterase Ur 2+ LEU/UL (Negative); Nitrate Urine Negative (Negative); Specific Grav Ur 1.016 (1.001-1.035)
--- NOTE | 2025-04-22 00:56 | WNDPHOTO ---
PHOTO ONLY - See Nursing Notes and/ or assessments for documentation.
--- NOTE | 2025-04-22 01:17 | ADMGEN ---
This patient, Roslyn Kasper, was admitted to Intensive Care Unit-6. Patient/family oriented to hospital policies and general routines including ID bracelet, bed and alarms, visiting hours, pain management, procedures, bathroom and other care routines, personal items, smoking policy, room service/diet, and visiting hours. Information on how to activate the Rapid Response Team has been discussed. Patient/Family are encouraged to report perceived risks to care and to ask questions if they do not understand what they are told or what they should do.
--- NOTE | 2025-04-22 02:23 | PC.NURSE ---
Many family members, including POA, at bedside with patient upon arrival to unit. Family requesting to speak with hospitalist regarding comfort measures. Family states patient would not want to be intubated. Dr. Low present for family conference where POA along with other family decided to withdrawal care.
[2025-04-22 02:30] LABS: MRSA (PCR) NOT DETECTED (NOT DETECTE)
[2025-04-22] MEDS: MORPHINE SULFATE INJ (*CRX) 10 MG/ML AMP 5 MG IV PUSH (02:53)
[2025-04-22] MEDS: diazePAM INJ (*CRX) 10 MG/2 ML SYRINGE IV PUSH (02:54)
--- NOTE | 2025-04-22 05:32 | PM.IMHP ---
H&P: HPI History of Present Illness Date/Time: 04/22/25 05:32 Chief Complaint: Respiratory distress Narrative: 89-year-old female with PMH severe COPD presented to [facility] to ER via EMS as she had acute onset of shortness of breath and wheezing. She was placed on CPAP and given albuterol and steroids and magnesium with no improvement. The patient lost consciousness, in the ER the patient was intubated emergently. After to patient the patient's POA multiple other family members were present. They reported the patient had wishes to be DNR/DNI. Review of Systems Review of Systems: All systems reviewed & are unremarkable except as noted in HPI and below ROS unobtainable: Yes unobtainable due to endotracheal tube, unobtainable due to medical condition and unobtainable due to mental status PMFSH Past Medical History Medical History Hypothyroidism (acquired) History of SC (myocardial infarction) FIDE (generalized anxiety disorder) Anxiety Macular degeneration Cataracts, bilateral Hemorrhoids COPD (chronic obstructive pulmonary disease) HTN (hypertension) Surgical History Surgical History History of ankle surgery History of cholecystectomy History of intestinal surgery History of cardiac catheterization Family History Family History Other Depression Diabetes mellitus Family history of arthritis Family history of cardiovascular disease Family history of mental disorder Family history of thyroid disease Hypertension Social History Social History Smoking packs per day: 2 Smoking cigarettes per day: 40.0 Smoking status: Former smoker Alcohol intake: never Substance use: never Substance use type: does not use Do You Feel Safe in your Home?: Yes Lack of Transportation: No Lack of Food: Never True Current Housing: I Have Housing Concerned About Future Housing: No Difficulty Paying Gas/Electric Bills: No Difficulty Paying for Meds: No Currently Unemployed: No Education: High School Diploma/GED Difficulty w/ Childcare or Family Care: No Spiritual care concerns: No Meds Home Medications and Allergies Home Medications ?Medication ?Instructions ?Recorded ?Confirmed ?Type acetaminophen 500 mg tablet 500 mg PO ONCE PRN pain 01/20/25 03/06/25 History (Tylenol Extra Strength) albuterol sulfate 90 mcg/actuation 1 puff inhalation Q6H PRN 01/20/25 03/06/25 History aerosol inhaler shortness of breath or wheezing ascorbic acid (vitamin C) 1,000 mg 1,000 mg PO DAILY 01/20/25 03/06/25 History capsule aspirin 81 mg tablet,delayed 81 mg PO DAILY 01/20/25 03/06/25 History release (Adult Aspirin Regimen) atorvastatin 80 mg tablet 80 mg PO DAILY 01/20/25 03/06/25 History budesonide 160 mcg-glycopyr 9 2 inh inhalation BID 01/20/25 03/06/25 History mcg-formot 4.8 mcg/actuation HFA inhaler (Breztri Aerosphere) calcium carbonate (Calcium 600) 600 mg PO DAILY 01/20/25 03/06/25 History calcium polycarbophil 625 mg 625 mg PO DAILY 01/20/25 03/06/25 History tablet (Fiber (calcium polycarbophil)) docusate sodium 100 mg capsule 100 mg PO DAILY PRN constipation 01/20/25 03/06/25 History (Stool Softener) ipratropium 0.5 mg-albuterol 3 mg 1.5 ml inhalation BID 01/20/25 03/06/25 History (2.5 mg base)/3 mL nebulization soln isosorbide mononitrate 60 mg 60 mg PO DAILY 01/20/25 03/06/25 History tablet,extended release 24 hr levothyroxine 100 mcg tablet 100 mcg PO DAILY 01/20/25 03/06/25 History lisinopril 10 mg tablet 20 mg PO DAILY 01/20/25 03/06/25 History loratadine 10 mg tablet 10 mg PO DAILY 01/20/25 03/06/25 History megestrol 40 mg tablet 40 mg PO TID 01/20/25 03/06/25 History montelukast 10 mg tablet 10 mg PO DAILY 01/20/25 03/06/25 History pregabalin 100 mg capsule 200 mg PO BID 01/20/25 03/06/25 History quetiapine 25 mg tablet 25 mg PO HS 01/20/25 03/06/25 History vitamin B12 0.5 mg-folic acid 1 mg 1 tablet PO DAILY 01/20/25 03/06/25 History tablet (Foltrate) cholecalciferol (vitamin D3) 25 25 mcg feeding tube DAILY #30 tabs 01/27/25 03/06/25 Rx mcg (1,000 unit) tablet lidocaine 5 % topical patch 1 patch topical DAILY PRN back 01/27/25 03/06/25 Rx pain #30 ea metoprolol succinate 50 mg 50 mg PO QAM #30 tabs 01/27/25 03/06/25 Rx tablet,extended release 24 hr omeprazole 40 mg capsule,delayed 40 mg feeding tube DAILY #30 caps 01/27/25 03/06/25 Rx release prednisolone 15 mg/5 mL oral 40 mg (13.3333 mL) feeding tube 01/27/25 03/06/25 Rx solution DAILY #110 mL hydroxyzine HCl 10 mg tablet 10 mg PO TID PRN 03/06/25 03/06/25 History Allergies Allergy/AdvReac Type Severity Reaction Status Date / Time codeine Allergy Unknown worsens Verified 04/22/25 03:15 pain Opioids - Morphine Analogues Allergy Unknown unconscious Verified 04/22/25 03:15 ness donepezil AdvReac Unknown sleeplessne Verified 04/22/25 03:15 ss memantine AdvReac Unknown sleeplessne Verified 04/22/25 03:15 ss Vital Signs Vital Signs - 24 hr 04/21/25 21:24 04/21/25 21:30 04/21/25 22:16 Temperature 99.9 F H Pulse Rate 118 H 131 H 118 H Respiratory Rate 26 H Blood Pressure 125/46 L Pulse Oximetry 98 100 100 Oxygen Delivery EMS-CPAP Mechanical Ventilation Mechanical Ventilation Fraction of Inspired Oxygen 70 70 04/21/25 22:18 04/21/25 22:50 04/21/25 22:59 Temperature Pulse Rate 114 H 106 H 108 H Respiratory Rate 16 14 Blood Pressure 188/72 H Pulse Oximetry 88 L Oxygen Delivery Fraction of Inspired Oxygen 04/21/25 23:08 04/21/25 23:13 04/21/25 23:15 Temperature Pulse Rate 118 H 118 H 109 H Respiratory Rate 14 14 Blood Pressure Pulse Oximetry 91 Oxygen Delivery Mechanical Ventilation Fraction of Inspired Oxygen 50 04/21/25 23:24 04/21/25 23:36 04/21/25 23:58 Temperature 101.4 F H Pulse Rate 109 H 113 H 111 H Respiratory Rate 19 14 Blood Pressure 115/73 112/60 Pulse Oximetry 91 98 97 Oxygen Delivery Mechanical Ventilation Fraction of Inspired Oxygen 50 04/22/25 01:01 04/22/25 01:15 04/22/25 01:30 Temperature 100.0 F H Pulse Rate 109 H 97 Respiratory Rate 14 Blood Pressure 91/47 L Pulse Oximetry 91 98 Oxygen Delivery Mechanical Ventilation Fraction of Inspired Oxygen 50 50 04/22/25 01:53 04/22/25 02:00 04/22/25 02:00 Temperature 100.2 F H Pulse Rate 94 94 Respiratory Rate 21 H Blood Pressure 124/55 L Pulse Oximetry 97 Oxygen Delivery Mechanical Ventilation Fraction of Inspired Oxygen 50 04/22/25 02:20 04/22/25 02:50 04/22/25 03:00 Temperature 100.5 F H Pulse Rate 98 100 100 Respiratory Rate 13 13 Blood Pressure 110/43 L Pulse Oximetry 92 94 Oxygen Delivery Mechanical Ventilation Fraction of Inspired Oxygen 50 Exam Const: General: comfortable and no acute distress Other: Sedated HENMT: Mouth: Yes moist mucous membranes Eyes: Pupils: Equal, round and reactive pupils present Neck: Neck: supple Resp: Other: Mechanical breath sounds, no other adventitious sounds Cardio: Rate: regular rate Rhythm: regular rhythm GI: Inspection: non-distended GI Palp: Yes Soft to palpation Neuro: Motor exam (neuro): 5/5 motor strength present throughout Extrem: General: no edema H&P: Results Labs Labs: Short CBC 04/21/25 Range/Units 22:55 WBC 13.7 H (4.5-10.0) K/mm3 Hgb 10.7 L D (12.0-15.0) g/dL Hct 34.7 L (37.0-47.0) % Plt Count 199 (150-375) k/mm3 BMP 04/21/25 22:55 Sodium 139 Potassium 4.0 Chloride 104 Carbon Dioxide 26 BUN 21 H Creatinine 0.75 Glucose 130 H Calcium 8.6 Liver Function 04/21/25 Range/Units 22:55 Total Bilirubin 0.4 (0.2-1.3) mg/dL AST 23 (14-36) U/L ALT 16 (6-35) U/L Alkaline Phosphatase 78 (38-126) U/L Albumin 3.6 (3.5-5.1) g/dL Urine 04/21/25 Range/Units 23:47 Urine Color Yellow (Yellow) Urine Appearance Clear (Clear) Urine pH 5.5 (5.0-9.0) Ur Specific [place] 1.016 (1.001-1.035) Urine Protein 2+ H (Negative) mg/dL Urine Glucose (UA) Negative (Negative) mg/dL Assessment and Plan Assessment and plan (1) COPD exacerbation: Code(s): J44.1 - Chronic obstructive pulmonary disease with (acute) exacerbation Status: Acute (2) Acute respiratory failure with hypoxia: Code(s): J96.01 - Acute respiratory failure with hypoxia Status: Acute Plan 89-year-old female with PMH severe COPD presented to [facility] to ER via EMS as she had acute onset of shortness of breath and wheezing. She was placed on CPAP and given albuterol and steroids and magnesium with no improvement. The patient lost consciousness, in the ER the patient was intubated emergently. After to patient the patient's POA multiple other family members were present. They reported the patient had wishes to be DNR/DNI. ----- Upon further discussion patient asked to withdrawal care. Please see summary Greater than 75 minutes spent in discussions with the family [id number] care with the patient. Hospitalist MIPS Advance Care Plan I have confirmed that the patient's Advanced Care Plan is present, code status is documented, or surrogate decision maker is listed in patient medical record.: Yes Medication Reconciliation The patient is not eligible for med reconciliation; the patient is in a emergent medical situation where delaying treatment would jeopardize the patients health.: Yes
--- NOTE | 2025-04-22 05:36 | PM.DDS ---
Discharge Summary Date and Time Date of : 04/22/25 Time of : 03:31 Provider Pronounced By: 2 RNs Name of First RN That Pronounced: Leslie Neves RN Name of Second RN That Pronounced: Mariaa Beasley RN Probable Cause of Probable Cause of : copd exacerbation and acute respiratory failure Summary Hospital Course: 89-year-old female with PMH severe COPD presented to [facility] to ER via EMS as she had acute onset of shortness of breath and wheezing. She was placed on CPAP and given albuterol and steroids and magnesium with no improvement. The patient lost consciousness, in the ER the patient was intubated emergently. The patient's POA and multiple other family members arrived. They reported the patient had wishes to be DNR/DNI. After admission to the ICU the family requested for withdrawal of care and extubation as per the patient's wishes. Patient extubated and at 3:31 a.m. on 04/22/2025. Additional Data Confirmation of as documented by pronouncing clinician: Pupillary Reflex, Palpable Pulses, Response to Stimuli, Heart Tones and Breath Sounds Family: at bedside Name of Provider Notified: Dr. Low Time Provider Notified: 03:31 Was code activated?: No Provider Requests Autopsy: No Family Requests Autopsy: No [employer]ake [employer]ler Notified: Yes Date [facility] Notified of : 04/22/25 Time [facility] Notified of : 03:49
== END 2025-04-22 03:31 | disposition expired | DRG 208 ==
LOC: ANHED 23:11 → ANHICU 23:46
PROVIDERS: Admitting Provider General Practice; Emergency Provider Student in an Organized Health Care Education/Training Program; PCP Family Medicine; Visit Provider General Practice
DX: J96.01 Acute respiratory failure with hypoxia (principal); J44.1 Chronic obstructive pulmonary disease with (acute) exacerbation; I10 Essential (primary) hypertension; I95.9 Hypotension, unspecified; H35.30 Unspecified macular degeneration; E03.9 Hypothyroidism, unspecified; F41.1 Generalized anxiety disorder; I25.2 Old myocardial infarction; Z79.82 Long term (current) use of aspirin; Z87.891 Personal history of nicotine dependence
CPT/HCPCS: 31500; 36415; 36600; 70450; 80053; 81001; 82375; 82805; 83050; 83605; 85018; 85025; 85610; 85730; 86140; 87040; 87086; 87186; 87641; 94002; 94640; 96365; 96375; 99291; A9270; J0166; J0168; J0696; J2250; J2270; J3360; J7030; J7120